=== PATIENT | female | born 1930 | race Caucasian/White ===

== ENCOUNTER 2016-10-09 07:08 | Emergency (ER) | payer MEDICARE, MEDICAID ==
[~2016-10-09 07:08] MED LIST: ACET-654 PO; ALBU83IN INH; ARIC10TA PO; ASPI81TA7 PO; ATEN25TA PO; ATEN50TA2 PO; CALTTAB11 PO; DIGO0.12 PO; ENSULIQ9 PO; FERR325T PO; FISH5CAP PO; FLAX10005 PO; FURO20TA2 PO; FURO40TA2 PO; LEVO88TA2 PO; LISI-542 PO; LOPR1TAB7 PO; OMEP40CA2 PO; POLYOPD OU; PRAD150C PO; PRIN10TA PO; SYNT88TA2 PO; TENO25TA PO; TYLE325T5 PO; XARE15TA PO; XARE20TA PO; albuterol; levoxyl; vitamin d
--- NOTE | 2016-10-09 08:00 | REPUSA ---
CLINICAL HISTORY: AMS. TECHNIQUE: Multiple axial CT images were obtained through the brain without IV contrast material. COMMENTS: Compared to 08/22/13 study. There is normal configuration of sella turcica. There are no intra or extra-axial collections. There is no mass effect or midline shift. There is no evidence of hematoma formation. No hydrocephalus is p resent. The ventricles are symmetrical. No abnormal calcifications are present. 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 There is diffuse age-appropriate cerebellar and cerebral atrophy with proportionally dilated ventricl es and cortical sulci. There are bilateral confluent periventricular and subcortical white matter hypolucencies compatible w ith severe chronic microvascular disease. Otherwise, no significant focal abnormalities are seen either in the posterior fossa or supratentoria l compartment. IMPRESSION: 1. Severe cerebellar and cerebral atrophy. 2. Severe chronic microvascular disease. 3. 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 4. No evidence of acute intracranial pathology. No interval change. Thank you for your kind referral of this patient.
[2016-10-09 08:06] LABS: BASO # 0.2 K/mm3 (0.0-0.2); BASO % 1.7 % (0.0-1.0); EOS # 0.5 K/mm3 (0.0-0.50); EOS % 5.5 % (0.0-3.0); LARGE UNSTAINED CELL # 0.2 K/mm3 (0.0-0.4); LARGE UNSTAINED CELL % 2.3 % (0.0-4.0); LYMPH # 1.2 K/mm3 (1.5-4.5); MEAN CORPUSCULAR HEMOGLOBIN 31.1 pg (27.0-33.0); MEAN CORPUSCULAR HGB CONC 33.6 g/dl (32.0-36.5); MEAN CORPUSCULAR VOLUME 92.7 fl (80.0-96.0); MONO # 0.8 K/mm3 (0.0-0.8); MONO % 9.2 % (0.0-5.0); NEUTROPHILS # 6.3 K/mm3 (1.8-7.7); NEUTROPHILS % 70.2 % (36.0-66.0); PLATELET COUNT, AUTOMATED 286 k/mm3 (150-450); WHITE BLOOD COUNT 8.9 K/mm3 (4.0-10.0)
[2016-10-09 08:22] LABS: ALBUMIN 3.9 GM/DL (3.2-5.2); ALBUMIN/GLOBULIN RATIO 0.98 (1.00-1.93); ALKALINE PHOSPHATASE 92 U/L (45-117); ALT/SGPT 28 U/L (12-78); ANION GAP 8 MEQ/L (8-16); AST/SGOT 23 U/L (15-37); BILIRUBIN,DIRECT 0.3 MG/DL (0.0-0.2); BILIRUBIN,TOTAL 1.2 MG/DL (0.2-1.0); BLOOD UREA NITROGEN 19 MG/DL (7-18); CALCIUM LEVEL 9.2 MG/DL (8.8-10.2); CARBON DIOXIDE LEVEL 33 MEQ/L (21-32); CHLORIDE LEVEL 101 MEQ/L (98-107); CREATININE FOR GFR 1.14 MG/DL (0.55-1.02); FREE T4 1.41 NG/DL (0.76-1.46); GLOMERULAR FILTRATION RATE 48.2 (>32); GLUCOSE, FASTING 97 MG/DL (83-110); POTASSIUM SERUM 3.5 MEQ/L (3.5-5.1); SODIUM LEVEL 142 MEQ/L (136-145); TOTAL PROTEIN 7.9 GM/DL (6.4-8.2)
--- NOTE | 2016-10-09 08:29 | REP ---
Clinical: Atrial fibrillation and chest pain . Comparison: 01/02/2016 . Technique: PA. Findings: The mediastinum and cardiac silhouette are normal. The lung sheffield demonstrate chronic stable changes and without acute consolidation, effusion, or pneumothorax. The skeletal structures are intact and normal. Impression: 1. No acute cardiopulmonary process. Signed by Myles Syed MD 10/09/2016 08:20 A
[2016-10-09 08:31] LABS: DIGOXIN LEVEL 0.9 NG/ML (0.5-2.0)
--- NOTE | 2016-10-09 09:59 | EDDOCDS ---
Nurse's Notes [facility] Name: Yashira Rangel Age: 86 yrs Sex: Female : 1930 Arrival Date: 10/09/2016 Time: 07:08 Bed 2 Private MD: Diagnosis: Unspecified dementia Presentation: 10/09 07:12 Presenting complaint: EMS states: found wandering around outside with pair of slippers ck1 and pajamas on. Patient found approximately 3-4 blocks from home address. Suicide/Homicide risk assessment- the patient denies having any suicidal and/or homicidal ideations and does not present with any other emotional, behavioral or mental health complaints. Status: Patient is not a ancillary services manager therapy or dependent. Transition of care: patient was not received from another setting of care. 07:12 Method Of Arrival: Ambulance ck1 07:29 Adult Sepsis Screening: The patient does not have new or worsening altered mentation. ck1 Patient's respiratory rate is less than 22. Systolic blood pressure is greater than 100. Patient has a qSOFA score of 0- Negative Sepsis Screen. 07:29 Acuity: SAVANAH Level 2 ck1 Triage Assessment: 07:28 General: Appears in no apparent distress, comfortable, Behavior is appropriate for age, ck1 cooperative. Pain: Denies pain. Neurological: Level of Consciousness is awake, confused, Oriented to person. Cardiovascular: Rhythm is sinus bradycardia. Respiratory: Respiratory effort is unlabored, Respiratory pattern is regular, symmetrical. GI: No deficits noted. Derm: Skin is pink, warm & dry. Musculoskeletal: Circulation, motion, and sensation intact Range of motion intact in all extremities. Historical: - Allergies: sulfamethoxazole-trimethoprim; Tylenol; Benadryl; Ceftin; Pravachol; Omeprazole; environmental allergies; - Home Meds: 1. Fish Oil 1,000 mg Oral cap daily 2. flax seed oil 1000 mg daily 3. Calcium + Vitamin D 600 - 400 mg Oral 2 tab daily 4. Lidoderm 5 % Topical ptmd 1 patch once daily 5. albuterol sulfate 2.5 mg /3 mL (0.083 %) Nebulizer nebu 3 times per day PRN 6. Artificial Tears Opht daily 7. ferrous sulfate 325 mg (65 mg iron) Oral cpER daily 8. Synthroid 88 mcg Oral tab 1 tab once daily 9. Aricept 10 mg Oral tab 1 tab once daily 10. tramadol 50 mg Oral tab every 6 hours PRN 11. furosemide 80 mg Oral tab 1 tab once daily 12. metoprolol tartrate 100 mg Oral tab 1 tab 2 times per day 13. Xarelto 15 mg oral tab daily 14. digoxin 125 mcg Oral tab 1 tab daily - PMHx: Hypothyroidism; Sleep Apnea w/o CPAP; Hypercholesterolemia; GERD; Atrial Fib; Dementia; - PSHx: Appendectomy; right carpal tongue; Colonoscopy; left carpal tunnel; Cholecystectomy; Cataract Surgery- Bilateral; - The history from nurses notes was reviewed: and I agree with what is documented. - Social history: Smoking status: Patient states former smoker of tobacco. No barriers to communication noted, The patient speaks fluent Lao, Speaks appropriately for age. - Family history: Not pertinent. - : The pt / caregiver states he / she is on anticoagulants: Xarelto Home medication list is obtained from [facility] office notes. - Hospitalizations: : No recent hospitalization is reported. - Exposure Risk Screening:: None identified. - Immunization history:: All immunizations up-to-date. - Social history:: the patient is a non-smoker, the patient does not drink alcohol, lives with daughter . Screenin:20 Screening information is obtained from prior medical records. Fall risk: At risk due to ck1 apparent cognitive impairment, The following interventions are performed due to a positive Fall Risk Screen: Fall Risk is added to Special Handling on the patient Summary Screen. A Fall Risk Bracelet was applied to the patient. Side Rails are placed in the up position. A Call Roche is given with instruction to call for help when getting out of bed. Fall Alert bracelet is placed on the patient. Abuse/DV Screen: The patient / caregiver reports he/she is: not in a situation that causes fear, pain or injury. Nutritional screening: No deficits noted. home support is adequate. 07:37 Assistance ADL's: Requires assistance with meal preparation, this assistance is ck1 provided by family members, medication administration, assistance is provided by family members. Advance Directives: There is an active Power of Space Engineer, Rosi Clifton (dtr). Assessment: 07:29 General: see triage note. ck1 08:20 General: Appears in no apparent distress, comfortable, Behavior is appropriate for age, ck1 cooperative. Pain: Denies pain. Neurological: Level of Consciousness is awake, confused, obeys commands, Oriented to person, place, time. Cardiovascular: Chest pain is denied. Respiratory: Respiratory effort is unlabored, Respiratory pattern is regular, symmetrical. GI: No deficits noted. Derm: Skin is intact, Skin is pink, warm & dry. 09:20 Reassessment: Patient appears in no apparent distress at this time. Patient denies pain ck1 at this time. 09:57 General: Appears in no apparent distress, comfortable, Behavior is appropriate for age, ck1 cooperative. Pain: Denies pain. Neurological: Level of Consciousness is awake, confused, obeys commands, Oriented to person. Respiratory: Respiratory effort is unlabored, Respiratory pattern is regular, symmetrical. GI: No deficits noted. Derm: Skin is intact, Skin is pink, warm & dry. Social Work Consult: 09:43 Social Work Note: Met with pt and her daughter and provided information on local ca services ([facility], [facility] daycare program, caregivers, etc). Pt's daughter is comfortable taking pt home and plans to initiate a number of plans to better care for pt in the daughter's home. No further needs at this time. Vital Signs: 07:18 BP 159 / 70 (auto/); ck1 07:19 BP 159 / 70; Pulse 63; Resp 18; Temp 97.0; Pulse Ox 97% on R/A; Weight 69.54 kg (M); ck1 Height 5 ft. 3 in. (160.02 cm); Pain 0/10; 07:21 Pulse 66 MON; Pulse Ox 95% ; ck1 07:45 BP 149 / 82 (auto/); ck1 07:46 Pulse 72 MON; Pulse Ox 96% ; ck1 08:00 BP 130 / 80 (auto/); ck1 08:01 Pulse 76 MON; Pulse Ox 96% ; ck1 08:15 BP 191 / 82 (auto/); ck1 08:16 Pulse 75 MON; Pulse Ox 97% ; ck1 08:30 BP 155 / 78 (auto/); ck1 08:31 Pulse 76 MON; Pulse Ox 100% ; ck1 08:45 BP 154 / 69 (auto/); ck1 08:46 Pulse 79 MON; Pulse Ox 95% ; ck1 09:00 BP 138 / 68 (auto/); ck1 09:00 Pulse 72 MON; Pulse Ox 96% ; ck1 09:15 BP 136 / 62 (auto/); ck1 09:16 Pulse 77 MON; Pulse Ox 98% ; ck1 09:56 BP 160 / 71; Pulse 89; Resp 18; Temp 96.7(O); Pulse Ox 97% on R/A; Pain 0/10; ck1 07:19 Body Mass Index 27.16 (69.54 kg, 160.02 cm) ck1 Vitals: 07:15 Log In Time N/A - ambulance arrival. ck1 ED Course: 07:09 Patient visited by Laura Lawson, Residential Building Inspector. deg 07:09 Patient moved to Waiting deg 07:10 Cat Garcia RN is Primary Nurse. deg 07:10 Valentine Ramirez RN is Primary Nurse. deg 07:10 Patient moved to 2 deg 07:14 Phi Franklin MD is Attending Physician. pc 07:27 Patient visited by Phi Franklin MD. pc 07:29 The patient / caregiver is instructed regarding the plan of care and ED course. ck1 07:30 Triage Initiated ck1 07:33 Patient visited by Kerwin Becker. tk 07:33 EKG done. (by ED staff). Reviewed by Phi Franklin MD. tk 07:52 TSH with Free T4 Sent. ck1 07:52 Digoxin Level Sent. ck1 07:52 CBC with Diff Sent. ck1 07:52 Cardiac Injury Profile Sent. ck1 07:52 Liver Profile Sent. ck1 07:52 MED Profile Sent. ck1 07:52 Thyroid Stimulating Hormone Sent. ck1 07:52 Troponin Sent. ck1 07:52 Inserted saline lock: 20 gauge in right hand The patient tolerated the procedure well. ck1 07:53 Patient visited by Valentine Ramirez,THUAN. ck1 08:17 Patient visited by Valentine Ramirez,THUAN. ck1 08:18 Urinalysis Sent. ck1 08:32 CT Head Without Contrast Returned. EDMS 08:33 Chest, 1 View Returned. EDMS 08:51 Patient visited by Valentine Ramirez,THUAN. ck1 09:17 Patient visited by Valentine Ramirez,THUAN. ck1 09:33 [facility] Payment Agreement was scanned into [employer] and attached to record. jp5 09:42 Referral list, As provided by [facility] is Referral Physician. pc 09:42 Miracle Chan FNP is Referral Physician. pc 09:56 Discontinued lock intact, bleeding controlled, pressure dressing applied, No ck1 redness/swelling at site. No procedures done that require assistance. Point of Care Testing: Blood Glucose: 08:17 Blood Glucose: 90 mg/dL; ck1 Ranges: Order Results: Lab Order: CBC with Diff; SPEC'M 10/09/16 07:51 Test: WHITE BLOOD COUNT; Value: 8.9; Range: 4.0-10.0; Units: K/mm3; Status: F Test: RED BLOOD COUNT; Value: 4.58; Range: 4.00-5.40; Units: M/mm3; Status: F Test: HEMOGLOBIN; Value: 14.2; Range: 12.0-16.0; Units: g/dl; Status: F Test: HEMATOCRIT; Value: 42.4; Range: 36.0-47.0; Units: %; Status: F Test: MEAN CORPUSCULAR VOLUME; Value: 92.7; Range: 80.0-96.0; Units: fl; Status: F Test: MEAN CORPUSCULAR HEMOGLOBIN; Value: 31.1; Range: 27.0-33.0; Units: pg; Status: F Test: MEAN CORPUSCULAR HGB CONC; Value: 33.6; Range: 32.0-36.5; Units: g/dl; Status: F Test: RED CELL DISTRIBUTION WIDTH; Value: 14.0; Range: 11.5-14.5; Units: %; Status: F Test: PLATELET COUNT, AUTOMATED; Value: 286; Range: 150-450; Units: k/mm3; Status: F Test: NEUTROPHILS %; Value: 70.2; Range: 36.0-66.0; Abnormal: Above high normal; Units: %; Status: F Test: LYMPH %; Value: 11.0; Range: 24.0-44.0; Abnormal: Below low normal; Units: %; Status: F Test: MONO %; Value: 9.2; Range: 0.0-5.0; Abnormal: Above high normal; Units: %; Status: F Test: EOS %; Value: 5.5; Range: 0.0-3.0; Abnormal: Above high normal; Units: %; Status: F Test: BASO %; Value: 1.7; Range: 0.0-1.0; Abnormal: Above high normal; Units: %; Status: F Test: LARGE UNSTAINED CELL %; Value: 2.3; Range: 0.0-4.0; Units: %; Status: F Test: NEUTROPHILS #; Value: 6.3; Range: 1.8-7.7; Units: K/mm3; Status: F Test: LYMPH #; Value: 1.2; Range: 1.5-4.5; Abnormal: Below low normal; Units: K/mm3; Status: F Test: MONO #; Value: 0.8; Range: 0.0-0.8; Units: K/mm3; Status: F Test: EOS #; Value: 0.5; Range: 0.0-0.50; Units: K/mm3; Status: F Test: BASO #; Value: 0.2; Range: 0.0-0.2; Units: K/mm3; Status: F Test: LARGE UNSTAINED CELL #; Value: 0.2; Range: 0.0-0.4; Units: K/mm3; Status: F Lab Order: Cardiac Injury Profile; SPEC'M 10/09/16 07:51 Test: CPK CREATINE PHOSPHOKINASE; Value: 63; Range: 26-192; Units: U/L; Status: F Test: CK-MB VALUE MASS; Value: 1.3; Range: 0.0-3.6; Units: NG/ML; Status: F Test: MB/CK RELATIVE INDEX; Value: 2.06; Range: < OR =4; Status: F Test Note: ; DIAGNOSIS CRITERIA MMB ng/ml Relative Index (RI) NON-AMI < or = 5 N/A POSEY ZONE > 5 < or = 4 AMI > 5 > 4 Lab Order: Liver Profile; SPEC'M 10/09/16 07:51 Test: AST/SGOT; Value: 23; Range: 15-37; Units: U/L; Status: F Test: ALT/SGPT; Value: 28; Range: 12-78; Units: U/L; Status: F Test: ALKALINE PHOSPHATASE; Value: 92; Range: 45-117; Units: U/L; Status: F Test: BILIRUBIN,TOTAL; Value: 1.2; Range: 0.2-1.0; Abnormal: Above high normal; Units: MG/DL; Status: F Test: BILIRUBIN,DIRECT; Value: 0.3; Range: 0.0-0.2; Abnormal: Above high normal; Units: MG/DL; Status: F Test: TOTAL PROTEIN; Value: 7.9; Range: 6.4-8.2; Units: GM/DL; Status: F Test: ALBUMIN; Value: 3.9; Range: 3.2-5.2; Units: GM/DL; Status: F Test: ALBUMIN/GLOBULIN RATIO; Value: 0.98; Range: 1.00-1.93; Abnormal: Below low normal; Status: F Lab Order: MED Profile; [facility] 10/09/16 07:51 Test: GLUCOSE, FASTING; Value: 97; Range: 83-110; Units: MG/DL; Status: F Test: BLOOD UREA NITROGEN; Value: 19; Range: 7-18; Abnormal: Above high normal; Units: MG/DL; Status: F Test: CREATININE FOR GFR; Value: 1.14; Range: 0.55-1.02; Abnormal: Above high normal; Units: MG/DL; Status: F Test: GLOMERULAR FILTRATION RATE; Value: 48.2; Range: >32; Status: F Test: SODIUM LEVEL; Value: 142; Range: 136-145; Units: MEQ/L; Status: F Test: POTASSIUM SERUM; Value: 3.5; Range: 3.5-5.1; Units: MEQ/L; Status: F Test: CHLORIDE LEVEL; Value: 101; Range: 98-107; Units: MEQ/L; Status: F Test: CARBON DIOXIDE LEVEL; Value: 33; Range: 21-32; Abnormal: Above high normal; Units: MEQ/L; Status: F Test: ANION GAP; Value: 8; Range: 8-16; Units: MEQ/L; Status: F Test: CALCIUM LEVEL; Value: 9.2; Range: 8.8-10.2; Units: MG/DL; Status: F Test Note: ; Units are mL/min/1.73 m2 Chronic Kidney Disease Staging per NKF: Stage I & II GFR >=60 Normal to Mildly Decreased Stage III GFR 30-59 Moderately Decreased Stage IV GFR 15-29 Severely Decreased Stage V GFR <15 Very Little GFR Left ESRD GFR <15 on INVESTMENT ANALYST Lab Order: Troponin; [facility] 10/09/16 07:51 Test: TROPONIN I; Value: < 0.02; Range: < 0.10; Units: NG/ML; Status: F Test Note: ; Troponin I Reference Interval for Siemens Ivisys LOCI: 99th Percentile= 0.00-0.045 ng/ml Risk Stratification: <= 0.10 ng/ml Decreased Risk for Adverse Clinical Events. 0.10-1.50 ng/ml Increased Risk for Adverse Clinical Events. Evaluation of additional criterion and/or repeat testing in 2-6 hours is suggested to rule out myocardial damage. >= 1.50 ng/ml Indicative of Myocardial Injury. Lab Order: Digoxin Level; [facility] 10/09/16 07:51 Test: DIGOXIN LEVEL; Value: 0.9; Range: 0.5-2.0; Units: NG/ML; Status: F Lab Order: TSH with Free T4; [facility] 10/09/16 07:51 Test: THYROID STIMULATING HORMONE; Value: 1.260; Range: 0.358-3.740; Units: uIU/ML; Status: F Test: FREE T4; Value: 1.41; Range: 0.76-1.46; Units: NG/DL; Status: F Lab Order: Urinalysis; [facility] 10/09/16 08:14 Test: APPEARANCE, URINE; Value: CLEAR; Range: CLEAR; Status: F Test: COLOR, URINE; Value: STRAW; Range: YELLOW; Status: F Test: PH,URINE; Value: 7.0; Range: 5.0-9.0; Units: UNITS; Status: F Test: SPECIFIC GRAVITY URINE AUTO; Value: 1.005; Range: 1.002-1.035; Status: F Test: PROTEIN, URINE AUTO; Value: NEGATIVE; Range: NEGATIVE; Units: mg/dL; Status: F Test: GLUCOSE, URINE (UA) AUTO; Value: NEGATIVE; Range: NEGATIVE; Units: mg/dL; Status: F Test: KETONE, URINE AUTO; Value: NEGATIVE; Range: NEGATIVE; Units: mg/dL; Status: F Test: UROBILINOGEN, URINE AUTO; Value: 0.2; Range: 0.0-2.0; Units: mg/dL; Status: F Test: BILIRUBIN, URINE AUTO; Value: NEGATIVE; Range: NEGATIVE; Status: F Test: NITRITE, URINE AUTO; Value: NEGATIVE; Range: NEGATIVE; Status: F Test: LEUKOCYTE ESTERASE, URINE AUTO; Value: TRACE; Range: NEGATIVE; Abnormal: Above high normal; Status: F Test: BLOOD, URINE BLOOD; Value: NEGATIVE; Range: NEGATIVE; Status: F Test: WBC, URINE AUTO; Value: 2; Range: 0-3; Units: /HPF; Status: F Test: RBC, URINE AUTO; Value: 2; Range: 0-3; Units: /HPF; Status: F Test: BACTERIA, URINE AUTO; Value: NEGATIVE; Range: NEGATIVE; Status: F Test: SQUAMOUS EPITHELIAL CELL UR AU; Value: 0; Range: 0-6; Units: /HPF; Status: F Test: HYALINE CAST, URINE AUTO; Value: 0; Range: 0-1; Units: /LPF; Status: F Lab Order: Fingerstick Blood Sugar; SPEC'M 10/09/16 08:16 Test: BEDSIDE GLUCOSE; Value: 94; Range: 83-110; Units: MG/DL; Status: F Radiology Order: CT Head Without Contrast Test: CT Head Without Contrast REASON FOR EXAMINATION: AMS; ; CLINICAL HISTORY: AMS.; TECHNIQUE: Multiple axial CT images were obtained through the brain without IV contrast material.; COMMENTS: Compared to 08/22/13 study.; There is normal configuration of sella turcica. There are no intra or extra-axial collections. There; is no mass effect or midline shift. There is no evidence of hematoma formation. No hydrocephalus is p; resent. The ventricles are symmetrical. 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 Severe cerebellar and cerebral atrophy.; 2. Severe chronic microvascular disease.; 3. 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 No evidence of acute intracranial pathology. No interval change.; Thank you for your kind referral of this patient.; ; ; Radiology Order: Chest, 1 View Test: Chest, 1 View REASON FOR EXAMINATION: Afib; Clinical: Atrial fibrillation and chest pain .; ; Comparison: 01/02/2016 .; ; Technique: PA.; ; Findings:; The mediastinum and cardiac silhouette are normal. The lung sheffield demonstrate; chronic stable changes and without acute consolidation, effusion, or; pneumothorax. The skeletal structures are intact and normal.; ; Impression:; 1. No acute cardiopulmonary process.; ; ; Signed by; Myles Syed MD 10/09/2016 08:20 A; Outcome: 07:35 CT Study completed. ck1 09:42 Discharge ordered by Provider. pc 09:56 Discharge Assessment: Patient awake, alert and oriented x 3. No cognitive and/or ck1 functional deficits noted. Patient verbalized understanding of disposition instructions. patient administered narcotics - no. The following High Risk Discharge criteria are identified: None. Discharged to home via wheelchair, with family. Condition: stable. Discharge instructions given to patient, Instructed on discharge instructions, follow up and referral plans. medication usage, Demonstrated understanding of instructions, medications, Pt was receptive of discharge instructions/ teaching. Property :Personal belongings accompany Pt. 09:57 Patient left the ED. ck1 Signatures: Dispatcher [employer] EDMS Phi Franklin MD MD pc Murray, Denise, Residential Building Inspector Unit deg Gris Licona, Valentine Shaikh RN RN ck1 Veronica Hardy jp5 Kerwin Becker Corrections: (The following items were deleted from the chart) 07:31 07:29 Acuity: SAVANAH Level 3 ck1 ck1 09:21 08:20 Neurological: Level of Consciousness is awake, alert, obeys commands, Oriented to ck1 person, place, time, ck1 MTDD
--- NOTE | 2016-10-09 09:59 | EDDOCDS ---
Physician Documentation [facility] Name: Yashira Rangel Age: 86 yrs Sex: Female : 1930 Arrival Date: 10/09/2016 Time: 07:08 Bed 2 Private MD: Disposition: 10/09 09:40 Critical Care: Critical care not applicable. pc Disposition: 10/09/16 09:42 Discharged to Home/Self Care. Impression: Unspecified dementia. - Condition is Stable. - Discharge Instructions: Dementia. - Medication Reconciliation, Local Pharmacy Hours form. - Follow up: Referral list, As provided by PFS; When: Call to arrange an appointment; Reason: Continuance of care. Follow up: Miracle Chan FNP; When: Call to arrange an appointment; Reason: Continuance of care. - Problem is an acute exacerbation. - Symptoms have improved. HPI: 07:42 This 86 yrs old Female presents to ER via Ambulance with complaints of pc Altered Mental Status. 07:42 The history is obtained from EMS providers. A reliable history and/or examination was pc not able to be obtained, due to baseline dementia. She was found wandering by a local restaurant in 22 degree weather, wearing only a night gown and slippers. The co director took her inside and and warmed her up by a fireplace and called police. EMS transported her here. She knows her last name and her . She has no visible injuries and denies any pain a dn has no complaints. Her EMR was reviewed, and it is noted that she has dementia, that she lives with her daughter, Rosi Clifton, who has been contacted by police and is on her way to the ED. 07:53 The patient has not experienced similar symptoms in the past. The patient has been pc recently seen by their primary care provider, and was started on a second dementia medication. Historical: - Allergies: sulfamethoxazole-trimethoprim; Tylenol; Benadryl; Ceftin; Pravachol; Omeprazole; environmental allergies; - Home Meds: 1. Fish Oil 1,000 mg Oral cap daily 2. flax seed oil 1000 mg daily 3. Calcium + Vitamin D 600 - 400 mg Oral 2 tab daily 4. Lidoderm 5 % Topical ptmd 1 patch once daily 5. albuterol sulfate 2.5 mg /3 mL (0.083 %) Nebulizer nebu 3 times per day PRN 6. Artificial Tears Opht daily 7. ferrous sulfate 325 mg (65 mg iron) Oral cpER daily 8. Synthroid 88 mcg Oral tab 1 tab once daily 9. Aricept 10 mg Oral tab 1 tab once daily 10. tramadol 50 mg Oral tab every 6 hours PRN 11. furosemide 80 mg Oral tab 1 tab once daily 12. metoprolol tartrate 100 mg Oral tab 1 tab 2 times per day 13. Xarelto 15 mg oral tab daily 14. digoxin 125 mcg Oral tab 1 tab daily - PMHx: Hypothyroidism; Sleep Apnea w/o CPAP; Hypercholesterolemia; GERD; Atrial Fib; Dementia; - PSHx: Appendectomy; right carpal tongue; Colonoscopy; left carpal tunnel; Cholecystectomy; Cataract Surgery- Bilateral; - The history from nurses notes was reviewed: and I agree with what is documented. - Social history: Smoking status: Patient states former smoker of tobacco. No barriers to communication noted, The patient speaks fluent Icelandic, Speaks appropriately for age. - Family history: Not pertinent. - : The pt / caregiver states he / she is on anticoagulants: Xarelto Home medication list is obtained from [facility] office notes. - Hospitalizations: : No recent hospitalization is reported. - Exposure Risk Screening:: None identified. - Immunization history:: All immunizations up-to-date. - Social history:: the patient is a non-smoker, the patient does not drink alcohol, lives with daughter . ROS: 07:53 All systems are negative except as listed. pc Exam: 07:53 General Appearance: no acute distress, alert. pc 07:53 EENT: normal eye inspection, ears, nose and throat normal, pharynx normal, mucous membranes moist 07:53 Neck: The exam reveals no acute abnormalities. ROM is normal and painless. No nuchal rigidity is noted.. 07:53 Respiratory: no respiratory distress, normal breath sounds, chest non-tender. 07:53 CVS: regular pulse rate, normal S1 and S2, no murmurs, strong peripheral pulses, irregularly irregular 07:53 Abdomen: soft, non-tender, no organomegaly, normal bowel sounds. 07:53 Back: normal inspection. 07:53 : bladder is non-distended, non-tender. 07:53 Skin: skin color is normal, warm, dry. 07:53 Extremities: The extremities have a grossly normal appearance, are non-tender, without acute ROM abnormalities. 07:53 Neuro: cranial nerves normal as tested, no motor deficits, no sensory deficits, not oriented to place, time. 07:53 Psych: normal mood. Vital Signs: 07:18 BP 159 / 70 (auto/); ck1 07:19 BP 159 / 70; Pulse 63; Resp 18; Temp 97.0; Pulse Ox 97% on R/A; Weight 69.54 kg / ck1 153.31 lbs (M); Height 5 ft. 3 in. (160.02 cm); Pain 0/10; 07:21 Pulse 66 MON; Pulse Ox 95% ; ck1 07:45 BP 149 / 82 (auto/); ck1 07:46 Pulse 72 MON; Pulse Ox 96% ; ck1 08:00 BP 130 / 80 (auto/); ck1 08:01 Pulse 76 MON; Pulse Ox 96% ; ck1 08:15 BP 191 / 82 (auto/); ck1 08:16 Pulse 75 MON; Pulse Ox 97% ; ck1 08:30 BP 155 / 78 (auto/); ck1 08:31 Pulse 76 MON; Pulse Ox 100% ; ck1 08:45 BP 154 / 69 (auto/); ck1 08:46 Pulse 79 MON; Pulse Ox 95% ; ck1 09:00 BP 138 / 68 (auto/); ck1 09:00 Pulse 72 MON; Pulse Ox 96% ; ck1 09:15 BP 136 / 62 (auto/); ck1 09:16 Pulse 77 MON; Pulse Ox 98% ; ck1 09:56 BP 160 / 71; Pulse 89; Resp 18; Temp 96.7(O); Pulse Ox 97% on R/A; Pain 0/10; ck1 07:19 Body Mass Index 27.16 (69.54 kg, 160.02 cm) ck1 MDM: 07:17 Pewter Finisher/Pulse Ox/q 15 min VS ordered. pc 07:17 Accucheck ordered. pc 07:17 IV Saline Lock ordered. pc 07:17 Rhythm Strip to chart ordered. pc 07:17 CBC with Diff Ordered. EDMS 07:17 Cardiac Injury Profile Ordered. EDMS 07:17 Liver Profile Ordered. EDMS 07:17 MED Profile Ordered. EDMS 07:18 Thyroid Stimulating Hormone Ordered. EDMS 07:18 Troponin Ordered. EDMS 07:18 Digoxin Level Ordered. EDMS 07:18 TSH with Free T4 Ordered. EDMS 07:18 CT Head Without Contrast Ordered. EDMS 07:19 Chest, 1 View Ordered. EDMS 07:19 ECG WITH READING ER PHYS+CARDIAG ordered. EDMS 07:53 Differential Diagnosis: dementia, found wandering without hypothermia and no signs of pc injury. Plan: labs, EKG, CT, CXR. Test interpretation: EKG. 08:15 Urinalysis Ordered. EDMS 08:17 CBC with Diff Reviewed. pc 08:24 Liver Profile Reviewed. pc 08:24 MED Profile Reviewed. pc 08:24 Urinalysis Reviewed. pc 08:24 Troponin Reviewed. pc 08:50 Liver Profile Reviewed. pc 08:50 MED Profile Reviewed. pc 08:50 Cardiac Injury Profile Reviewed. pc 08:50 Troponin Reviewed. pc 08:50 Digoxin Level Reviewed. pc 08:50 TSH with Free T4 Reviewed. pc 08:50 CT Head Without Contrast Reviewed. pc 08:50 Chest, 1 View Reviewed. pc 08:56 Fingerstick Blood Sugar Ordered. EDMS 09:09 Fingerstick Blood Sugar Reviewed. pc 09:12 Data reviewed: old medical records, vital signs, nurses notes, EKG(s), lab test pc results, all radiology studies and available results. Test interpretation: LAB - all labs as ordered have been reviewed, interpreted and considered in the overall management of the clinical presentation; X-RAY - interpreted by me, 1 view chest no acute disease, interpreted by Radiologist and personally reviewed, Head CT; no acute disease. The patient has been re-examined and re-evaluated. The clinical presentation did not require any ED treatment or interventions. ED course: Her daughter is in attendance and is requesting elementary school social worker involvement re: services, adult day care, etc.. Other consultation: The ED animal control licensing worker was notified and will evaluate the patient. 09:33 [facility] Payment Agreement was scanned into [employer] and attached to record. 5 09:33 Financial registration complete. 5 09:40 Disposition: The historical points, examination findings, and any diagnostic results pc supporting the provided diagnosis, were discussed with the patient or legal guardian. The need for outpatient follow up with the provider listed on their discharge instructions was discussed. They were encouraged to return to [facility], or the nearest ED, if symptoms worsen/persist, or for any other questions/concerns. EC:53 Rate is 71 beats/min. Rhythm is irregularly irregular, A fib. Left axis deviation pc noted. QRS is negative in leads II, aVF. QRS interval is normal. QT interval is normal. Q waves are Present in lead aVL. T waves are Inverted in lead aVL. ST Segment is depressed in leads I, aVL, <1mm. Clinical impression: Nonspecific ST-T changes, Atrial Fibrillation w/o RVR, and LAFB. No change from previous ECG in December,. Point of Care Testing: Blood Glucose: 08:17 Blood Glucose: 90 mg/dL; ck1 Ranges: Signatures: Dispatcher [employer] EDMS Phi Franklin MD MD pc Kim-Ashcraft, Connie, RN RN ck1 Veronica Hardy jp5 The chart was reviewed and I authenticate all verbal orders and agree with the evaluation and treatment provided.Corrections: (The following items were deleted from the chart) 07:58 07:42 She was found wandering by a local restaurant in 22 degree weather, wearing only pc a night gown and slippers. The co director took her inside and and warmed her up by a fireplace and called police. EMS transported her here. She knows her last name and her . pc Attachments: 09:33 [facility] Payment Agreement jp5 MTDD
--- NOTE | 2016-10-10 12:48 | ECGEPIP ---
Stationary ECG Study [facility] - ED Test Date: 2016-10-09 Pat Name: DEA BYERS Department: Room: - Gender: F Monkey Breeder: tk : 1930 Requested By: Phi River Order Number: [id number] Reading MD: Latia Pereira Measurements Intervals Soldier Rate: 71 P: VA: 0 QRS: -58 QRSD: 94 T: 72 QT: 419 QTc: 456 Interpretive Statements ATRIAL FIBRILLATION LEFT ANTERIOR FASCICULAR BLOCK MODERATE VOLTAGE CRITERIA FOR LVH, CONSIDER NORMAL VARIANT POSSIBLE ANTERIOR MYOCARDIAL INFARCTION, OF INDETERMINATE AGE DECREASED RATE 01/02/16 Electronically Signed On 10-10-2016 12:48:02 EST by Latia Pereira
--- NOTE | 2016-10-11 10:58 | EDDOCDS ---
Physician Documentation [facility] Name: Yashira Rangel Age: 86 yrs Sex: Female : 1930 Arrival Date: 10/09/2016 Time: 07:08 Bed 2 Private MD: Disposition: 10/09 09:40 Critical Care: Critical care not applicable. pc Disposition: 10/09/16 09:42 Discharged to Home/Self Care. Impression: Unspecified dementia. - Condition is Stable. - Discharge Instructions: Dementia. - Medication Reconciliation, Local Pharmacy Hours form. - Follow up: Referral list, As provided by PFS; When: Call to arrange an appointment; Reason: Continuance of care. Follow up: Miracle Chan FNP; When: Call to arrange an appointment; Reason: Continuance of care. - Problem is an acute exacerbation. - Symptoms have improved. HPI: 07:42 This 86 yrs old Female presents to ER via Ambulance with complaints of pc Altered Mental Status. 07:42 The history is obtained from EMS providers. A reliable history and/or examination was pc not able to be obtained, due to baseline dementia. She was found wandering by a local restaurant in 22 degree weather, wearing only a night gown and slippers. The business owner/engineer took her inside and and warmed her up by a fireplace and called police. EMS transported her here. She knows her last name and her . She has no visible injuries and denies any pain a dn has no complaints. Her EMR was reviewed, and it is noted that she has dementia, that she lives with her daughter, Rosi Clifton, who has been contacted by police and is on her way to the ED. 07:53 The patient has not experienced similar symptoms in the past. The patient has been pc recently seen by their primary care provider, and was started on a second dementia medication. Historical: - Allergies: sulfamethoxazole-trimethoprim; Tylenol; Benadryl; Ceftin; Pravachol; Omeprazole; environmental allergies; - Home Meds: 1. Fish Oil 1,000 mg Oral cap daily 2. flax seed oil 1000 mg daily 3. Calcium + Vitamin D 600 - 400 mg Oral 2 tab daily 4. Lidoderm 5 % Topical ptmd 1 patch once daily 5. albuterol sulfate 2.5 mg /3 mL (0.083 %) Nebulizer nebu 3 times per day PRN 6. Artificial Tears Opht daily 7. ferrous sulfate 325 mg (65 mg iron) Oral cpER daily 8. Synthroid 88 mcg Oral tab 1 tab once daily 9. Aricept 10 mg Oral tab 1 tab once daily 10. tramadol 50 mg Oral tab every 6 hours PRN 11. furosemide 80 mg Oral tab 1 tab once daily 12. metoprolol tartrate 100 mg Oral tab 1 tab 2 times per day 13. Xarelto 15 mg oral tab daily 14. digoxin 125 mcg Oral tab 1 tab daily - PMHx: Hypothyroidism; Sleep Apnea w/o CPAP; Hypercholesterolemia; GERD; Atrial Fib; Dementia; - PSHx: Appendectomy; right carpal tongue; Colonoscopy; left carpal tunnel; Cholecystectomy; Cataract Surgery- Bilateral; - The history from nurses notes was reviewed: and I agree with what is documented. - Social history: Smoking status: Patient states former smoker of tobacco. No barriers to communication noted, The patient speaks fluent Persian, Speaks appropriately for age. - Family history: Not pertinent. - : The pt / caregiver states he / she is on anticoagulants: Xarelto Home medication list is obtained from [facility] office notes. - Hospitalizations: : No recent hospitalization is reported. - Exposure Risk Screening:: None identified. - Immunization history:: All immunizations up-to-date. - Social history:: the patient is a non-smoker, the patient does not drink alcohol, lives with daughter . ROS: 07:53 All systems are negative except as listed. pc Exam: 07:53 General Appearance: no acute distress, alert. pc 07:53 EENT: normal eye inspection, ears, nose and throat normal, pharynx normal, mucous membranes moist 07:53 Neck: The exam reveals no acute abnormalities. ROM is normal and painless. No nuchal rigidity is noted.. 07:53 Respiratory: no respiratory distress, normal breath sounds, chest non-tender. 07:53 CVS: regular pulse rate, normal S1 and S2, no murmurs, strong peripheral pulses, irregularly irregular 07:53 Abdomen: soft, non-tender, no organomegaly, normal bowel sounds. 07:53 Back: normal inspection. 07:53 : bladder is non-distended, non-tender. 07:53 Skin: skin color is normal, warm, dry. 07:53 Extremities: The extremities have a grossly normal appearance, are non-tender, without acute ROM abnormalities. 07:53 Neuro: cranial nerves normal as tested, no motor deficits, no sensory deficits, not oriented to place, time. 07:53 Psych: normal mood. Vital Signs: 07:18 BP 159 / 70 (auto/); ck1 07:19 BP 159 / 70; Pulse 63; Resp 18; Temp 97.0; Pulse Ox 97% on R/A; Weight 69.54 kg / ck1 153.31 lbs (M); Height 5 ft. 3 in. (160.02 cm); Pain 0/10; 07:21 Pulse 66 MON; Pulse Ox 95% ; ck1 07:45 BP 149 / 82 (auto/); ck1 07:46 Pulse 72 MON; Pulse Ox 96% ; ck1 08:00 BP 130 / 80 (auto/); ck1 08:01 Pulse 76 MON; Pulse Ox 96% ; ck1 08:15 BP 191 / 82 (auto/); ck1 08:16 Pulse 75 MON; Pulse Ox 97% ; ck1 08:30 BP 155 / 78 (auto/); ck1 08:31 Pulse 76 MON; Pulse Ox 100% ; ck1 08:45 BP 154 / 69 (auto/); ck1 08:46 Pulse 79 MON; Pulse Ox 95% ; ck1 09:00 BP 138 / 68 (auto/); ck1 09:00 Pulse 72 MON; Pulse Ox 96% ; ck1 09:15 BP 136 / 62 (auto/); ck1 09:16 Pulse 77 MON; Pulse Ox 98% ; ck1 09:56 BP 160 / 71; Pulse 89; Resp 18; Temp 96.7(O); Pulse Ox 97% on R/A; Pain 0/10; ck1 07:19 Body Mass Index 27.16 (69.54 kg, 160.02 cm) ck1 MDM: 07:17 Flight Test Data Acquisition Technician/Pulse Ox/q 15 min VS ordered. pc 07:17 Accucheck ordered. pc 07:17 IV Saline Lock ordered. pc 07:17 Rhythm Strip to chart ordered. pc 07:17 CBC with Diff Ordered. EDMS 07:17 Cardiac Injury Profile Ordered. EDMS 07:17 Liver Profile Ordered. EDMS 07:17 MED Profile Ordered. EDMS 07:18 Thyroid Stimulating Hormone Ordered. EDMS 07:18 Troponin Ordered. EDMS 07:18 Digoxin Level Ordered. EDMS 07:18 TSH with Free T4 Ordered. EDMS 07:18 CT Head Without Contrast Ordered. EDMS 07:19 Chest, 1 View Ordered. EDMS 07:19 ECG WITH READING ER PHYS+CARDIAG ordered. EDMS 07:53 Differential Diagnosis: dementia, found wandering without hypothermia and no signs of pc injury. Plan: labs, EKG, CT, CXR. Test interpretation: EKG. 08:15 Urinalysis Ordered. EDMS 08:17 CBC with Diff Reviewed. pc 08:24 Liver Profile Reviewed. pc 08:24 MED Profile Reviewed. pc 08:24 Urinalysis Reviewed. pc 08:24 Troponin Reviewed. pc 08:50 Liver Profile Reviewed. pc 08:50 MED Profile Reviewed. pc 08:50 Cardiac Injury Profile Reviewed. pc 08:50 Troponin Reviewed. pc 08:50 Digoxin Level Reviewed. pc 08:50 TSH with Free T4 Reviewed. pc 08:50 CT Head Without Contrast Reviewed. pc 08:50 Chest, 1 View Reviewed. pc 08:56 Fingerstick Blood Sugar Ordered. EDMS 09:09 Fingerstick Blood Sugar Reviewed. pc 09:12 Data reviewed: old medical records, vital signs, nurses notes, EKG(s), lab test pc results, all radiology studies and available results. Test interpretation: LAB - all labs as ordered have been reviewed, interpreted and considered in the overall management of the clinical presentation; X-RAY - interpreted by me, 1 view chest no acute disease, interpreted by Radiologist and personally reviewed, Head CT; no acute disease. The patient has been re-examined and re-evaluated. The clinical presentation did not require any ED treatment or interventions. ED course: Her daughter is in attendance and is requesting oncology social worker involvement re: services, adult day care, etc.. Other consultation: The ED psychiatric social worker supervisor was notified and will evaluate the patient. 09:33 [facility] [place] [facility] Payment Agreement was scanned into [employer] and attached to record. 5 09:33 Financial registration complete. jp5 09:40 Disposition: The historical points, examination findings, and any diagnostic results pc supporting the provided diagnosis, were discussed with the patient or legal guardian. The need for outpatient follow up with the provider listed on their discharge instructions was discussed. They were encouraged to return to [facility], or the nearest ED, if symptoms worsen/persist, or for any other questions/concerns. 01/16 11:03 ECG/EKG was scanned into [employer] and attached to record. 11:03 Radiology Report was scanned into [employer] and attached to record. EC/15 07:53 Rate is 71 beats/min. Rhythm is irregularly irregular, A fib. Left axis deviation pc noted. QRS is negative in leads II, aVF. QRS interval is normal. QT interval is normal. Q waves are Present in lead aVL. T waves are Inverted in lead aVL. ST Segment is depressed in leads I, aVL, <1mm. Clinical impression: Nonspecific ST-T changes, Atrial Fibrillation w/o RVR, and LAFB. No change from previous ECG in December,. Point of Care Testing: Blood Glucose: 08:17 Blood Glucose: 90 mg/dL; ck1 Ranges: Signatures: Dispatcher [employer] EDMS Phi Franklin MD MD pc Barnhardt, Gloria, Reg Reg Valentine MnedozaRN RN ck1 Veronica Hardy jp5 The chart was reviewed and I authenticate all verbal orders and agree with the evaluation and treatment provided.Corrections: (The following items were deleted from the chart) 07:58 07:42 She was found wandering by a local restaurant in 22 degree weather, wearing only pc a night gown and slippers. The business owner/engineer took her inside and and warmed her up by a fireplace and called police. EMS transported her here. She knows her last name and her . pc Attachments: 09:33 [facility] Payment Agreement jp5 10/10 11:03 ECG/EKG Chart Complete MTDD
--- NOTE | 2016-10-11 10:58 | EDDOCDS ---
Physician Documentation [facility] Name: Yashira Rangel Age: 86 yrs Sex: Female : 1930 Arrival Date: 10/09/2016 Time: 07:08 Bed 2 Private MD: Disposition: 10/09 09:40 Critical Care: Critical care not applicable. pc Disposition: 10/09/16 09:42 Discharged to Home/Self Care. Impression: Unspecified dementia. - Condition is Stable. - Discharge Instructions: Dementia. - Medication Reconciliation, Local Pharmacy Hours form. - Follow up: Referral list, As provided by [facility]; When: Call to arrange an appointment; Reason: Continuance of care. Follow up: Miracle Chan FNP; When: Call to arrange an appointment; Reason: Continuance of care. - Problem is an acute exacerbation. - Symptoms have improved. HPI: 07:42 This 86 yrs old Female presents to ER via Ambulance with complaints of pc Altered Mental Status. 07:42 The history is obtained from EMS providers. A reliable history and/or examination was pc not able to be obtained, due to baseline dementia. She was found wandering by a local restaurant in 22 degree weather, wearing only a night gown and slippers. The garment presser took her inside and and warmed her up by a fireplace and called police. EMS transported her here. She knows her last name and her . She has no visible injuries and denies any pain a dn has no complaints. Her EMR was reviewed, and it is noted that she has dementia, that she lives with her daughter, Rosi Clifton, who has been contacted by police and is on her way to the ED. 07:53 The patient has not experienced similar symptoms in the past. The patient has been pc recently seen by their primary care provider, and was started on a second dementia medication. Historical: - Allergies: sulfamethoxazole-trimethoprim; Tylenol; Benadryl; Ceftin; Pravachol; Omeprazole; environmental allergies; - Home Meds: 1. Fish Oil 1,000 mg Oral cap daily 2. flax seed oil 1000 mg daily 3. Calcium + Vitamin D 600 - 400 mg Oral 2 tab daily 4. Lidoderm 5 % Topical ptmd 1 patch once daily 5. albuterol sulfate 2.5 mg /3 mL (0.083 %) Nebulizer nebu 3 times per day PRN 6. Artificial Tears Opht daily 7. ferrous sulfate 325 mg (65 mg iron) Oral cpER daily 8. Synthroid 88 mcg Oral tab 1 tab once daily 9. Aricept 10 mg Oral tab 1 tab once daily 10. tramadol 50 mg Oral tab every 6 hours PRN 11. furosemide 80 mg Oral tab 1 tab once daily 12. metoprolol tartrate 100 mg Oral tab 1 tab 2 times per day 13. Xarelto 15 mg oral tab daily 14. digoxin 125 mcg Oral tab 1 tab daily - PMHx: Hypothyroidism; Sleep Apnea w/o CPAP; Hypercholesterolemia; GERD; Atrial Fib; Dementia; - PSHx: Appendectomy; right carpal tongue; Colonoscopy; left carpal tunnel; Cholecystectomy; Cataract Surgery- Bilateral; - The history from nurses notes was reviewed: and I agree with what is documented. - Social history: Smoking status: Patient states former smoker of tobacco. No barriers to communication noted, The patient speaks fluent Wolof, Speaks appropriately for age. - Family history: Not pertinent. - : The pt / caregiver states he / she is on anticoagulants: Xarelto Home medication list is obtained from [facility] office notes. - Hospitalizations: : No recent hospitalization is reported. - Exposure Risk Screening:: None identified. - Immunization history:: All immunizations up-to-date. - Social history:: the patient is a non-smoker, the patient does not drink alcohol, lives with daughter . ROS: 07:53 All systems are negative except as listed. pc Exam: 07:53 General Appearance: no acute distress, alert. pc 07:53 EENT: normal eye inspection, ears, nose and throat normal, pharynx normal, mucous membranes moist 07:53 Neck: The exam reveals no acute abnormalities. ROM is normal and painless. No nuchal rigidity is noted.. 07:53 Respiratory: no respiratory distress, normal breath sounds, chest non-tender. 07:53 CVS: regular pulse rate, normal S1 and S2, no murmurs, strong peripheral pulses, irregularly irregular 07:53 Abdomen: soft, non-tender, no organomegaly, normal bowel sounds. 07:53 Back: normal inspection. 07:53 : bladder is non-distended, non-tender. 07:53 Skin: skin color is normal, warm, dry. 07:53 Extremities: The extremities have a grossly normal appearance, are non-tender, without acute ROM abnormalities. 07:53 Neuro: cranial nerves normal as tested, no motor deficits, no sensory deficits, not oriented to place, time. 07:53 Psych: normal mood. Vital Signs: 07:18 BP 159 / 70 (auto/); ck1 07:19 BP 159 / 70; Pulse 63; Resp 18; Temp 97.0; Pulse Ox 97% on R/A; Weight 69.54 kg / ck1 153.31 lbs (M); Height 5 ft. 3 in. (160.02 cm); Pain 0/10; 07:21 Pulse 66 MON; Pulse Ox 95% ; ck1 07:45 BP 149 / 82 (auto/); ck1 07:46 Pulse 72 MON; Pulse Ox 96% ; ck1 08:00 BP 130 / 80 (auto/); ck1 08:01 Pulse 76 MON; Pulse Ox 96% ; ck1 08:15 BP 191 / 82 (auto/); ck1 08:16 Pulse 75 MON; Pulse Ox 97% ; ck1 08:30 BP 155 / 78 (auto/); ck1 08:31 Pulse 76 MON; Pulse Ox 100% ; ck1 08:45 BP 154 / 69 (auto/); ck1 08:46 Pulse 79 MON; Pulse Ox 95% ; ck1 09:00 BP 138 / 68 (auto/); ck1 09:00 Pulse 72 MON; Pulse Ox 96% ; ck1 09:15 BP 136 / 62 (auto/); ck1 09:16 Pulse 77 MON; Pulse Ox 98% ; ck1 09:56 BP 160 / 71; Pulse 89; Resp 18; Temp 96.7(O); Pulse Ox 97% on R/A; Pain 0/10; ck1 07:19 Body Mass Index 27.16 (69.54 kg, 160.02 cm) ck1 MDM: 07:17 Movement Assembly Final Inspector/Pulse Ox/q 15 min VS ordered. pc 07:17 Accucheck ordered. pc 07:17 IV Saline Lock ordered. pc 07:17 Rhythm Strip to chart ordered. pc 07:17 CBC with Diff Ordered. EDMS 07:17 Cardiac Injury Profile Ordered. EDMS 07:17 Liver Profile Ordered. EDMS 07:17 MED Profile Ordered. EDMS 07:18 Thyroid Stimulating Hormone Ordered. EDMS 07:18 Troponin Ordered. EDMS 07:18 Digoxin Level Ordered. EDMS 07:18 TSH with Free T4 Ordered. EDMS 07:18 CT Head Without Contrast Ordered. EDMS 07:19 Chest, 1 View Ordered. EDMS 07:19 ECG WITH READING ER PHYS+CARDIAG ordered. EDMS 07:53 Differential Diagnosis: dementia, found wandering without hypothermia and no signs of pc injury. Plan: labs, EKG, CT, CXR. Test interpretation: EKG. 08:15 Urinalysis Ordered. EDMS 08:17 CBC with Diff Reviewed. pc 08:24 Liver Profile Reviewed. pc 08:24 MED Profile Reviewed. pc 08:24 Urinalysis Reviewed. pc 08:24 Troponin Reviewed. pc 08:50 Liver Profile Reviewed. pc 08:50 MED Profile Reviewed. pc 08:50 Cardiac Injury Profile Reviewed. pc 08:50 Troponin Reviewed. pc 08:50 Digoxin Level Reviewed. pc 08:50 TSH with Free T4 Reviewed. pc 08:50 CT Head Without Contrast Reviewed. pc 08:50 Chest, 1 View Reviewed. pc 08:56 Fingerstick Blood Sugar Ordered. EDMS 09:09 Fingerstick Blood Sugar Reviewed. pc 09:12 Data reviewed: old medical records, vital signs, nurses notes, EKG(s), lab test pc results, all radiology studies and available results. Test interpretation: LAB - all labs as ordered have been reviewed, interpreted and considered in the overall management of the clinical presentation; X-RAY - interpreted by me, 1 view chest no acute disease, interpreted by Radiologist and personally reviewed, Head CT; no acute disease. The patient has been re-examined and re-evaluated. The clinical presentation did not require any ED treatment or interventions. ED course: Her daughter is in attendance and is requesting outreach and education social worker involvement re: services, adult day care, etc.. Other consultation: The ED trail maintenance worker was notified and will evaluate the patient. 09:33 [facility] [place] into [employer] and attached to record. 5 09:33 Financial registration complete. jp5 09:40 Disposition: The historical points, examination findings, and any diagnostic results pc supporting the provided diagnosis, were discussed with the patient or legal guardian. The need for outpatient follow up with the provider listed on their discharge instructions was discussed. They were encouraged to return to [facility], or the nearest ED, if symptoms worsen/persist, or for any other questions/concerns. 01/16 11:03 ECG/EKG was scanned into [employer] and attached to record. 11:03 Radiology Report was scanned into [employer] and attached to record. EC/15 07:53 Rate is 71 beats/min. Rhythm is irregularly irregular, A fib. Left axis deviation pc noted. QRS is negative in leads II, aVF. QRS interval is normal. QT interval is normal. Q waves are Present in lead aVL. T waves are Inverted in lead aVL. ST Segment is depressed in leads I, aVL, <1mm. Clinical impression: Nonspecific ST-T changes, Atrial Fibrillation w/o RVR, and LAFB. No change from previous ECG in December,. Point of Care Testing: Blood Glucose: 08:17 Blood Glucose: 90 mg/dL; ck1 Ranges: Signatures: Dispatcher [employer] EDMS Phi Franklin MD MD pc Barnhardt, Gloria, Reg Reg Valentine MendozaRN RN ck1 Veronica Hardy jp5 The chart was reviewed and I authenticate all verbal orders and agree with the evaluation and treatment provided.Corrections: (The following items were deleted from the chart) 07:58 07:42 She was found wandering by a local restaurant in 22 degree weather, wearing only pc a night gown and slippers. The garment presser took her inside and and warmed her up by a fireplace and called police. EMS transported her here. She knows her last name and her . pc Attachments: 09:33 [facility] Payment Agreement jp5 10/10 11:03 ECG/EKG Chart Complete MTDD
--- NOTE | 2016-10-11 10:58 | EDDOCDS ---
Nurse's Notes [facility] Name: Dea Rangel Age: 86 yrs Sex: Female : 1930 Arrival Date: 10/09/2016 Time: 07:08 Bed 2 Private MD: Diagnosis: Unspecified dementia Presentation: 10/09 07:12 Presenting complaint: EMS states: found wandering around outside with pair of slippers ck1 and pajamas on. Patient found approximately 3-4 blocks from home address. Suicide/Homicide risk assessment- the patient denies having any suicidal and/or homicidal ideations and does not present with any other emotional, behavioral or mental health complaints. 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 Transition of care: patient was not received from another setting of care. 07:12 Method Of Arrival: Ambulance ck1 07:29 Adult Sepsis Screening: The patient does not have new or worsening altered mentation. ck1 Patient's respiratory rate is less than 22. Systolic blood pressure is greater than 100. Patient has a qSOFA score of 0- Negative Sepsis Screen. 07:29 Acuity: SAVANAH Level 2 ck1 Triage Assessment: 07:28 General: Appears in no apparent distress, comfortable, Behavior is appropriate for age, ck1 cooperative. Pain: Denies pain. Neurological: Level of Consciousness is awake, confused, Oriented to person. Cardiovascular: Rhythm is sinus bradycardia. Respiratory: Respiratory effort is unlabored, Respiratory pattern is regular, symmetrical. GI: No deficits noted. Derm: Skin is pink, warm & dry. Musculoskeletal: Circulation, motion, and sensation intact Range of motion intact in all extremities. Historical: - Allergies: sulfamethoxazole-trimethoprim; Tylenol; Benadryl; Ceftin; Pravachol; Omeprazole; environmental allergies; - Home Meds: 1. Fish Oil 1,000 mg Oral cap daily 2. flax seed oil 1000 mg daily 3. Calcium + Vitamin D 600 - 400 mg Oral 2 tab daily 4. Lidoderm 5 % Topical ptmd 1 patch once daily 5. albuterol sulfate 2.5 mg /3 mL (0.083 %) Nebulizer nebu 3 times per day PRN 6. Artificial Tears Opht daily 7. ferrous sulfate 325 mg (65 mg iron) Oral cpER daily 8. Synthroid 88 mcg Oral tab 1 tab once daily 9. Aricept 10 mg Oral tab 1 tab once daily 10. tramadol 50 mg Oral tab every 6 hours PRN 11. furosemide 80 mg Oral tab 1 tab once daily 12. metoprolol tartrate 100 mg Oral tab 1 tab 2 times per day 13. Xarelto 15 mg oral tab daily 14. digoxin 125 mcg Oral tab 1 tab daily - PMHx: Hypothyroidism; Sleep Apnea w/o CPAP; Hypercholesterolemia; GERD; Atrial Fib; Dementia; - PSHx: Appendectomy; right carpal tongue; Colonoscopy; left carpal tunnel; Cholecystectomy; Cataract Surgery- Bilateral; - The history from nurses notes was reviewed: and I agree with what is documented. - Social history: Smoking status: Patient states former smoker of tobacco. No barriers to communication noted, The patient speaks fluent Surinamese, Speaks appropriately for age. - Family history: Not pertinent. - : The pt / caregiver states he / she is on anticoagulants: Xarelto Home medication list is obtained from [facility] office notes. - Hospitalizations: : No recent hospitalization is reported. - Exposure Risk Screening:: None identified. - Immunization history:: All immunizations up-to-date. - Social history:: the patient is a non-smoker, the patient does not drink alcohol, lives with daughter . Screenin:20 Screening information is obtained from prior medical records. Fall risk: At risk due to ck1 apparent cognitive impairment, The following interventions are performed due to a positive Fall Risk Screen: Fall Risk is added to Special Handling on the patient Summary Screen. A Fall Risk Bracelet was applied to the patient. Side Rails are placed in the up position. A Call Roche is given with instruction to call for help when getting out of bed. Fall Alert bracelet is placed on the patient. Abuse/DV Screen: The patient / caregiver reports he/she is: not in a situation that causes fear, pain or injury. Nutritional screening: No deficits noted. home support is adequate. 07:37 Assistance ADL's: Requires assistance with meal preparation, this assistance is ck1 provided by family members, medication administration, assistance is provided by family members. Advance Directives: There is an active Power of Cash Accounting Clerk, Rosi Clifton (dtr). Assessment: 07:29 General: see triage note. ck1 08:20 General: Appears in no apparent distress, comfortable, Behavior is appropriate for age, ck1 cooperative. Pain: Denies pain. Neurological: Level of Consciousness is awake, confused, obeys commands, Oriented to person, place, time. Cardiovascular: Chest pain is denied. Respiratory: Respiratory effort is unlabored, Respiratory pattern is regular, symmetrical. GI: No deficits noted. Derm: Skin is intact, Skin is pink, warm & dry. 09:20 Reassessment: Patient appears in no apparent distress at this time. Patient denies pain ck1 at this time. 09:57 General: Appears in no apparent distress, comfortable, Behavior is appropriate for age, ck1 cooperative. Pain: Denies pain. Neurological: Level of Consciousness is awake, confused, obeys commands, Oriented to person. Respiratory: Respiratory effort is unlabored, Respiratory pattern is regular, symmetrical. GI: No deficits noted. Derm: Skin is intact, Skin is pink, warm & dry. Social Work Consult: 09:43 Social Work Note: Met with pt and her daughter and provided information on local ca services ([facility], [facility] daycare program, caregivers, etc). Pt's daughter is comfortable taking pt home and plans to initiate a number of plans to better care for pt in the daughter's home. No further needs at this time. Vital Signs: 07:18 BP 159 / 70 (auto/); ck1 07:19 BP 159 / 70; Pulse 63; Resp 18; Temp 97.0; Pulse Ox 97% on R/A; Weight 69.54 kg (M); ck1 Height 5 ft. 3 in. (160.02 cm); Pain 0/10; 07:21 Pulse 66 MON; Pulse Ox 95% ; ck1 07:45 BP 149 / 82 (auto/); ck1 07:46 Pulse 72 MON; Pulse Ox 96% ; ck1 08:00 BP 130 / 80 (auto/); ck1 08:01 Pulse 76 MON; Pulse Ox 96% ; ck1 08:15 BP 191 / 82 (auto/); ck1 08:16 Pulse 75 MON; Pulse Ox 97% ; ck1 08:30 BP 155 / 78 (auto/); ck1 08:31 Pulse 76 MON; Pulse Ox 100% ; ck1 08:45 BP 154 / 69 (auto/); ck1 08:46 Pulse 79 MON; Pulse Ox 95% ; ck1 09:00 BP 138 / 68 (auto/); ck1 09:00 Pulse 72 MON; Pulse Ox 96% ; ck1 09:15 BP 136 / 62 (auto/); ck1 09:16 Pulse 77 MON; Pulse Ox 98% ; ck1 09:56 BP 160 / 71; Pulse 89; Resp 18; Temp 96.7(O); Pulse Ox 97% on R/A; Pain 0/10; ck1 07:19 Body Mass Index 27.16 (69.54 kg, 160.02 cm) ck1 Vitals: 07:15 Log In Time N/A - ambulance arrival. ck1 ED Course: 07:09 Patient visited by Laura Lawson, Support Architect. deg 07:09 Patient moved to Waiting deg 07:10 Cat Garcia RN is Primary Nurse. deg 07:10 Valentine Ramirez RN is Primary Nurse. deg 07:10 Patient moved to 2 deg 07:14 Phi Franklin MD is Attending Physician. pc 07:27 Patient visited by Phi Franklin MD. pc 07:29 The patient / caregiver is instructed regarding the plan of care and ED course. ck1 07:30 Triage Initiated ck1 07:33 Patient visited by Kerwin Becker. tk 07:33 EKG done. (by ED staff). Reviewed by Phi Franklin MD. tk 07:52 TSH with Free T4 Sent. ck1 07:52 Digoxin Level Sent. ck1 07:52 CBC with Diff Sent. ck1 07:52 Cardiac Injury Profile Sent. ck1 07:52 Liver Profile Sent. ck1 07:52 MED Profile Sent. ck1 07:52 Thyroid Stimulating Hormone Sent. ck1 07:52 Troponin Sent. ck1 07:52 Inserted saline lock: 20 gauge in right hand The patient tolerated the procedure well. ck1 07:53 Patient visited by Valentine Ramirez,THUAN. ck1 08:17 Patient visited by Valentine Ramirez,THUAN. ck1 08:18 Urinalysis Sent. ck1 08:32 CT Head Without Contrast Returned. EDMS 08:33 Chest, 1 View Returned. EDMS 08:51 Patient visited by Valentine Ramirez,THUAN. ck1 09:17 Patient visited by Valentine Ramirez,THUAN. ck1 09:33 [facility] Payment Agreement was scanned into [employer] and attached to record. jp5 09:42 Referral list, As provided by [facility] is Referral Physician. pc 09:42 Miracle Chan FNP is Referral Physician. pc 09:56 Discontinued lock intact, bleeding controlled, pressure dressing applied, No ck1 redness/swelling at site. No procedures done that require assistance. 10/10 11:03 ECG/EKG was scanned into [employer] and attached to record. gb 11:03 Radiology Report was scanned into [employer] and attached to record. gb 13:09 EKG-ADULT Returned. [facility] Point of Care Testing: Blood Glucose: 10/09 08:17 Blood Glucose: 90 mg/dL; ck1 Ranges: Order Results: Lab Order: CBC with Diff; SPEC'M 10/09/16 07:51 Test: WHITE BLOOD COUNT; Value: 8.9; Range: 4.0-10.0; Units: K/mm3; Status: F Test: RED BLOOD COUNT; Value: 4.58; Range: 4.00-5.40; Units: M/mm3; Status: F Test: HEMOGLOBIN; Value: 14.2; Range: 12.0-16.0; Units: g/dl; Status: F Test: HEMATOCRIT; Value: 42.4; Range: 36.0-47.0; Units: %; Status: F Test: MEAN CORPUSCULAR VOLUME; Value: 92.7; Range: 80.0-96.0; Units: fl; Status: F Test: MEAN CORPUSCULAR HEMOGLOBIN; Value: 31.1; Range: 27.0-33.0; Units: pg; Status: F Test: MEAN CORPUSCULAR HGB CONC; Value: 33.6; Range: 32.0-36.5; Units: g/dl; Status: F Test: RED CELL DISTRIBUTION WIDTH; Value: 14.0; Range: 11.5-14.5; Units: %; Status: F Test: PLATELET COUNT, AUTOMATED; Value: 286; Range: 150-450; Units: k/mm3; Status: F Test: NEUTROPHILS %; Value: 70.2; Range: 36.0-66.0; Abnormal: Above high normal; Units: %; Status: F Test: LYMPH %; Value: 11.0; Range: 24.0-44.0; Abnormal: Below low normal; Units: %; Status: F Test: MONO %; Value: 9.2; Range: 0.0-5.0; Abnormal: Above high normal; Units: %; Status: F Test: EOS %; Value: 5.5; Range: 0.0-3.0; Abnormal: Above high normal; Units: %; Status: F Test: BASO %; Value: 1.7; Range: 0.0-1.0; Abnormal: Above high normal; Units: %; Status: F Test: LARGE UNSTAINED CELL %; Value: 2.3; Range: 0.0-4.0; Units: %; Status: F Test: NEUTROPHILS #; Value: 6.3; Range: 1.8-7.7; Units: K/mm3; Status: F Test: LYMPH #; Value: 1.2; Range: 1.5-4.5; Abnormal: Below low normal; Units: K/mm3; Status: F Test: MONO #; Value: 0.8; Range: 0.0-0.8; Units: K/mm3; Status: F Test: EOS #; Value: 0.5; Range: 0.0-0.50; Units: K/mm3; Status: F Test: BASO #; Value: 0.2; Range: 0.0-0.2; Units: K/mm3; Status: F Test: LARGE UNSTAINED CELL #; Value: 0.2; Range: 0.0-0.4; Units: K/mm3; Status: F Lab Order: Cardiac Injury Profile; SPEC'M 10/09/16 07:51 Test: CPK CREATINE PHOSPHOKINASE; Value: 63; Range: 26-192; Units: U/L; Status: F Test: CK-MB VALUE MASS; Value: 1.3; Range: 0.0-3.6; Units: NG/ML; Status: F Test: MB/CK RELATIVE INDEX; Value: 2.06; Range: < OR =4; Status: F Test Note: ; DIAGNOSIS CRITERIA MMB ng/ml Relative Index (RI) NON-AMI < or = 5 N/A POSEY ZONE > 5 < or = 4 AMI > 5 > 4 Lab Order: Liver Profile; SPEC'M 10/09/16 07:51 Test: AST/SGOT; Value: 23; Range: 15-37; Units: U/L; Status: F Test: ALT/SGPT; Value: 28; Range: 12-78; Units: U/L; Status: F Test: ALKALINE PHOSPHATASE; Value: 92; Range: 45-117; Units: U/L; Status: F Test: BILIRUBIN,TOTAL; Value: 1.2; Range: 0.2-1.0; Abnormal: Above high normal; Units: MG/DL; Status: F Test: BILIRUBIN,DIRECT; Value: 0.3; Range: 0.0-0.2; Abnormal: Above high normal; Units: MG/DL; Status: F Test: TOTAL PROTEIN; Value: 7.9; Range: 6.4-8.2; Units: GM/DL; Status: F Test: ALBUMIN; Value: 3.9; Range: 3.2-5.2; Units: GM/DL; Status: F Test: ALBUMIN/GLOBULIN RATIO; Value: 0.98; Range: 1.00-1.93; Abnormal: Below low normal; Status: F Lab Order: MED Profile; [facility] 10/09/16 07:51 Test: GLUCOSE, FASTING; Value: 97; Range: 83-110; Units: MG/DL; Status: F Test: BLOOD UREA NITROGEN; Value: 19; Range: 7-18; Abnormal: Above high normal; Units: MG/DL; Status: F Test: CREATININE FOR GFR; Value: 1.14; Range: 0.55-1.02; Abnormal: Above high normal; Units: MG/DL; Status: F Test: GLOMERULAR FILTRATION RATE; Value: 48.2; Range: >32; Status: F Test: SODIUM LEVEL; Value: 142; Range: 136-145; Units: MEQ/L; Status: F Test: POTASSIUM SERUM; Value: 3.5; Range: 3.5-5.1; Units: MEQ/L; Status: F Test: CHLORIDE LEVEL; Value: 101; Range: 98-107; Units: MEQ/L; Status: F Test: CARBON DIOXIDE LEVEL; Value: 33; Range: 21-32; Abnormal: Above high normal; Units: MEQ/L; Status: F Test: ANION GAP; Value: 8; Range: 8-16; Units: MEQ/L; Status: F Test: CALCIUM LEVEL; Value: 9.2; Range: 8.8-10.2; Units: MG/DL; Status: F Test Note: ; Units are mL/min/1.73 m2 Chronic Kidney Disease Staging per NKF: Stage I & II GFR >=60 Normal to Mildly Decreased Stage III GFR 30-59 Moderately Decreased Stage IV GFR 15-29 Severely Decreased Stage V GFR <15 Very Little GFR Left ESRD GFR <15 on TITLE CURATIVE SPECIALIST Lab Order: Troponin; [facility] 10/09/16 07:51 Test: TROPONIN I; Value: < 0.02; Range: < 0.10; Units: NG/ML; Status: F Test Note: ; Troponin I Reference Interval for [employer] LOCI: 99th Percentile= 0.00-0.045 ng/ml Risk Stratification: <= 0.10 ng/ml Decreased Risk for Adverse Clinical Events. 0.10-1.50 ng/ml Increased Risk for Adverse Clinical Events. Evaluation of additional criterion and/or repeat testing in 2-6 hours is suggested to rule out myocardial damage. >= 1.50 ng/ml Indicative of Myocardial Injury. Lab Order: Digoxin Level; [facility] 10/09/16 07:51 Test: DIGOXIN LEVEL; Value: 0.9; Range: 0.5-2.0; Units: NG/ML; Status: F Lab Order: TSH with Free T4; [facility] 10/09/16 07:51 Test: THYROID STIMULATING HORMONE; Value: 1.260; Range: 0.358-3.740; Units: uIU/ML; Status: F Test: FREE T4; Value: 1.41; Range: 0.76-1.46; Units: NG/DL; Status: F Lab Order: Urinalysis; [facility] 10/09/16 08:14 Test: APPEARANCE, URINE; Value: CLEAR; Range: CLEAR; Status: F Test: COLOR, URINE; Value: STRAW; Range: YELLOW; Status: F Test: PH,URINE; Value: 7.0; Range: 5.0-9.0; Units: UNITS; Status: F Test: SPECIFIC GRAVITY URINE AUTO; Value: 1.005; Range: 1.002-1.035; Status: F Test: PROTEIN, URINE AUTO; Value: NEGATIVE; Range: NEGATIVE; Units: mg/dL; Status: F Test: GLUCOSE, URINE (UA) AUTO; Value: NEGATIVE; Range: NEGATIVE; Units: mg/dL; Status: F Test: KETONE, URINE AUTO; Value: NEGATIVE; Range: NEGATIVE; Units: mg/dL; Status: F Test: UROBILINOGEN, URINE AUTO; Value: 0.2; Range: 0.0-2.0; Units: mg/dL; Status: F Test: BILIRUBIN, URINE AUTO; Value: NEGATIVE; Range: NEGATIVE; Status: F Test: NITRITE, URINE AUTO; Value: NEGATIVE; Range: NEGATIVE; Status: F Test: LEUKOCYTE ESTERASE, URINE AUTO; Value: TRACE; Range: NEGATIVE; Abnormal: Above high normal; Status: F Test: BLOOD, URINE BLOOD; Value: NEGATIVE; Range: NEGATIVE; Status: F Test: WBC, URINE AUTO; Value: 2; Range: 0-3; Units: /HPF; Status: F Test: RBC, URINE AUTO; Value: 2; Range: 0-3; Units: /HPF; Status: F Test: BACTERIA, URINE AUTO; Value: NEGATIVE; Range: NEGATIVE; Status: F Test: SQUAMOUS EPITHELIAL CELL UR AU; Value: 0; Range: 0-6; Units: /HPF; Status: F Test: HYALINE CAST, URINE AUTO; Value: 0; Range: 0-1; Units: /LPF; Status: F Lab Order: Fingerstick Blood Sugar; SPEC'M 10/09/16 08:16 Test: BEDSIDE GLUCOSE; Value: 94; Range: 83-110; Units: MG/DL; Status: F Radiology Order: CT Head Without Contrast Test: CT Head Without Contrast REASON FOR EXAMINATION: AMS; ; CLINICAL HISTORY: AMS.; TECHNIQUE: Multiple axial CT images were obtained through the brain without IV contrast material.; COMMENTS: Compared to 08/22/13 study.; There is normal configuration of sella turcica. There are no intra or extra-axial collections. There; is no mass effect or midline shift. There is no evidence of hematoma formation. No hydrocephalus is p; resent. The ventricles are symmetrical. 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 Severe cerebellar and cerebral atrophy.; 2. Severe chronic microvascular disease.; 3. 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 No evidence of acute intracranial pathology. No interval change.; Thank you for your kind referral of this patient.; ; ; Radiology Order: Chest, 1 View Test: Chest, 1 View REASON FOR EXAMINATION: Afib; Clinical: Atrial fibrillation and chest pain .; ; Comparison: 01/02/2016 .; ; Technique: PA.; ; Findings:; The mediastinum and cardiac silhouette are normal. The lung sheffield demonstrate; chronic stable changes and without acute consolidation, effusion, or; pneumothorax. The skeletal structures are intact and normal.; ; Impression:; 1. No acute cardiopulmonary process.; ; ; Signed by; Myles Syed MD 10/09/2016 08:20 A; Radiology Order: EKG-ADULT Test: EKG-ADULT REASON FOR EXAMINATION: AFib; Stationary ECG Study; [facility] - ED; ; Test Date: 2016-10-09; Pat Name: DEA RANGEL Department:; Room: -; Gender: F Poultry Trimmer: tk; : 1930 Requested By: Phi River; Order Number: [id number] Emmanuel MD: Latia Pereira; Measurements; Intervals [place]; Rate: 71 P:; MS: 0 QRS: -58; QRSD: 94 T: 72; QT: 419; QTc: 456; Interpretive Statements; ATRIAL FIBRILLATION; LEFT ANTERIOR FASCICULAR BLOCK; MODERATE VOLTAGE CRITERIA FOR LVH, CONSIDER NORMAL VARIANT; POSSIBLE ANTERIOR MYOCARDIAL INFARCTION, OF INDETERMINATE AGE; DECREASED RATE 01/02/16; Electronically Signed On 10-10-2016 12:48:02 EST by Latia Pereira; Outcome: 07:35 CT Study completed. ck1 09:42 Discharge ordered by Provider. pc 09:56 Discharge Assessment: Patient awake, alert and oriented x 3. No cognitive and/or ck1 functional deficits noted. Patient verbalized understanding of disposition instructions. patient administered narcotics - no. The following High Risk Discharge criteria are identified: None. Discharged to home via wheelchair, with family. Condition: stable. Discharge instructions given to patient, Instructed on discharge instructions, follow up and referral plans. medication usage, Demonstrated understanding of instructions, medications, Pt was receptive of discharge instructions/ teaching. Property :Personal belongings accompany Pt. 09:57 Patient left the ED. ck1 Signatures: Dispatcher [employer] EDMS Phi Franklin MD MD pc Murray, Denise, Support Architect Unit deg Gris Licona, PSA PSA ca Nickie Sandoval, Reg Reg Vaelntine MendozaRN RN ck1 Veronica Hardy jp5 Kerwin Becker Corrections: (The following items were deleted from the chart) 07:31 07:29 Acuity: SAVANAH Level 3 ck1 ck1 09:21 08:20 Neurological: Level of Consciousness is awake, alert, obeys commands, Oriented to ck1 person, place, time, ck1 Chart Complete MTDD
== END 2016-10-09 09:57 | disposition home or self-care (01) ==
LOC: M ED 07:08
DX: F03.90 Unspecified dementia, unspecified severity, without behavioral disturbance, psychotic disturbance, mood disturbance, and anxiety (principal); E03.9 Hypothyroidism, unspecified; G47.30 Sleep apnea, unspecified; E78.00 Pure hypercholesterolemia, unspecified; K21.9 Gastro-esophageal reflux disease without esophagitis; I48.91 Unspecified atrial fibrillation; Z79.899 Other long term (current) drug therapy; Z79.52 Long term (current) use of systemic steroids; J30.89 Other allergic rhinitis; Z88.1 Allergy status to other antibiotic agents; Z88.2 Allergy status to sulfonamides; Z88.6 Allergy status to analgesic agent; Z88.8 Allergy status to other drugs, medicaments and biological substances

== ENCOUNTER 2016-11-12 18:38 | Emergency (ER) | payer MEDICARE, MEDICAID ==
[2016-11-12] MEDS ORDERED: ACETAMINOPHEN 325 MG TAB As Ordered ONE (23:09)
[2016-11-12] MEDS ORDERED: traMADol 50 MG TAB As Ordered ONE (23:09)
--- NOTE | 2016-11-12 23:41 | EDDOCDS ---
Physician Documentation [facility] Name: Yashira Rangel Age: 86 yrs Sex: Female : 1930 Arrival Date: 11/12/2016 Time: 18:38 Bed TR7 Private MD: Miracle Chan M. Disposition: 11/12/16 23:24 Discharged to Home/Self Care. Impression: Sciatica, left side, Muscle spasm of back. - Condition is Stable. - Discharge Instructions: Back Pain, Adult, Sciatica, Heat Therapy. - Medication Reconciliation, Local Pharmacy Hours form. - Follow up: Miracle Chan; When: 4 - 5 days; Reason: Recheck today's complaints, Continuance of care. Follow up: Emergency Department; When: As needed; Reason: Worsening of conditions. - Problem is new. - Symptoms have improved. - Notes: recommend using tylenol with tramadol as needed. use heat for muscle spasm. follow up with physician for recheck and possible referral for physical therapy services. Historical: - Allergies: SULFA (SULFONAMIDES) (Unknown); - Home Meds: 1. ferrous sulfate 325 mg (65 mg iron) Oral cpER twice a day (Last dose: 11/12/2016 18:00) 2. Aricept 10 mg Oral tab 1 tab once daily (Last dose: 11/12/2016 18:00) 3. digoxin 125 mcg Oral tab 1 tab daily (Last dose: 11/12/2016 09:00) 4. albuterol sulfate 2.5 mg /3 mL (0.083 %) Inhl nebu 3 times per day PRN (Last dose: Unknown) 5. Calcium + Vitamin D 600 - 400 mg Oral 2 tab daily (Last dose: 11/12/2016 09:00) 6. Artificial Tears Opht as needed (Last dose: Unknown) 7. Fish Oil 1,000 mg Oral cap daily (Last dose: 11/12/2016 09:00) 8. flax seed oil 1000 mg daily (Last dose: 11/12/2016 09:00) 9. furosemide 80 mg Oral tab 1 tab once daily (Last dose: 11/12/2016 09:00) 10. metoprolol tartrate 100 mg Oral tab 1 tab 2 times per day (Last dose: 11/12/2016 18:00) 11. Synthroid 88 mcg Oral tab 1 tab once daily (Last dose: 11/12/2016 09:00) 12. tramadol 50 mg Oral tab every 6 hours PRN (Last dose: 11/12/2016 18:00) 13. Xarelto 15 mg oral tab daily (Last dose: 11/12/2016 18:00) 14. Lidoderm 5 % Topical ptmd 1 patch once daily (Last dose: Unknown) 15. Zoloft Unknown Oral Unknown once daily (Last dose: 11/12/2016 09:00) - PMHx: Atrial Fib; Dementia; GERD; Sleep Apnea w/o CPAP; Hypothyroidism; Hypercholesterolemia; Depression; - PSHx: Appendectomy; Colonoscopy; Carpal Tunnel Repair- Left; Cataract Surgery- Bilateral; Cholecystectomy; Carpal Tunnel Repair- Right; - Social history: No barriers to communication noted, The patient speaks fluent Tajik, Speaks appropriately for age, Smoking status: Patient states former smoker of tobacco. - Family history: Not pertinent. - : The pt / caregiver states he / she is on anticoagulants: Xarelto Home medication list is obtained from the patient. - Exposure Risk Screening:: None identified. Vital Signs: 11/12 18:40 BP 155 / 68; Pulse 61; Resp 16; Temp 97.1(T); Pulse Ox 97% on R/A; Weight 69.4 kg / 153 lr2 lbs (R); Height 4 ft. 8 in. (142.24 cm); Pain 7/10; 23:37 BP 132 / 92; Pulse 59; Resp 16; Pulse Ox 96% on R/A; cz 18:40 Body Mass Index 34.30 (69.40 kg, 142.24 cm) lr2 MDM: 21:31 [facility] Payment Agreement was scanned into [employer] and attached to record. gb 21:57 Financial registration complete. gb 23:07 traMADol 50 mg PO once ordered. ar2 23:07 Acetaminophen Tablet 650 mg PO once ordered. ar2 Administered Medications: 23:16 Drug: traMADol 50 mg [tramadol 50 mg tablet (1 tabs)] Route: PO; cz 23:16 Drug: Acetaminophen 650 mg [acetaminophen 325 mg tablet (2 tabs)] Route: PO; cz Signatures: Jose A Moss RN RN cz Nickie Sandoval, Moustapha Reg gb Russel Cruz PA-C PA-C ar2 Bonita Ashby,RN RN dsf The chart was reviewed and I authenticate all verbal orders and agree with the evaluation and treatment provided.Attachments: 21:31 [facility] Payment Agreement gb MTDD
--- NOTE | 2016-11-12 23:41 | EDDOCDS ---
Nurse's Notes [facility] Name: Yashira Rangel Age: 86 yrs Sex: Female : 1930 Arrival Date: 11/12/2016 Time: 18:38 Bed TR7 Private MD: Miracle Chan M. Diagnosis: Sciatica, left side;Muscle spasm of back Presentation: 11/12 18:45 Presenting complaint: Patient states: left hip pain that started today worse the past dsf hour. pt denies falling. Adult Sepsis Screening: The patient does not have new or worsening altered mentation. Patient's respiratory rate is less than 22. Systolic blood pressure is greater than 100. Patient has a qSOFA score of 0- Negative Sepsis Screen. Suicide/Homicide risk assessment- the patient denies having any suicidal and/or homicidal ideations and does not present with any other emotional, behavioral or mental health complaints. Status: Patient is not a rn women services or dependent. Transition of care: patient was not received from another setting of care. 18:45 Acuity: SAVANAH Level 4 dsf 18:45 Method Of Arrival: Wheelchair dsf Triage Assessment: 18:51 General: Appears in no apparent distress, Behavior is appropriate for age, cooperative. dsf Pain: Location: left hip Pain currently is 10 out of 10 on a pain scale. Quality of pain is described as sharp. Musculoskeletal: Reports pain in left hip. Historical: - Allergies: SULFA (SULFONAMIDES) (Unknown); - Home Meds: 1. ferrous sulfate 325 mg (65 mg iron) Oral cpER twice a day (Last dose: 11/12/2016 18:00) 2. Aricept 10 mg Oral tab 1 tab once daily (Last dose: 11/12/2016 18:00) 3. digoxin 125 mcg Oral tab 1 tab daily (Last dose: 11/12/2016 09:00) 4. albuterol sulfate 2.5 mg /3 mL (0.083 %) Inhl nebu 3 times per day PRN (Last dose: Unknown) 5. Calcium + Vitamin D 600 - 400 mg Oral 2 tab daily (Last dose: 11/12/2016 09:00) 6. Artificial Tears Opht as needed (Last dose: Unknown) 7. Fish Oil 1,000 mg Oral cap daily (Last dose: 11/12/2016 09:00) 8. flax seed oil 1000 mg daily (Last dose: 11/12/2016 09:00) 9. furosemide 80 mg Oral tab 1 tab once daily (Last dose: 11/12/2016 09:00) 10. metoprolol tartrate 100 mg Oral tab 1 tab 2 times per day (Last dose: 11/12/2016 18:00) 11. Synthroid 88 mcg Oral tab 1 tab once daily (Last dose: 11/12/2016 09:00) 12. tramadol 50 mg Oral tab every 6 hours PRN (Last dose: 11/12/2016 18:00) 13. Xarelto 15 mg oral tab daily (Last dose: 11/12/2016 18:00) 14. Lidoderm 5 % Topical ptmd 1 patch once daily (Last dose: Unknown) 15. Zoloft Unknown Oral Unknown once daily (Last dose: 11/12/2016 09:00) - PMHx: Atrial Fib; Dementia; GERD; Sleep Apnea w/o CPAP; Hypothyroidism; Hypercholesterolemia; Depression; - PSHx: Appendectomy; Colonoscopy; Carpal Tunnel Repair- Left; Cataract Surgery- Bilateral; Cholecystectomy; Carpal Tunnel Repair- Right; - Social history: No barriers to communication noted, The patient speaks fluent Guatemalan, Speaks appropriately for age, Smoking status: Patient states former smoker of tobacco. - Family history: Not pertinent. - : The pt / caregiver states he / she is on anticoagulants: Xarelto Home medication list is obtained from the patient. - Exposure Risk Screening:: None identified. Screenin:39 Screening information is obtained from the patient. Fall risk: No risks identified. cz Assistance ADL's: requires no assistance with activities of daily living. Abuse/DV Screen: The patient / caregiver reports he/she is: not in a situation that causes fear, pain or injury. Nutritional screening: No deficits noted. home support is adequate. Assessment: 23:39 General: alert female with left hip pain increased after doing P.T. at home. cz Vital Signs: 18:40 BP 155 / 68; Pulse 61; Resp 16; Temp 97.1(T); Pulse Ox 97% on R/A; Weight 69.4 kg (R); lr2 Height 4 ft. 8 in. (142.24 cm); Pain 7/10; 23:37 BP 132 / 92; Pulse 59; Resp 16; Pulse Ox 96% on R/A; cz 18:40 Body Mass Index 34.30 (69.40 kg, 142.24 cm) lr2 Vitals: 18:40 Log In Time: November 12, 2016 at 18:38. lr2 ED Course: 18:39 Patient visited by Maria Elena Mims. lr2 18:39 Patient moved to Waiting lr2 18:40 Miracle Chan is Private Physician. lr2 18:41 Patient moved to Pre RCE lr2 18:47 Triage Initiated dsf 20:43 Patient moved to Triage 3 cz 21:31 [facility] Payment Agreement was scanned into [employer] and attached to record. gb 21:53 Lorena Pro PA-C is PHCP. dt4 21:53 Lucas Saab DO is Attending Physician. dt4 21:53 Patient visited by Lorena Pro PA-C. dt4 22:40 PHCP role handed off by Lorena Pro PA-C ar2 22:40 Russel Cruz PA-C is PHCP. ar2 23:23 Miracle Chan is Referral Physician. ar2 23:37 Patient moved to TR7 cz 23:39 The patient / caregiver is instructed regarding the plan of care and ED course. cz 23:39 No IV's were initiated during this patient's visit. No procedures done that require cz assistance. Administered Medications: 23:16 Drug: traMADol 50 mg [tramadol 50 mg tablet (1 tabs)] Route: PO; cz 23:16 Drug: Acetaminophen 650 mg [acetaminophen 325 mg tablet (2 tabs)] Route: PO; cz Order Results: There are currently no results for this order. Outcome: 23:24 Discharge ordered by Provider. ar2 23:39 Discharge Assessment: Patient awake, alert and oriented x 3. No cognitive and/or cz functional deficits noted. Patient verbalized understanding of disposition instructions. patient administered narcotics - no. The following High Risk Discharge criteria are identified: None. Discharged to home via wheelchair, with family. Condition: stable. Discharge instructions given to patient, Instructed on discharge instructions, follow up and referral plans. Demonstrated understanding of instructions, Pt was receptive of discharge instructions/ teaching. No special radiology studies were completed. Property :Personal belongings accompany Pt. 23:40 Patient left the ED. cz Signatures: Jose A Moss RN RN cz Nickie Sandoval, Reg Reg gb Russel Cruz, PAKaylieC PAKaylieC ar2 Bonita Ashby RN RN dsf Tschudi, Diane, KANIKA PACarmen dt4 Maria Elena Mims lr2 MTDD
--- NOTE | 2016-11-15 00:42 | EDDOCDS ---
Physician Documentation [facility] Name: Yashira Rangel Age: 86 yrs Sex: Female : 1930 Arrival Date: 11/12/2016 Time: 18:38 Bed TR7 Private MD: Miracle Chan M. Disposition: 11/12/16 23:24 Discharged to Home/Self Care. Impression: Sciatica, left side, Muscle spasm of back. - Condition is Stable. - Discharge Instructions: Back Pain, Adult, Sciatica, Heat Therapy. - Medication Reconciliation, Local Pharmacy Hours form. - Follow up: Miracle Chan; When: 4 - 5 days; Reason: Recheck today's complaints, Continuance of care. Follow up: Emergency Department; When: As needed; Reason: Worsening of conditions. - Problem is new. - Symptoms have improved. - Notes: recommend using tylenol with tramadol as needed. use heat for muscle spasm. follow up with physician for recheck and possible referral for physical therapy services. Historical: - Allergies: SULFA (SULFONAMIDES) (Unknown); - Home Meds: 1. ferrous sulfate 325 mg (65 mg iron) Oral cpER twice a day (Last dose: 11/12/2016 18:00) 2. Aricept 10 mg Oral tab 1 tab once daily (Last dose: 11/12/2016 18:00) 3. digoxin 125 mcg Oral tab 1 tab daily (Last dose: 11/12/2016 09:00) 4. albuterol sulfate 2.5 mg /3 mL (0.083 %) Inhl nebu 3 times per day PRN (Last dose: Unknown) 5. Calcium + Vitamin D 600 - 400 mg Oral 2 tab daily (Last dose: 11/12/2016 09:00) 6. Artificial Tears Opht as needed (Last dose: Unknown) 7. Fish Oil 1,000 mg Oral cap daily (Last dose: 11/12/2016 09:00) 8. flax seed oil 1000 mg daily (Last dose: 11/12/2016 09:00) 9. furosemide 80 mg Oral tab 1 tab once daily (Last dose: 11/12/2016 09:00) 10. metoprolol tartrate 100 mg Oral tab 1 tab 2 times per day (Last dose: 11/12/2016 18:00) 11. Synthroid 88 mcg Oral tab 1 tab once daily (Last dose: 11/12/2016 09:00) 12. tramadol 50 mg Oral tab every 6 hours PRN (Last dose: 11/12/2016 18:00) 13. Xarelto 15 mg oral tab daily (Last dose: 11/12/2016 18:00) 14. Lidoderm 5 % Topical ptmd 1 patch once daily (Last dose: Unknown) 15. Zoloft Unknown Oral Unknown once daily (Last dose: 11/12/2016 09:00) - PMHx: Atrial Fib; Dementia; GERD; Sleep Apnea w/o CPAP; Hypothyroidism; Hypercholesterolemia; Depression; - PSHx: Appendectomy; Colonoscopy; Carpal Tunnel Repair- Left; Cataract Surgery- Bilateral; Cholecystectomy; Carpal Tunnel Repair- Right; - Social history: No barriers to communication noted, The patient speaks fluent Czech, Speaks appropriately for age, Smoking status: Patient states former smoker of tobacco. - Family history: Not pertinent. - : The pt / caregiver states he / she is on anticoagulants: Xarelto Home medication list is obtained from the patient. - Exposure Risk Screening:: None identified. Vital Signs: 11/12 18:40 BP 155 / 68; Pulse 61; Resp 16; Temp 97.1(T); Pulse Ox 97% on R/A; Weight 69.4 kg / 153 lr2 lbs (R); Height 4 ft. 8 in. (142.24 cm); Pain 7/10; 23:37 BP 132 / 92; Pulse 59; Resp 16; Pulse Ox 96% on R/A; cz 18:40 Body Mass Index 34.30 (69.40 kg, 142.24 cm) lr2 MDM: 21:31 [facility] Payment Agreement was scanned into [employer] and attached to record. gb 21:57 Financial registration complete. gb 23:07 traMADol 50 mg PO once ordered. ar2 23:07 Acetaminophen Tablet 650 mg PO once ordered. ar2 11/13 12:11 T-Sheet-- Draft Copy was scanned into [employer] and attached to record. lg Administered Medications: 11/12 23:16 Drug: traMADol 50 mg [tramadol 50 mg tablet (1 tabs)] Route: PO; cz 23:16 Drug: Acetaminophen 650 mg [acetaminophen 325 mg tablet (2 tabs)] Route: PO; cz Signatures: Jose A Moss RN RN cz Nickie Sandoval, Reg Reg gb Mercy Donahue, Reg Reg lg Russel Cruz, KANIKA BOUDREAUX ar2 Bonita Ashby RN RN arlphf The chart was reviewed and I authenticate all verbal orders and agree with the evaluation and treatment provided.Attachments: 21:31 [facility] Payment Agreement gb 11/13 12:11 T-Sheet-- Draft Copy lg Chart Complete MTDD
--- NOTE | 2016-11-15 00:42 | EDDOCDS ---
Nurse's Notes [facility] Name: Yashira Rangel Age: 86 yrs Sex: Female : 1930 Arrival Date: 11/12/2016 Time: 18:38 Bed TR7 Private MD: Miracle Chan M. Diagnosis: Sciatica, left side;Muscle spasm of back Presentation: 11/12 18:45 Presenting complaint: Patient states: left hip pain that started today worse the past dsf hour. pt denies falling. Adult Sepsis Screening: The patient does not have new or worsening altered mentation. Patient's respiratory rate is less than 22. Systolic blood pressure is greater than 100. Patient has a qSOFA score of 0- Negative Sepsis Screen. Suicide/Homicide risk assessment- the patient denies having any suicidal and/or homicidal ideations and does not present with any other emotional, behavioral or mental health complaints. Status: Patient is not a answering service operator or dependent. Transition of care: patient was not received from another setting of care. 18:45 Acuity: SAVANAH Level 4 dsf 18:45 Method Of Arrival: Wheelchair dsf Triage Assessment: 18:51 General: Appears in no apparent distress, Behavior is appropriate for age, cooperative. dsf Pain: Location: left hip Pain currently is 10 out of 10 on a pain scale. Quality of pain is described as sharp. Musculoskeletal: Reports pain in left hip. Historical: - Allergies: SULFA (SULFONAMIDES) (Unknown); - Home Meds: 1. ferrous sulfate 325 mg (65 mg iron) Oral cpER twice a day (Last dose: 11/12/2016 18:00) 2. Aricept 10 mg Oral tab 1 tab once daily (Last dose: 11/12/2016 18:00) 3. digoxin 125 mcg Oral tab 1 tab daily (Last dose: 11/12/2016 09:00) 4. albuterol sulfate 2.5 mg /3 mL (0.083 %) Inhl nebu 3 times per day PRN (Last dose: Unknown) 5. Calcium + Vitamin D 600 - 400 mg Oral 2 tab daily (Last dose: 11/12/2016 09:00) 6. Artificial Tears Opht as needed (Last dose: Unknown) 7. Fish Oil 1,000 mg Oral cap daily (Last dose: 11/12/2016 09:00) 8. flax seed oil 1000 mg daily (Last dose: 11/12/2016 09:00) 9. furosemide 80 mg Oral tab 1 tab once daily (Last dose: 11/12/2016 09:00) 10. metoprolol tartrate 100 mg Oral tab 1 tab 2 times per day (Last dose: 11/12/2016 18:00) 11. Synthroid 88 mcg Oral tab 1 tab once daily (Last dose: 11/12/2016 09:00) 12. tramadol 50 mg Oral tab every 6 hours PRN (Last dose: 11/12/2016 18:00) 13. Xarelto 15 mg oral tab daily (Last dose: 11/12/2016 18:00) 14. Lidoderm 5 % Topical ptmd 1 patch once daily (Last dose: Unknown) 15. Zoloft Unknown Oral Unknown once daily (Last dose: 11/12/2016 09:00) - PMHx: Atrial Fib; Dementia; GERD; Sleep Apnea w/o CPAP; Hypothyroidism; Hypercholesterolemia; Depression; - PSHx: Appendectomy; Colonoscopy; Carpal Tunnel Repair- Left; Cataract Surgery- Bilateral; Cholecystectomy; Carpal Tunnel Repair- Right; - Social history: No barriers to communication noted, The patient speaks fluent Greenlandic, Speaks appropriately for age, Smoking status: Patient states former smoker of tobacco. - Family history: Not pertinent. - : The pt / caregiver states he / she is on anticoagulants: Xarelto Home medication list is obtained from the patient. - Exposure Risk Screening:: None identified. Screenin:39 Screening information is obtained from the patient. Fall risk: No risks identified. cz Assistance ADL's: requires no assistance with activities of daily living. Abuse/DV Screen: The patient / caregiver reports he/she is: not in a situation that causes fear, pain or injury. Nutritional screening: No deficits noted. home support is adequate. Assessment: 23:39 General: alert female with left hip pain increased after doing P.T. at home. cz Vital Signs: 18:40 BP 155 / 68; Pulse 61; Resp 16; Temp 97.1(T); Pulse Ox 97% on R/A; Weight 69.4 kg (R); lr2 Height 4 ft. 8 in. (142.24 cm); Pain 7/10; 23:37 BP 132 / 92; Pulse 59; Resp 16; Pulse Ox 96% on R/A; cz 18:40 Body Mass Index 34.30 (69.40 kg, 142.24 cm) lr2 Vitals: 18:40 Log In Time: November 12, 2016 at 18:38. lr2 ED Course: 18:39 Patient visited by Maria Elena Mims. lr2 18:39 Patient moved to Waiting lr2 18:40 Miracle Chan is Private Physician. lr2 18:41 Patient moved to Pre RCE lr2 18:47 Triage Initiated dsf 20:43 Patient moved to Triage 3 cz 21:31 [facility] Payment Agreement was scanned into [employer] and attached to record. gb 21:53 Lorena Pro PA-C is PHCP. dt4 21:53 Lucas Saab DO is Attending Physician. dt4 21:53 Patient visited by Lorena Pro PA-C. dt4 22:40 PHCP role handed off by Lorena Pro PA-C ar2 22:40 Russel Cruz PA-C is PHCP. ar2 23:23 Miracle Chan is Referral Physician. ar2 23:37 Patient moved to TR7 cz 23:39 The patient / caregiver is instructed regarding the plan of care and ED course. cz 23:39 No IV's were initiated during this patient's visit. No procedures done that require cz assistance. 11/13 12:11 T-Sheet-- Draft Copy was scanned into [employer] and attached to record. lg Administered Medications: 11/12 23:16 Drug: traMADol 50 mg [tramadol 50 mg tablet (1 tabs)] Route: PO; cz 23:16 Drug: Acetaminophen 650 mg [acetaminophen 325 mg tablet (2 tabs)] Route: PO; cz Order Results: There are currently no results for this order. Outcome: 23:24 Discharge ordered by Provider. ar2 23:39 Discharge Assessment: Patient awake, alert and oriented x 3. No cognitive and/or cz functional deficits noted. Patient verbalized understanding of disposition instructions. patient administered narcotics - no. The following High Risk Discharge criteria are identified: None. Discharged to home via wheelchair, with family. Condition: stable. Discharge instructions given to patient, Instructed on discharge instructions, follow up and referral plans. Demonstrated understanding of instructions, Pt was receptive of discharge instructions/ teaching. No special radiology studies were completed. Property :Personal belongings accompany Pt. 23:40 Patient left the ED. cz Signatures: Jose A Moss, THUAN RN Nickie Cooper, Reg Reg gb Mercy Donahue, Reg Reg lg Russel Cruz, KANIKA BOUDREAUX ar2 Bonita Ashby RN RN dsf Tschudi, Diane, PA-C PA-C dt4 Maria Elena Mims lr2 Chart Complete MTDD
--- NOTE | 2016-11-15 00:42 | EDDOCDS ---
Physician Documentation [facility] Name: Yashira Rangel Age: 86 yrs Sex: Female : 1930 Arrival Date: 11/12/2016 Time: 18:38 Bed TR7 Private MD: Miracle Chan M. Disposition: 11/12/16 23:24 Discharged to Home/Self Care. Impression: Sciatica, left side, Muscle spasm of back. - Condition is Stable. - Discharge Instructions: Back Pain, Adult, Sciatica, Heat Therapy. - Medication Reconciliation, Local Pharmacy Hours form. - Follow up: Miracle Chan; When: 4 - 5 days; Reason: Recheck today's complaints, Continuance of care. Follow up: Emergency Department; When: As needed; Reason: Worsening of conditions. - Problem is new. - Symptoms have improved. - Notes: recommend using tylenol with tramadol as needed. use heat for muscle spasm. follow up with physician for recheck and possible referral for physical therapy services. Historical: - Allergies: SULFA (SULFONAMIDES) (Unknown); - Home Meds: 1. ferrous sulfate 325 mg (65 mg iron) Oral cpER twice a day (Last dose: 11/12/2016 18:00) 2. Aricept 10 mg Oral tab 1 tab once daily (Last dose: 11/12/2016 18:00) 3. digoxin 125 mcg Oral tab 1 tab daily (Last dose: 11/12/2016 09:00) 4. albuterol sulfate 2.5 mg /3 mL (0.083 %) Inhl nebu 3 times per day PRN (Last dose: Unknown) 5. Calcium + Vitamin D 600 - 400 mg Oral 2 tab daily (Last dose: 11/12/2016 09:00) 6. Artificial Tears Opht as needed (Last dose: Unknown) 7. Fish Oil 1,000 mg Oral cap daily (Last dose: 11/12/2016 09:00) 8. flax seed oil 1000 mg daily (Last dose: 11/12/2016 09:00) 9. furosemide 80 mg Oral tab 1 tab once daily (Last dose: 11/12/2016 09:00) 10. metoprolol tartrate 100 mg Oral tab 1 tab 2 times per day (Last dose: 11/12/2016 18:00) 11. Synthroid 88 mcg Oral tab 1 tab once daily (Last dose: 11/12/2016 09:00) 12. tramadol 50 mg Oral tab every 6 hours PRN (Last dose: 11/12/2016 18:00) 13. Xarelto 15 mg oral tab daily (Last dose: 11/12/2016 18:00) 14. Lidoderm 5 % Topical ptmd 1 patch once daily (Last dose: Unknown) 15. Zoloft Unknown Oral Unknown once daily (Last dose: 11/12/2016 09:00) - PMHx: Atrial Fib; Dementia; GERD; Sleep Apnea w/o CPAP; Hypothyroidism; Hypercholesterolemia; Depression; - PSHx: Appendectomy; Colonoscopy; Carpal Tunnel Repair- Left; Cataract Surgery- Bilateral; Cholecystectomy; Carpal Tunnel Repair- Right; - Social history: No barriers to communication noted, The patient speaks fluent Egyptian, Speaks appropriately for age, Smoking status: Patient states former smoker of tobacco. - Family history: Not pertinent. - : The pt / caregiver states he / she is on anticoagulants: Xarelto Home medication list is obtained from the patient. - Exposure Risk Screening:: None identified. Vital Signs: 11/12 18:40 BP 155 / 68; Pulse 61; Resp 16; Temp 97.1(T); Pulse Ox 97% on R/A; Weight 69.4 kg / 153 lr2 lbs (R); Height 4 ft. 8 in. (142.24 cm); Pain 7/10; 23:37 BP 132 / 92; Pulse 59; Resp 16; Pulse Ox 96% on R/A; cz 18:40 Body Mass Index 34.30 (69.40 kg, 142.24 cm) lr2 MDM: 21:31 [facility] Payment Agreement was scanned into [employer] and attached to record. gb 21:57 Financial registration complete. gb 23:07 traMADol 50 mg PO once ordered. ar2 23:07 Acetaminophen Tablet 650 mg PO once ordered. ar2 11/13 12:11 T-Sheet-- Draft Copy was scanned into [employer] and attached to record. lg Administered Medications: 11/12 23:16 Drug: traMADol 50 mg [tramadol 50 mg tablet (1 tabs)] Route: PO; cz 23:16 Drug: Acetaminophen 650 mg [acetaminophen 325 mg tablet (2 tabs)] Route: PO; cz Signatures: Jose A Moss RN RN cz Nickie Sandoval, Reg Reg gb Mercy Donahue, Reg Reg lg Russel Cruz, KANIKA BOUDREAUX ar2 Bonita Ashby RN RN ralphf The chart was reviewed and I authenticate all verbal orders and agree with the evaluation and treatment provided.Attachments: 21:31 [facility] Payment Agreement gb 11/13 12:11 T-Sheet-- Draft Copy lg Chart Complete MTDD
== END 2016-11-12 23:40 | disposition home or self-care (01) ==
LOC: M ED 18:38
DX: M54.42 Lumbago with sciatica, left side (principal); I48.91 Unspecified atrial fibrillation; F03.90 Unspecified dementia, unspecified severity, without behavioral disturbance, psychotic disturbance, mood disturbance, and anxiety; K21.9 Gastro-esophageal reflux disease without esophagitis; G47.30 Sleep apnea, unspecified; E03.9 Hypothyroidism, unspecified; E78.00 Pure hypercholesterolemia, unspecified; F32.9 Major depressive disorder, single episode, unspecified; Z79.899 Other long term (current) drug therapy; Z79.01 Long term (current) use of anticoagulants; Z88.2 Allergy status to sulfonamides; Z87.891 Personal history of nicotine dependence

== ENCOUNTER → 2016-11-18 | Outpatient (REF) | payer MEDICARE, MEDICAID ==
[2016-11-18 16:45] LABS: ALBUMIN 4.1 GM/DL (3.2-5.2); ALBUMIN/GLOBULIN RATIO 1.11 (1.00-1.93); ALKALINE PHOSPHATASE 99 U/L (45-117); ALT/SGPT 19 U/L (12-78); ANION GAP 7 MEQ/L (8-16); AST/SGOT 22 U/L (15-37); BILIRUBIN,TOTAL 1.1 MG/DL (0.2-1.0); BLOOD UREA NITROGEN 12 MG/DL (7-18); CALCIUM LEVEL 9.1 MG/DL (8.8-10.2); CARBON DIOXIDE LEVEL 34 MEQ/L (21-32); CHLORIDE LEVEL 98 MEQ/L (98-107); CREATININE FOR GFR 1.03 MG/DL (0.55-1.02); GLOMERULAR FILTRATION RATE 54.2 (>32); GLUCOSE, FASTING 112 MG/DL (83-110); POTASSIUM SERUM 3.7 MEQ/L (3.5-5.1); SODIUM LEVEL 139 MEQ/L (136-145); TOTAL PROTEIN 7.8 GM/DL (6.4-8.2)
[2016-11-18 16:54] LABS: MEAN CORPUSCULAR HEMOGLOBIN 31.3 pg (27.0-33.0); MEAN CORPUSCULAR HGB CONC 33.6 g/dl (32.0-36.5); MEAN CORPUSCULAR VOLUME 93.3 fl (80.0-96.0); RED CELL DISTRIBUTION WIDTH 13.2 % (11.5-14.5)
== END ==
LOC: M SFHCCLAY 10:52
PROVIDERS: ATTEND Family Medicine
DX: M54.9 Dorsalgia, unspecified (principal); M25.552 Pain in left hip; M25.551 Pain in right hip; E03.9 Hypothyroidism, unspecified

== ENCOUNTER → 2016-11-18 | Outpatient (CLI) | payer MEDICARE, MEDICAID ==
[~2016-11-18] MED LIST changes: +AMLO5TAB2 PO; +ARTI99.0 OU; +COLA100C PO; +DULO1CAP2 PO; +FERR325T3 PO; +FERR325T69 PO; +LEVO100T5 PO; +LIDO1CRE2 EXT; +METO100T PO; +NAME5TAB13 PO
--- NOTE | 2016-11-18 13:11 | REP ---
THORACIC SPINE, THREE VIEWS: HISTORY: Mid back pain. There is no acute fracture or subluxation. There is loss of height of several mid and lower thoracic intervertebral discs. Osteophytes are present in the mid and lower thoracic spine. IMPRESSION: Degenerative change as described above.
--- NOTE | 2016-11-18 13:12 | REP ---
LUMBAR SPINE, FIVE VIEW: HISTORY: Back pain. There is no acute fracture. There is an old compression fracture of the L1 vertebral body with minimal height loss. The lumbar intervertebral discs are decreased in height consistent with disc degeneration. Osteophytes are present throughout the lumbar spine. There is narrowing of the L3-4 through L5-S1 facet joints. There are 4 mm of grade 1 spondylolisthesis of L3 on 4 and L5 on S1. There is scoliosis convex to the left. The bony structures is osteopenic. IMPRESSION: Degenerative change as described above.
--- NOTE | 2016-11-18 13:14 | REP ---
BILATERAL HIPS, AP PELVIS, FIVE VIEWS: HISTORY: Hip pain. COMPARISON: 05/30/2016. There is no acute fracture or dislocation. There is narrowing of the right hip joint space with associated sclerosis and osteophyte formation. There is narrowing of the left hip joint space with associated sclerosis. The bony structure is osteopenic. IMPRESSION: Degenerative change as described above.
== END ==
LOC: M CLY 11:25
PROVIDERS: ATTEND Family Medicine
DX: M16.0 Bilateral primary osteoarthritis of hip (principal); M25.78 Osteophyte, vertebrae; M43.16 Spondylolisthesis, lumbar region; M43.17 Spondylolisthesis, lumbosacral region; M54.9 Dorsalgia, unspecified; E03.9 Hypothyroidism, unspecified
CPT/HCPCS: 72072; 72110; 73521; 80053; 84443; 84550; 85027; 85652; 86038; 86431; G0463

== ENCOUNTER 2016-11-28 09:56 | Inpatient (IN) | payer MEDICARE, MEDICAID ==
[~2016-11-28] VITALS: Ht 152.4 cm; Wt 71.8 kg
[~2016-11-28 09:56] MED LIST changes: -AMLO5TAB2 PO; -ARTI99.0 OU; -COLA100C PO; -DULO1CAP2 PO; -FERR325T3 PO; -FERR325T69 PO; -LEVO100T5 PO; -LIDO1CRE2 EXT; -METO100T PO; -NAME5TAB13 PO
[2016-11-28] MEDS ORDERED: FERR325T3 PO (10:26)
[2016-11-28] MEDS ORDERED: NAME5TAB13 PO (10:35)
[2016-11-28] MEDS ORDERED: DULO1CAP2 PO (10:35)
[2016-11-28] MEDS ORDERED: FURO40TA2 PO (10:35)
[2016-11-28 11:59] LABS: BASO # 0.1 K/mm3 (0.0-0.2); EOS # 0.9 K/mm3 (0.0-0.50); EOS % 10.6 % (0.0-3.0); LARGE UNSTAINED CELL # 0.1 K/mm3 (0.0-0.4); LARGE UNSTAINED CELL % 1.2 % (0.0-4.0); LYMPH # 0.9 K/mm3 (1.5-4.5); LYMPH % 8.9 % (24.0-44.0); MEAN CORPUSCULAR HEMOGLOBIN 32.3 pg (27.0-33.0); MEAN CORPUSCULAR HGB CONC 34.3 g/dl (32.0-36.5); MEAN CORPUSCULAR VOLUME 94.3 fl (80.0-96.0); MONO # 0.6 K/mm3 (0.0-0.8); NEUTROPHILS # 6.1 K/mm3 (1.8-7.7); NEUTROPHILS % 71.3 % (36.0-66.0); PLATELET COUNT, AUTOMATED 365 k/mm3 (150-450); RED CELL DISTRIBUTION WIDTH 13.3 % (11.5-14.5); WHITE BLOOD COUNT 8.5 K/mm3 (4.0-10.0)
[2016-11-28 12:12] LABS: ALBUMIN 3.6 GM/DL (3.2-5.2); ALBUMIN/GLOBULIN RATIO 0.9 (1.00-1.93); BILIRUBIN,DIRECT 0.2 MG/DL (0.0-0.2); CALCIUM LEVEL 9.2 MG/DL (8.8-10.2); CREATININE FOR GFR 1.08 MG/DL (0.55-1.02); GLOMERULAR FILTRATION RATE 51.3 (>32); TOTAL PROTEIN 7.6 GM/DL (6.4-8.2)
[2016-11-28] MEDS ORDERED: POTASSIUM CHLORIDE 10 MEQ SR TABLET PO ONE (12:30)
--- NOTE | 2016-11-28 13:04 | REP ---
CHEST, SINGLE VIEW: Single view of the chest is performed. COMPARISON: 10/09/2016 No acute infiltrate is seen. Heart appears mildly enlarged. There is mild calcification and tortuosity of the thoracic aorta. The mediastinal silhouette is unchanged. IMPRESSION: Mild cardiomegaly. No acute infiltrate. Signed by Hugh Hong MD 11/28/2016 04:16 P
--- NOTE | 2016-11-28 13:31 | REP ---
CT LUMBAR SPINE WITHOUT CONTRAST: HISTORY: Back pain. A diffuse disc bulge is present at the L1-2 level. There is minima compression of the thecal sac. The L1 nerves exit the neural foramina without compression. A diffuse disc bulge is present at the L2-3 level. There is minimal compression of the thecal sac. There is hypertrophy of the posterior articulating facets. The L2 nerves exit the neural foramina without compression. A diffuse disc bulge is present at the L3-4 level. There is hypertrophy of the ligamenta flava and posterior articulating facets. There are 3 mm of grade 1 spondylolisthesis of L3 on 4. These findings produce moderate central canal stenosis. There is compression of the L3 nerves in the neural foramina. A diffuse disc bulge is present at the L4-5 level. There is hypertrophy of the ligamenta flava and posterior articulating facets. These findings produce moderate central canal stenosis. There is compression of the L4 nerves in the neural foramina. A diffuse disc bulge is present at the L5-S1 level. There is minimal compression of the thecal sac. There is hypertrophy of the posterior articulating facets. There are 3 mm of grade 1 spondylolisthesis of L5 on S1. There is compression of the left L5 nerve in the neural foramen. The right L5 nerve exits the neural foramen without compression. The lumbar intervertebral discs are decreased in height. Vacuum phenomenon is present at the L1-2, L4-5, and L5-S1 intervertebral discs. These findings are consistent with disc degeneration. There is an old compression fracture of the L1 vertebral body with minimal height loss. IMPRESSION: 1. Diffuse disc bulges at the L1-2 and L2-3 levels with minimal thecal sac compression. 2. Moderate central canal stenosis at the L3-4 level secondary to disc bulge, ligamentous, and facet hypertrophy and grade 1 spondylolisthesis. There is compression of the L3 nerves in the neural foramina. 3. Moderate central canal stenosis at the L4-5 level secondary to disc bulge ligamentous and facet hypertrophy. There is compression of the L4 nerves in the neural foramina. 4. Diffuse disc bulge at the L5-S1 level with minimal thecal sac compression. There is grade 1 spondylolisthesis of L5 on S1. There is compression of the left L5 nerve in the neural foramen. Signed by Inderjit Santiago MD 11/28/2016 01:35 P
[2016-11-28] MEDS ORDERED: MORPHINE 2 MG/ML 1ML SYRINGE IV PRN (13:45)
[2016-11-28] MEDS ORDERED: ONDANSETRON 4MG/2ML VIAL (J2405) IV ONE (13:45)
[2016-11-28] MEDS ORDERED: LEVO100T5 PO (14:32)
[2016-11-28] MEDS ORDERED: DIGO0.12 PO (14:35)
[2016-11-28] MEDS ORDERED: ARTI99.0 OU (14:35)
[2016-11-28] MEDS ORDERED: LIDO1CRE2 EXT (14:38)
[2016-11-28] MEDS ORDERED: METO100T PO (14:38)
[2016-11-28] MEDS ORDERED: FERR325T69 PO (14:38)
[2016-11-28] MEDS ORDERED: XARE15TA PO (14:38)
--- NOTE | 2016-11-28 15:07 | HPEPDOC ---
Medical History and Physical Date of Admission 11/28/16 History and Physical ATTENDING: Dr. Jimenez PCP: Silvino CC: Back pain HPI: 86yoF with a past medical history significant for chronic LBP, atrial fib, who states she has had increasing LBP for the past 2 weeks and was seen by Dr Araya with Lidocaine cream prescribed. Pain has persisted and worsened and came to ED for eval. Per pt pain across LB with radiation down LLE to [place]/ foot. weak at times, uses cane as needed. Refuses walker. Denies paresthesia, denies B/Bl incontinence. Achey pain. Yesterday noticed black stools with abdominal pain. Associated diarrea. Past 1 month dec appetite. Decreased wt. No NSAID use. Denies any fevers, chills, weakness, fatigue, [place], CP, SOB, cough, palpitations , abdominal pain, N/V/D or changes in bowel or bladder habits. Upon presentation to the hospital the patient was found to have GI Bleeding and intractable LBP, thus the hospitalist team was consulted. PMHx: hypothyroid HTN dementia MORENITA/ REFUSES CPAP Chronic LBP- seen by [facility] Dr Araya/Pain MGMT in past. HLD Allergic rhinitis GERD Vitamin D Def A Fib- Xarelto PSHX: appendectomy B/L CTR cholecystectomy Colonoscopy 2007 B/L cataract SOCHX: Resides in: [place], lives in [facility] at [facility] Marital Status: Kids: x 2 Employment: retired Tobacco use: denies ETOH: denies Illicit Drugs: Denies Recent travel: denies Advanced directives: none FAMHX: Mother: [place] Father: CVA Siblings: Alive, h/o MM Children: Alive, well Unexpected deaths due to medical reasons: None. ROS: As noted in HPI, otherwise 11pt ROS of systems reviewed and unremarkable. PE: GEN: 86yoF, appears stated age. Well-nourished, well developed. No acute distress. Alert and oriented x 3. Pleasant, interactive. HEENT: Normocephalic, atraumatic. Pupils are equal, round, and reactive to light. Extraocular movements are intact. No nystagmus appreciated. Sclera are nonicteric. Conjunctiva without injection. Nose midline. Nasal turbinates without bogginess. EACs both patent BL. TMs both visualized and hernández with good cone of light, no bulging or erythema. No facial asymmetry. Moist mucous membranes. Dentition fair. Pharynx pink and moist, no cobblestoning. Neck supple , trachea midline. No lymphadenopathy or thyromegaly appreciated. CHEST: Regular rate and rhythm, +S1, +S2 LUNGS: Clear to auscultation bilaterally. No wheezes, rales, or rhonchi. Breathing appears symmetric and easy. Patient is speaking in full sentences. No accessory muscle use. ABD: Round, soft, non-tender, non-distended. +Bowel sounds throughout. No rebound or guarding. No costovertebral angle tenderness. EXT: Pulses 2+ bilaterally dorsalis pedis and radial. No lower extremity edema appreciated. SKIN: [place], dry, warm. Capillary refill <2sec. No rashes. TTP LB and PS muscles. NEURO: Alert and oriented x 3. Cranial nerves III-XII are intact. No focal deficits appreciated. CXR: Mild cardiomegaly. No acute infiltrate. CT: LS 1. Diffuse disc bulges at the L1-2 and L2-3 levels with minimal thecal sac compression. 2. Moderate central canal stenosis at the L3-4 level secondary to disc bulge, ligamentous, and facet hypertrophy and grade 1 spondylolisthesis. There is compression of the L3 nerves in the neural foramina. 3. Moderate central canal stenosis at the L4-5 level secondary to disc bulge ligamentous and facet hypertrophy. There is compression of the L4 nerves in the neural foramina. 4. Diffuse disc bulge at the L5-S1 level with minimal thecal sac compression. There is grade 1 spondylolisthesis of L5 on S1. There is compression of the left L5 nerve in the neural foramen. Heme pos in ED. A&P: 86yoF with a past medical history significant for chronic LBP, atrial fib , who states she has had increasing LBP for the past 2 weeks and was seen by Dr Araya with Lidocaine cream prescribed. Pain has persisted and worsened and came to ED for eval. The patient will be admitted to for at least [address] Jimenez's service. GI Bleeding. NPO/IVF at 75cc/hr. Zofran prn. IV Protonix Q12. Dr Simon consulted and will see pt. Q6 CBC. Consent for blood products placed on chart. hypokalemia. Supplement given in ED. Recheck BMP with next set of labs. Chronic LBP. Pain control. PT. Consider MRI if pain persists. A Fib Hold Xarelto. Metoprolol Q6 with hold parameters. Digoxin(add level) Hypothyroid. Continue supplement. HTN. Hold lisinopril for now. DVT prophylaxis. The patient is a Full code Vital Signs 96.7 82 97/54 16 96RA Laboratory Data Labs 24H Laboratory Tests 2 11/28/16 10:57: Aspartate Amino Transf (AST/SGOT) 21, Alanine Aminotransferase (ALT/SGPT) 23, Alkaline Phosphatase 84, Total Bilirubin 1.0, Direct Bilirubin 0.2, Albumin 3.6 , Albumin/Globulin Ratio 0.90L, Anion Gap 11, White Blood Count 8.5, Red Blood Count 4.66, Hemoglobin 15.1, Hematocrit 44.0, Mean Corpuscular Volume 94.3, Mean Corpuscular Hemoglobin 32.3, Mean Corpuscular Hemoglobin Concent 34.3, Red Cell Distribution Width 13.3, Platelet Count 365, Neutrophils (%) (Auto) 71.3H, Lymphocytes (%) (Auto) 8.9L, Monocytes (%) (Auto) 7.0H, Eosinophils (%) (Auto) 10.6H, Basophils (%) (Auto) 1.0, Neutrophils # (Auto) 6.1, Lymphocytes # (Auto) 0.9L, Monocytes # (Auto) 0.6, Eosinophils # (Auto) 0.9H, Basophils # (Auto) 0.1 , Calcium Level 9.2, Glomerular Filtration Rate 51.3, Large Unclassified Cells # 0.1, Large Unclassified Cells % 1.2, Lipase 143, Total Protein 7.6 11/28/16 13:10: Urine Amorphous Sediment , Urine Appearance CLEAR, Urine Color YELLOW, Urine pH 7.0, Urine Specific [place] 1.009, Urine Protein NEGATIVE, Urine Glucose (UA) NEGATIVE, Urine Ketones NEGATIVE, Urine Urobilinogen 0.2, Urine Bilirubin NEGATIVE, Urine Leukocyte Esterase NEGATIVE, Urine Bacteria (Auto) NEGATIVE, Urine Blood NEGATIVE, Urine Calcium Carbonate Cryst(Auto) , Urine Calcium Oxalate Cryst (Auto) , Urine Calcium Phosphate [place] (Auto) , Urine Cellular Casts , Urine Cystine Crystals , Urine Granular Casts (Auto) , Urine Hyaline Casts (Auto) 4, Urine Leucine Crystals , Urine Mucus (Auto) , Urine Nitrite NEGATIVE, Urine Oval Fat Bodies (Auto) , Urine RBC (Auto) 1, Urine Renal Epithelial Cells , Urine Sperm (Auto) , Urine Squamous Epithelial Cells 0, Urine Transitional Epithelial Cells , Urine Trichomonas (Auto) , Urine Triple Phosphate Cryst (Auto) , Urine Tyrosine Crystals , Urine Uric Acid Crystals ( Auto) , Urine WBC (Auto) 5H, Urine Waxy Casts (Auto) , Urine Yeast-Like Cells ( Auto) CBC/BMP Laboratory Tests 11/28/16 10:57 Red Blood Count 4.66, Mean Corpuscular Volume 94.3, Mean Corpuscular Hemoglobin 32.3, Mean Corpuscular Hemoglobin Concent 34.3, Red Cell Distribution Width 13.3 , Neutrophils (%) (Auto) 71.3 H, Lymphocytes (%) (Auto) 8.9 L, Monocytes (%) ( Auto) 7.0 H, Eosinophils (%) (Auto) 10.6 H, Basophils (%) (Auto) 1.0, Neutrophils # (Auto) 6.1, Lymphocytes # (Auto) 0.9 L, Monocytes # (Auto) 0.6, Eosinophils # (Auto) 0.9 H, Basophils # (Auto) 0.1 Microbiology Microbiology 11/28/16 Urine Culture, Received Pending Home Medications Scheduled (Caltrate 600+D 600-800 mg-Unit) 1 Tab Tab 1 TAB PO DAILY (Ensure Plus) 1 Liq Liq 1 LIQ PO QID PT DRINKS UP TO QID BUT SOME DAYS ONLY HAS ONE Digoxin (Digoxin) 0.125 Mg Tab 0.125 MG PO DAILY Donepezil Hydrochloride (Aricept) 10 Mg Tab 10 MG PO QHS Duloxetine Hcl (Duloxetine HCl) 30 Mg Cap 30 MG PO DAILY Ferrous Gluconate (Ferrous Gluconate) 325 Mg Tab 325 MG PO BID Furosemide (Furosemide) 40 Mg Tab 80 MG PO DAILY Levothyroxine Sodium (Synthroid) 88 Mcg Tab 88 MCG PO Q2D Levothyroxine Sodium (Synthroid) 100 Mcg Tab 100 MCG PO Q2D Lisinopril (Lisinopril) 5 Mg Tab 2.5 MG PO DAILY Memantine (Namenda) 5 Mg Tab 5 MG PO QHS Metoprolol Tartrate (Metoprolol Tartrate) 100 Mg Tab 100 MG PO BID Rivaroxaban (Xarelto) 15 Mg Tab 15 MG PO QHS Scheduled PRN (Lidocaine) 4 % Cre 4 % EXT TID PRN PRN BACK PAIN Acetaminophen (Acetaminophen) 325 Mg Tab 650 MG PO Q6H PRN PRN PAIN Albuterol Sulfate (Albuterol Sulfate) 2.5 Mg/3 Ml Nebu 2.5 MG INH Q4H PRN PRN SHORTNESS OF BREATH Artificial Tears (Artificial Tears) 1.4 % Laurie 2 DROP OU PRN DRY EYES Allergies Coded Allergies: Antihistamines, Chlorpheniramine-ty (Unverified Allergy, Unknown, headache , 11/28/16) Antihistamines, Loratadine-type (Unverified Allergy, Unknown, headache, 11/28/16) Cefuroxime (Verified Allergy, Unknown, 09/08/15) Cetirizine (Unverified Allergy, Unknown, headache, 11/28/16) Diphenhydramine (Unverified Adverse Reaction, Intermediate, SEVERE HEADACHE, 12/31/12) Sulfa Drugs (Unverified Adverse Reaction, Intermediate, FOGGY AND DIFFICULTY SEEING, 12/31/12) Sulfa Drugs Cross Reactors (Unverified Adverse Reaction, Intermediate, FOGGY AND DIFFICULTY SEEING, 12/31/12) Roxanne Henriquez Nov 28, 2016 15:07
[2016-11-28 15:19] LABS: INR 1.28
[2016-11-28] MEDS: NS 1,000 ML IV SCH (15:37)
[2016-11-28] MEDS ORDERED: ONDANSETRON 4MG/2ML VIAL (J2405) IV PRN (15:45)
[2016-11-28] MEDS ORDERED: ACETAMINOPHEN TAB 650MG DOSE (2X325MG) PO PRN (15:45)
[2016-11-28 16:24] LABS: DIGOXIN LEVEL 1.1 NG/ML (0.5-2.0)
[2016-11-28 17:01] LABS: MEAN CORPUSCULAR HEMOGLOBIN 31.7 pg (27.0-33.0); MEAN CORPUSCULAR VOLUME 93.3 fl (80.0-96.0); RED CELL DISTRIBUTION WIDTH 13.1 % (11.5-14.5); WHITE BLOOD COUNT 9.1 K/mm3 (4.0-10.0)
[2016-11-28 20:17] VITALS: BP 103/75
[2016-11-28] MEDS: METOPROLOL TART 50 MG TAB PO SCH (20:44)
--- NOTE | 2016-11-28 20:46 | ECGEPIP ---
Stationary ECG Study [facility] - ED Test Date: 2016-11-28 Pat Name: DEA BYERS Department: Room: - Gender: F Conveyor Tender: herbert : 1930 Requested By: SINGH Albarran Order Number: [id number] Reading MD: Phi Franklin Measurements Intervals [place] Rate: 50 P: KS: 0 QRS: -64 QRSD: 87 T: 65 QT: 412 QTc: 378 Interpretive Statements ATRIAL FIBRILLATION WITH SLOW VENTRICULAR RESPONSE PATTERN CONSISTENT WITH PULMONARY DISEASE LEFT ANTERIOR FASCICULAR BLOCK MODERATE VOLTAGE CRITERIA FOR LVH, CONSIDER NORMAL VARIANT NONSPECIFIC ST & T-WAVE ABNORMALITY SIMILAR EXCEPT SLOWER RATE TO 10/09/16 Electronically Signed On 11-28-2016 20:45:36 EST by Phi Franklin
[2016-11-28] MEDS: MEMANTINE 5MG TABLET (NAMENDA) PO SCH (20:48)
[2016-11-28] MEDS: PANTOPRAZOLE 40MG INJ (PROTONIX) (C9113) IV SCH (20:48)
[2016-11-28] MEDS: PERCOCET 5MG/325MG TAB PO PRN (20:48)
[2016-11-28 23:38] LABS: MEAN CORPUSCULAR HEMOGLOBIN 31.2 pg (27.0-33.0); MEAN CORPUSCULAR HGB CONC 33.2 g/dl (32.0-36.5); MEAN CORPUSCULAR VOLUME 93.8 fl (80.0-96.0); RED CELL DISTRIBUTION WIDTH 13.3 % (11.5-14.5); WHITE BLOOD COUNT 9.5 K/mm3 (4.0-10.0)
[2016-11-29] VITALS (7 sets, daily range): BP systolic 124–160; BP diastolic 60–89
[2016-11-29] MEDS: METOPROLOL TART 50 MG TAB PO SCH ×5 (00:31→23:53)
[2016-11-29] MEDS: MORPHINE 2 MG/ML 1ML SYRINGE IV PRN ×4 (00:34→23:34)
[2016-11-29 05:19] LABS: MEAN CORPUSCULAR HEMOGLOBIN 30.9 pg (27.0-33.0); MEAN CORPUSCULAR HGB CONC 32.9 g/dl (32.0-36.5); RED CELL DISTRIBUTION WIDTH 13.1 % (11.5-14.5); WHITE BLOOD COUNT 9.3 K/mm3 (4.0-10.0)
[2016-11-29 05:20] LABS: ALBUMIN 3.4 GM/DL (3.2-5.2); ALBUMIN/GLOBULIN RATIO 0.92 (1.00-1.93); BILIRUBIN,TOTAL 1.2 MG/DL (0.2-1.0); CALCIUM LEVEL 8.5 MG/DL (8.8-10.2); CREATININE FOR GFR 1.07 MG/DL (0.55-1.02); GLOMERULAR FILTRATION RATE 51.9 (>32); POTASSIUM SERUM 3.9 MEQ/L (3.5-5.1); TOTAL PROTEIN 7.1 GM/DL (6.4-8.2)
[2016-11-29] MEDS: NS 1,000 ML IV SCH ×2 (05:29→09:12)
[2016-11-29] MEDS: DIGOXIN 0.125 MG TAB PO SCH (09:05)
[2016-11-29] MEDS: PANTOPRAZOLE 40MG INJ (PROTONIX) (C9113) IV SCH ×2 (09:05→21:00)
--- NOTE | 2016-11-29 09:58 | IPNPDOC ---
Subjective Date Seen The patient was seen on 11/29/16. Subjective Chief Complaint/HPI Pt confused. She c/o back pain and abd pain. Sitter at bedside. General: Denies: Fatigue Constitutional: Denies: Chills, Fever Pulmonary: Denies: Cough, Dyspnea Cardiovascular: Denies: Chest Pain, Palpitations Gastrointestinal: Reports: Abdominal Pain, Denies: Diarrhea, Nausea, Vomiting Musculoskeletal: Reports: Back Pain Psych: Reports: Memory Issues Objective Physical Examination General Exam: Positive: Alert, Mild Distress (noted with exam - she responds negatively to gentle touch responding that it is very painful, same response with moderate pressure) ENT Exam: Positive: Mucous membr. moist/pink Chest Exam: Positive: Normal air movement, Rales (fibrotic rales at B bases) Heart Exam: Positive: Normal S1, Normal S2, Rate Normal Abdomen Exam: Positive: Normal bowel sounds, Soft, Negative: Tenderness (LLQ moderate palpation with + pain response, then palpated LUQ with min pressure and had same response, then guarding throughout rest of exam, difficult to really determine where she truly has pain.) Extremity Exam: Negative: Edema Neuro Exam: Positive: Other (palpation of the mid to low back, gentle pressure applied, patient became slightly agitated due to pain, both over she spine and the paraspinal muscles. As I moved by hand away from her back my bracelets grazed her upper back and she had the same pain response.) Psych Exam: Negative: Memory Intact Assessment /Plan Problems (1) Chronic a-fib Status: Acute Problem Text: Xarelto on hold rate controlled on HD metoprolol/dig (2) Low back pain Status: Acute Response to Treatment: Uncontrolled Discussed With: Patient Problem Specific Plan: Monitor Clinically Problem Text: CT L spine with moderate disease, she does have some nerve compression but is not c/o of neuropathic radiating symptoms. Consider Ortho consult, consult Pain Consult - address with attending. Current pain control with morphine IV and percocet. (3) GI bleed Status: Acute Response to Treatment: Stable Problem Specific Plan: Monitor Clinically, Repeat Labs Problem Text: HO + but no change of hgb since admission 11/29 14.2 11/18/16 hgb 14.2 No stool since admission (4) Abdominal pain Status: Acute Response to Treatment: Stable Problem Specific Plan: Monitor Clinically Problem Text: address with attending, consider CT A & P. (5) Dementia Status: Chronic Response to Treatment: Stable Problem Specific Plan: Monitor Clinically (6) HTN (hypertension) Status: Chronic Response to Treatment: Stable Plan/VTE VTE Prophylaxis Ordered?: Yes VS, I&O, 24H, Fishbone Vital Signs/I&O Vital Signs Date Time Temp Pulse Resp B/P Pulse Ox O2 Delivery O2 Flow Rate FiO2 11/29/16 09:05 74 11/29/16 06:55 142/72 11/29/16 04:00 97.9 18 97 Room Air I&O- Last 24 Hours up to 6 AM 11/29/16 06:00 Intake Total 900 ml Output Total 525 ml Balance 375 ml Laboratory Data 24H LABS Laboratory Tests 2 11/28/16 10:57: Activated Partial Thromboplast Time 33.0, Aspartate Amino Transf (AST/SGOT) 21, Alanine Aminotransferase (ALT/SGPT) 23, Alkaline Phosphatase 84, Total Bilirubin 1.0, Direct Bilirubin 0.2, Albumin 3.6, Albumin/Globulin Ratio 0.90L, Anion Gap 11, White Blood Count 8.5, Red Blood Count 4.66, Hemoglobin 15.1, Hematocrit 44.0, Mean Corpuscular Volume 94.3, Mean Corpuscular Hemoglobin 32.3 , Mean Corpuscular Hemoglobin Concent 34.3, Red Cell Distribution Width 13.3, Platelet Count 365, Neutrophils (%) (Auto) 71.3H, Lymphocytes (%) (Auto) 8.9L, Monocytes (%) (Auto) 7.0H, Eosinophils (%) (Auto) 10.6H, Basophils (%) (Auto) 1.0, Neutrophils # (Auto) 6.1, Lymphocytes # (Auto) 0.9L, Monocytes # (Auto) 0.6 , Eosinophils # (Auto) 0.9H, Basophils # (Auto) 0.1, Calcium Level 9.2, Digoxin Level 1.1, Glomerular Filtration Rate 51.3, Large Unclassified Cells # 0.1, Large Unclassified Cells % 1.2, Lipase 143, Prothromb Time International Ratio 1.28, Prothrombin Time 16.1H, Total Protein 7.6 11/28/16 13:10: Urine Amorphous Sediment , Urine Appearance CLEAR, Urine Color YELLOW, Urine pH 7.0, Urine Specific [place] 1.009, Urine Protein NEGATIVE, Urine Glucose (UA) NEGATIVE, Urine Ketones NEGATIVE, Urine Urobilinogen 0.2, Urine Bilirubin NEGATIVE, Urine Leukocyte Esterase NEGATIVE, Urine Bacteria (Auto) NEGATIVE, Urine Blood NEGATIVE, Urine Calcium Carbonate Cryst(Auto) , Urine Calcium Oxalate Cryst (Auto) , Urine Calcium Phosphate Kenzie (Auto) , Urine Cellular Casts , Urine Cystine Crystals , Urine Granular Casts (Auto) , Urine Hyaline Casts (Auto) 4, Urine Leucine Crystals , Urine Mucus (Auto) , Urine Nitrite NEGATIVE, Urine Oval Fat Bodies (Auto) , Urine RBC (Auto) 1, Urine Renal Epithelial Cells , Urine Sperm (Auto) , Urine Squamous Epithelial Cells 0, Urine Transitional Epithelial Cells , Urine Trichomonas (Auto) , Urine Triple Phosphate Cryst (Auto) , Urine Tyrosine Crystals , Urine Uric Acid Crystals ( Auto) , Urine WBC (Auto) 5H, Urine Waxy Casts (Auto) , Urine Yeast-Like Cells ( Auto) 11/28/16 15:05: Lactic Acid (Sepsis) 1.6 11/29/16 04:42: Aspartate Amino Transf (AST/SGOT) 51H, Alanine Aminotransferase (ALT/SGPT) 30, Alkaline Phosphatase 75, Total Bilirubin 1.2H, Albumin 3.4, Albumin/Globulin Ratio 0.92L, Anion Gap 5L, Calcium Level 8.5L, Glomerular Filtration Rate 51.9, Total Protein 7.1, Blood Urea Nitrogen 13, Creatinine 1.07H, Sodium Level 141, Potassium Level 3.9#, Chloride Level 103, Carbon Dioxide Level 33H CBC/BMP Laboratory Tests 11/28/16 10:57 Red Blood Count 4.66, Mean Corpuscular Volume 94.3, Mean Corpuscular Hemoglobin 32.3, Mean Corpuscular Hemoglobin Concent 34.3, Red Cell Distribution Width 13.3 , Neutrophils (%) (Auto) 71.3 H, Lymphocytes (%) (Auto) 8.9 L, Monocytes (%) ( Auto) 7.0 H, Eosinophils (%) (Auto) 10.6 H, Basophils (%) (Auto) 1.0, Neutrophils # (Auto) 6.1, Lymphocytes # (Auto) 0.9 L, Monocytes # (Auto) 0.6, Eosinophils # (Auto) 0.9 H, Basophils # (Auto) 0.1 11/28/16 16:47 Red Blood Count 4.54, Mean Corpuscular Volume 93.3, Mean Corpuscular Hemoglobin 31.7, Mean Corpuscular Hemoglobin Concent 34.0, Red Cell Distribution Width 13.1 11/28/16 23:23 Red Blood Count 4.67, Mean Corpuscular Volume 93.8, Mean Corpuscular Hemoglobin 31.2, Mean Corpuscular Hemoglobin Concent 33.2, Red Cell Distribution Width 13.3 11/29/16 04:42 Red Blood Count 4.59, Mean Corpuscular Volume 94.0, Mean Corpuscular Hemoglobin 30.9, Mean Corpuscular Hemoglobin Concent 32.9, Red Cell Distribution Width 13.1 , Calcium Level 8.5 L, Aspartate Amino Transf (AST/SGOT) 51 H, Alanine Aminotransferase (ALT/SGPT) 30, Alkaline Phosphatase 75, Total Bilirubin 1.2 H, Total Protein 7.1, Albumin 3.4 Microbiology Microbiology 11/28/16 Urine Culture, Received Pending TOMI RUSSELL PA-C Nov 29, 2016 09:58 Yanick Crow M.D. Nov 29, 2016 16:29
[2016-11-29] MEDS: ENOXAPARIN 30 MG/0.3 ML SYR (J1650) SC SCH (11:38)
--- NOTE | 2016-11-29 12:00 | CR ---
DATE OF CONSULTATION: 11/28/2016 REASON FOR CONSULTATION: Gastrointestinal (GI) bleed. HISTORY OF PRESENT ILLNESS: The patient is an 86-year-old female who is an extremely poor historian, has developed chronic low lower back pain, atrial fibrillation (A Fib), and she has had worsening pain and discomfort. She was seen in the emergency room for further evaluation. At home she states that she had some darker stools. No bright red blood per rectum. She has not had any fevers or chills. No nausea or vomiting. No diarrhea. No constipation issues. She had a colonoscopy in 2007. She does have some dementia and thus her historical issues are somewhat vague. She did have "a reported heme-positive stool, although no bloody bowel movements in the emergency room, no bowel movements in the emergency room and none since that time. PAST MEDICAL HISTORY: 1. History of hypothyroidism. 2. History of hypertension. 3. History of dementia. 4. History of obstructive sleep apnea (MORENITA). 5. History of chronic lower back pain. 6. History of hyperlipidemia. 7. History of gastroesophageal reflux disease. 8. History of vitamin D deficiency. 9. History of atrial fibrillation (A-Fib). PAST SURGICAL HISTORY: 1. History of appendectomy. 2. History of cholecystectomy. 3. History of colonoscopy. 4. History of cataract surgery. MEDICATIONS: Digoxin, Aricept, Duloxetine, Iron, Lasix, Synthroid, Lisinopril, Namenda, Metoprolol and Xarelto. PHYSICAL EXAMINATION: GENERAL: The patient is an 86-year-old female who looks her stated age. She is uncomfortable and complaining of severe back pain. She is stating that she is hungry. HEENT: Unremarkable. LUNGS: Lungs are clear anteriorly although diminished posteriorly. HEART: Heart is regular. ABDOMEN: Soft, mildly tender throughout, with distraction the tenderness seems to be to resolve. EXTREMITIES: Warm, well-perfused. IMPRESSION AND PLAN: The patient had developed "gastrointestinal bleeding (GI)" however her hematocrit has been stable overnight despite being on Xarelto. I am not seeing a significant drop her hematocrit. At this point my recommendation is that we can start her on a clear liquid diet and consider an upper endoscopy later on this week. However, I am not convinced at this time that she has an active GI bleeding. She may have heme-positive stools but GI bleeding seems unlikely at this point. It is not unreasonable to have her undergo an upper and lower endoscopy at some point as an elective situation as an outpatient but if you would still like me to pursue an upper endoscopy while she is an inpatient that also is not unreasonable. Given her significant back pain and difficulty moving around, I feel that having her go through a bowel prep and having to move as much she needs to would be difficult and possibly quite uncomfortable for her. The other option of course given her anticoagulation issues and her advancing dementia issues is that she may not require additional anticoagulation or she may be deemed a high risk individual for anticoagulation. If that is the case, stopping her anticoagulation and repeating her stool guaiacs may also be reasonable. I do feel that the last reasonable option for her is to proceed with an upper GI here in the hospital. If this shows no significant abnormality, continued treatment with a proton pump inhibitor as an outpatient is reasonable and modifying her anticoagulation is also reasonable. Thanks for this consult. I will be available should you like to discuss this issue further. cc: Evelin Jimenez MD
[2016-11-29] MEDS: PERCOCET 5MG/325MG TAB PO PRN (14:40)
[2016-11-29 18:03] LABS: CALCIUM LEVEL 8.6 MG/DL (8.8-10.2); CREATININE FOR GFR 0.98 MG/DL (0.55-1.02); GLOMERULAR FILTRATION RATE 57.4 (>32); POTASSIUM SERUM 3.9 MEQ/L (3.5-5.1)
[2016-11-29] MEDS ORDERED: HALOPERIDOL 5 MG/ML VIAL (J1630) As Ordered ONE (19:37)
[2016-11-29] MEDS: HALOPERIDOL 5 MG/ML VIAL (J1630) IM PRN ×2 (19:42→20:10)
[2016-11-29] MEDS: MEMANTINE 5MG TABLET (NAMENDA) PO SCH (21:00)
[2016-11-29] MEDS ORDERED: HALOPERIDOL 0.5 MG TAB PO PRN (23:45)
[2016-11-29] MEDS ORDERED: HALOPERIDOL 5 MG/ML VIAL (J1630) IM PRN (23:45)
[2016-11-30] MEDS: LEVOTHYROXINE 0.088 MG TAB (88 MCG) PO SCH ×2 (05:48→05:57)
[2016-11-30] MEDS: METOPROLOL TART 50 MG TAB PO SCH ×5 (05:50→23:45)
[2016-11-30 06:00] VITALS: BP 149/89
--- NOTE | 2016-11-30 08:02 | IPNPDOC ---
Subjective Date Seen The patient was seen on 11/30/16. Subjective Chief Complaint/HPI The patient is a 86-year-old female admitted with a reason for visit of Gi Bleed. Events since last encounter Continues with spine pain, poor mobility and hip pain. Confusion has been progressing and needed Haldol IM. Spoke with daughter, behavior is consistent with when patient has pain. dementia has been present for 3-4 years and her behavior worsens when in pain. Constitutional: Denies: Chills, Fever ENT: Denies: Head Aches Pulmonary: Denies: Dyspnea Cardiovascular: Denies: Chest Pain Gastrointestinal: Reports: Constipation, Denies: Abdominal Pain, Nausea, Vomiting Genitourinary: Denies: Dysuria, Frequency Psych: Reports: Anger, Memory Issues, Other Psych (combative) Objective Physical Examination General Exam: Positive: Alert, Mild Distress (noted with exam - she responds negatively to gentle touch responding that it is very painful, same response with moderate pressure) ENT Exam: Positive: Mucous membr. moist/pink Chest Exam: Positive: Normal air movement Heart Exam: Positive: Normal S1, Normal S2, Rate Normal Abdomen Exam: Positive: Normal bowel sounds, Soft, Tenderness (LLQ moderate palpation with + pain response, then palpated LUQ with min pressure and had same response, then guarding throughout rest of exam, difficult to really determine where she truly has pain.) Extremity Exam: Negative: Edema Neuro Exam: Positive: Other (alert to self. agitated with touch/stimulation. unabel to eprform back exam due to patient refusal/agitation) Psych Exam: Negative: Memory Intact Assessment /Plan Problems (1) Low back pain Status: Acute Response to Treatment: Uncontrolled Discussed With: Patient Problem Specific Plan: Monitor Clinically Problem Text: CT L spine with moderate disease, she does have some nerve compression but is not c/o of neuropathic radiating symptoms. Consider Ortho consult, consult Pain Consult - address with attending. Current pain control with morphine IV and percocet. (2) RENITA positive Status: Acute Problem Text: RENITA 1:640 homogenous pattern on 11/18/2016 labs drawn as an outpatient. Will trial steroids today. Solumedrol 80 mg IV q1 8 hrs ordered. D/ W daughter: no prior hx of lupus, RA, autoimmune d/o. Agreeable to steroid trial (3) GI bleed Status: Acute Response to Treatment: Stable Problem Specific Plan: Monitor Clinically, Repeat Labs Problem Text: 11/30/2016: Hgb stable. No BM x 2 days. bowel regimen ordered. monitor. HO + but no change of hgb since admission 11/29 14.2 11/18/16 hgb 14.2 No stool since admission (4) Chronic a-fib Status: Acute Problem Text: Xarelto on hold rate controlled on HD metoprolol/dig (5) Abdominal pain Status: Acute Response to Treatment: Stable Problem Specific Plan: Monitor Clinically Problem Text: address with attending, consider CT A & P. (6) Dementia Status: Chronic Response to Treatment: Stable Problem Specific Plan: Monitor Clinically (7) HTN (hypertension) Status: Chronic Response to Treatment: Stable Plan/VTE VTE Prophylaxis Ordered?: Yes Plan Family Medicine Attending Note: Patient seen and examined; I d/w Kristin Solano NP and I agree with her note. Per nursing, patient refused PM meds yesterday and AM meds today - HR and BP is elevated, likely due to not receiving metoprolol. Her daughter is supposed to come in this evening to try to convince her to take her medications. H/H stable - likely due to xarelto being held. I would not recommend that she be discharged on xarelto; this may need to be discussed with her family. Gen Surg states that if we do not plan to d/c on xarelto, then EGD is probably not necessary as H/H is stable. Patient is still c/o back pain - solumedrol added today and continue pain medications. (KES) VS, I&O, 24H, Fishbone Vital Signs/I&O Vital Signs Date Time Temp Pulse Resp B/P Pulse Ox O2 Delivery O2 Flow Rate FiO2 11/30/16 06:00 97.3 82 18 149/89 94 Room Air I&O- Last 24 Hours up to 6 AM 11/30/16 06:00 Intake Total 1640 ml Output Total 425 ml Balance 1215 ml Laboratory Data 24H LABS Laboratory Tests 2 11/29/16 17:28: Anion Gap 6L, Blood Urea Nitrogen 14, Creatinine 0.98, Sodium Level 138, Potassium Level 3.9, Chloride Level 101, Carbon Dioxide Level 31, Calcium Level 8.6L, Glomerular Filtration Rate 57.4 CBC/BMP Laboratory Tests 11/29/16 17:28 Calcium Level 8.6 L Microbiology Microbiology 11/28/16 Urine Culture, Received Pending Kristin Solano Nov 30, 2016 08:02 REMBERTO GRANADOS MD Nov 30, 2016 17:00
[2016-11-30] MEDS: DOCUSATE SODIUM 100 MG CAP PO SCH ×3 (09:00→20:36)
[2016-11-30] MEDS: ENOXAPARIN 30 MG/0.3 ML SYR (J1650) SC SCH (09:00)
[2016-11-30] MEDS: methylPREDNISolone INJ 125 MG/2 ML VIAL (J2930) IV SCH ×3 (10:04→23:45)
[2016-11-30] MEDS: PANTOPRAZOLE 40MG INJ (PROTONIX) (C9113) IV SCH ×2 (10:05→20:36)
[2016-11-30] MEDS: NS 1,000 ML IV SCH ×2 (10:06→20:36)
[2016-11-30] MEDS: DIGOXIN 0.125 MG TAB PO SCH (10:09)
[2016-11-30] MEDS: MORPHINE 2 MG/ML 1ML SYRINGE IV PRN ×2 (18:31→21:44)
[2016-11-30] MEDS: SENNA 8.6 MG TAB (SENOKOT) PO SCH (20:36)
[2016-11-30] MEDS: MEMANTINE 5MG TABLET (NAMENDA) PO SCH (20:36)
[2016-11-30 22:00] VITALS: BP 144/68
[2016-11-30] MEDS: PERCOCET 5MG/325MG TAB PO PRN (22:19)
[2016-11-30 23:51] VITALS: BP 150/70
[2016-12-01] MEDS: MORPHINE 2 MG/ML 1ML SYRINGE IV PRN ×4 (01:35→13:48)
[2016-12-01] MEDS: METOPROLOL TART 50 MG TAB PO SCH ×3 (05:41→17:25)
[2016-12-01] MEDS: PERCOCET 5MG/325MG TAB PO PRN ×2 (05:42→11:31)
[2016-12-01 06:00] VITALS: BP 140/84
[2016-12-01] MEDS ORDERED: LEVOTHYROXINE 0.1 MG TAB (100 MCG) PO SCH (06:00)
[2016-12-01 07:27] LABS: ALBUMIN 3.5 GM/DL (3.2-5.2); ALBUMIN/GLOBULIN RATIO 0.88 (1.00-1.93); ALKALINE PHOSPHATASE 80 U/L (45-117); ALT/SGPT 37 U/L (12-78); ANION GAP 9 MEQ/L (8-16); AST/SGOT 35 U/L (15-37); BILIRUBIN,TOTAL 1.1 MG/DL (0.2-1.0); BLOOD UREA NITROGEN 13 MG/DL (7-18); CALCIUM LEVEL 9.2 MG/DL (8.8-10.2); CARBON DIOXIDE LEVEL 25 MEQ/L (21-32); CHLORIDE LEVEL 104 MEQ/L (98-107); CREATININE FOR GFR 0.78 MG/DL (0.55-1.02); GLOMERULAR FILTRATION RATE > 60.0 (>32); GLUCOSE, FASTING 149 MG/DL (83-110); POTASSIUM SERUM 4.1 MEQ/L (3.5-5.1); SODIUM LEVEL 138 MEQ/L (136-145); TOTAL PROTEIN 7.5 GM/DL (6.4-8.2)
[2016-12-01] MEDS: methylPREDNISolone INJ 125 MG/2 ML VIAL (J2930) IV SCH ×2 (08:38→16:31)
[2016-12-01] MEDS: PANTOPRAZOLE 40MG INJ (PROTONIX) (C9113) IV SCH ×2 (08:38→21:41)
[2016-12-01] MEDS: DIGOXIN 0.125 MG TAB PO SCH (08:38)
[2016-12-01] MEDS: ENOXAPARIN 30 MG/0.3 ML SYR (J1650) SC SCH (08:39)
[2016-12-01] MEDS: DOCUSATE SODIUM 100 MG CAP PO SCH ×2 (08:39→21:41)
[2016-12-01] MEDS: NS 1,000 ML IV SCH (11:31)
[2016-12-01] MEDS: HALOPERIDOL 5 MG/ML VIAL (J1630) IV PRN ×2 (16:01→23:29)
--- NOTE | 2016-12-01 16:16 | IPNPDOC ---
Subjective Date Seen The patient was seen on 12/01/16. Subjective Chief Complaint/HPI The patient is a 86-year-old female admitted with a reason for visit of Gi Bleed. Events since last encounter Patient is very agitated this afternoon; she is refusing to sit in bed. ROS is limited due to patient's agitation and confusion. Musculoskeletal: Reports: Back Pain Objective Physical Examination General Exam: Positive: Alert, Moderate Distress ENT Exam: Positive: Mucous membr. moist/pink Chest Exam: Positive: Normal air movement Heart Exam: Positive: Normal S1, Normal S2, Rate Normal Abdomen Exam: Positive: Normal bowel sounds, Soft, Negative: Tenderness Extremity Exam: Negative: Edema Neuro Exam: Positive: Other (exam difficult to perform due to patient's agitation and confusion; she does not react when back or hips are palpated) Psych Exam: Negative: Memory Intact, Mental status NL, Oriented x 3 Assessment /Plan Problems (1) Low back pain Status: Acute Response to Treatment: Uncontrolled Discussed With: Patient Problem Specific Plan: Monitor Clinically Problem Text: 12/01 - Patient is c/o "bad pain" but does not seem to be at all debilitated by this; she is getting in out of bed and her chair without difficulty and walking rapidly around the floor. I am uncertain if some of her pain concerns are related to her dementia. I am also concerned that her morphine is contributing to her confusion - I asked her nurse to try to use PO medications and minimize usage of her IV morphine. CT L spine with moderate disease, she does have some nerve compression but is not c/o of neuropathic radiating symptoms. (2) RENITA positive Status: Acute Problem Text: 12/01: patient required less pain medication yesterday but has required quite a few doses of morphine today. I am worried that steroids may be contributing to her agitation and confusion. I will decrease to PO steroids daily. 11/30 - RENITA 1:640 homogenous pattern on 11/18/2016 labs drawn as an outpatient. Will trial steroids today. Solumedrol 80 mg IV q 8 hrs ordered. D/W daughter: no prior hx of lupus, RA, autoimmune d/o. Agreeable to steroid trial. (3) GI bleed Status: Acute Response to Treatment: Stable Problem Specific Plan: Monitor Clinically, Repeat Labs Problem Text: 11/30/2016: Hgb stable. No BM x 2 days. bowel regimen ordered. monitor. HO + but no change of hgb since admission 11/29 14.2 11/18/16 hgb 14.2 No stool since admission (4) Chronic a-fib Status: Acute Problem Text: Xarelto on hold rate controlled on HD metoprolol/dig (5) Abdominal pain Status: Acute Response to Treatment: Stable, Improving Problem Specific Plan: Monitor Clinically Problem Text: Patient denies pain today though she is quite agitated; no tenderness on exam though exam is limited by agitation. (6) Dementia Status: Chronic Response to Treatment: Stable Problem Specific Plan: Monitor Clinically (7) HTN (hypertension) Status: Chronic Response to Treatment: Stable Plan/VTE VTE Prophylaxis Ordered?: Yes VS, I&O, 24H, Fishbone Vital Signs/I&O Vital Signs Date Time Temp Pulse Resp B/P Pulse Ox O2 Delivery O2 Flow Rate FiO2 12/01/16 14:06 16 12/01/16 11:36 77 180/100 12/01/16 06:00 96.7 94 Room Air I&O- Last 24 Hours up to 6 AM 12/01/16 06:00 Intake Total 2010 ml Output Total 977 ml Balance 1033 ml Laboratory Data 24H LABS Laboratory Tests 2 12/01/16 06:50: Blood Urea Nitrogen 13, Creatinine 0.78, Sodium Level 138, Potassium Level 4.1, Chloride Level 104, Carbon Dioxide Level 25, Calcium Level 9.2, Aspartate Amino Transf (AST/SGOT) 35, Alanine Aminotransferase (ALT/SGPT) 37, Alkaline Phosphatase 80, Total Bilirubin 1.1H, Total Protein 7.5, Albumin 3.5, Albumin/ Globulin Ratio 0.88L, Anion Gap 9, Glomerular Filtration Rate > 60.0 CBC/BMP Laboratory Tests 12/01/16 06:50 Calcium Level 9.2, Aspartate Amino Transf (AST/SGOT) 35, Alanine Aminotransferase (ALT/SGPT) 37, Alkaline Phosphatase 80, Total Bilirubin 1.1 H, Total Protein 7.5, Albumin 3.5 Microbiology Microbiology 11/30/16 Stool Occult Blood (DELILAH) - Final, Complete 11/28/16 Urine Culture - Final, Complete Strep Gallolyticus Ssp Elleu REMBERTO GRANADOS MD Dec 01, 2016 16:16
[2016-12-01] MEDS: predniSONE 20 MG TAB PO SCH ×2 (16:31→17:25)
[2016-12-01 18:25] VITALS: BP 208/102
[2016-12-01] MEDS: amLODIPine 5 MG TAB PO SCH (18:40)
[2016-12-01 19:29] VITALS: BP 212/110
[2016-12-01 20:15] VITALS: BP 198/108
[2016-12-01 21:05] VITALS: BP 174/98
[2016-12-01] MEDS: MEMANTINE 5MG TABLET (NAMENDA) PO SCH (21:41)
[2016-12-01] MEDS: SENNA 8.6 MG TAB (SENOKOT) PO SCH (21:41)
[2016-12-01 22:00] VITALS: BP 170/92
[2016-12-02] MEDS ORDERED: LORazepam 2 MG/ML VIAL (J2060) IV STA (00:17)
[2016-12-02 00:30] VITALS: BP 200/118
[2016-12-02] MEDS: METOPROLOL TART 50 MG TAB PO SCH ×3 (00:31→11:14)
[2016-12-02 01:45] VITALS: BP 152/78
[2016-12-02] MEDS: LEVOTHYROXINE 0.088 MG TAB (88 MCG) PO SCH (05:53)
[2016-12-02 06:00] VITALS: BP 182/110
[2016-12-02 06:48] LABS: MEAN CORPUSCULAR HEMOGLOBIN 31.6 pg (27.0-33.0); MEAN CORPUSCULAR HGB CONC 33.4 g/dl (32.0-36.5); MEAN CORPUSCULAR VOLUME 94.7 fl (80.0-96.0); RED CELL DISTRIBUTION WIDTH 13.4 % (11.5-14.5); WHITE BLOOD COUNT 16.4 K/mm3 (4.0-10.0)
[2016-12-02 07:00] LABS: ALBUMIN 3.6 GM/DL (3.2-5.2); ALKALINE PHOSPHATASE 89 U/L (45-117); ALT/SGPT 80 U/L (12-78); ANION GAP 9 MEQ/L (8-16); AST/SGOT 72 U/L (15-37); BILIRUBIN,TOTAL 1.1 MG/DL (0.2-1.0); BLOOD UREA NITROGEN 16 MG/DL (7-18); CALCIUM LEVEL 9.9 MG/DL (8.8-10.2); CARBON DIOXIDE LEVEL 28 MEQ/L (21-32); CHLORIDE LEVEL 105 MEQ/L (98-107); CREATININE FOR GFR 0.82 MG/DL (0.55-1.02); GLOMERULAR FILTRATION RATE > 60.0 (>32); GLUCOSE, FASTING 137 MG/DL (83-110); POTASSIUM SERUM 4.2 MEQ/L (3.5-5.1); SODIUM LEVEL 142 MEQ/L (136-145); TOTAL PROTEIN 7.6 GM/DL (6.4-8.2)
[2016-12-02] MEDS: DOCUSATE SODIUM 100 MG CAP PO SCH (08:50)
[2016-12-02] MEDS: PANTOPRAZOLE 40MG INJ (PROTONIX) (C9113) IV SCH (08:50)
[2016-12-02] MEDS: predniSONE 20 MG TAB PO SCH (08:50)
[2016-12-02] MEDS: DIGOXIN 0.125 MG TAB PO SCH (08:51)
[2016-12-02] MEDS: amLODIPine 5 MG TAB PO SCH (08:51)
[2016-12-02] MEDS: ENOXAPARIN 30 MG/0.3 ML SYR (J1650) SC SCH (09:00)
[2016-12-02] MEDS ORDERED: COLA100C PO (10:35)
[2016-12-02] MEDS ORDERED: AMLO5TAB2 PO (10:35)
[2016-12-02 11:14] VITALS: BP 172/77
--- NOTE | 2016-12-02 12:02 | CR ---
DATE OF CONSULTATION: 12/02/2016 REQUESTING SPEECH LANGUAGE ASSISTANT: Evelin Jimenez MD REASON FOR CONSULTATION: Intractable back pain. HISTORY OF PRESENT ILLNESS: This is an 86-year-old female that was initially evaluated for gastrointestinal (GI) bleed secondary to some darker stools. There was also a concern about some heightened back pain in a patient with a history of chronic lumbar pain . She is a poor historian with a history of dementia. She is denying any discomfort today and states that she just wants to "get out" in her words. She is denying any difficulty walking, unsteadiness or radiating leg pain. She did not comment on bowel or bladder issues when asked, but sprung right up out of bed and went to the bathroom unassisted. She has a history of lumbar x-rays and most recently CT. Findings were consistent with spondylosis, degenerative disk disease, spondylolisthesis and old L1 compression fracture. I generally agree with these findings and did review films dating back to May 2016, which showed this compression injury. It is also noted that Dr. Araya had previously seen her for the back and prescribed some lidocaine cream. ALLERGIES/ADVERSE REACTIONS: 1. ANTIHISTAMINES. 2. CHLORPHENIRAMINE. 3. LORATADINE. 4. CEFUROXIME. 5. CETIRIZINE. 6. DIPHENHYDRAMINE. 7. SULFA drugs. 8. SULFA drugs cross reactors. MEDICAL PROBLEM LIST: Was not obtainable so I reviewed Dr. Simon's note from 11/28/2016 and that showed: 1. Hypothyroidism. 2. Hypertension. 3. Dementia. 4. Obstructive sleep apnea (MORENITA). 5. Chronic low back pain. 6. Hyperlipidemia. 7. Gastroesophageal reflux disease. 8. Vitamin D deficiency. 9. Atrial fibrillation. 10. L1 compression fracture. PAST SURGICAL HISTORY: Appendectomy. Cholecystectomy. Colonoscopy. Cataract surgery. PHYSICAL EXAMINATION: Blood pressure 180/100, pulse 77, respirations 16, temperature 97.6, pulse oximetry 94. This is as of 12/01/2016. She is an agitated elderly female that is resting in bed lateral decubitus. She is alert and orientated times three. Mood agitated. The patient was awoken. She would not allow me to examine her back, but did sprain right out of bed ambulating steady without assistive device, went to the bathroom on her own. I tried to communicate with her and she stated she was doing fine. On psych exam, the patient is denying back pain when she clearly was admitted for acute recurrent back pain. ASSESSMENT: Low back pain with a history of chronic low back pain, underlying lumbar spondylosis, degenerative disc disease, spondylolisthesis and an old L1 compression fracture. This is overlapping in a patient with dementia who is now denying any back discomfort. RECOMMENDATIONS: I was able to speak with Stephanie Veliz, who has been actively involved with the patient's care. I am not sure that the patient really requires a back brace, which would be a [place] type for compression injury. Additionally , I do not think she would tolerate it well. Further imaging considerations would include lumbar MRI, which once again would be a difficult task since the patient is fairly noncompliant.It seems that this is more of a dementia issue. Though if her back pain returned and lumbar MRI would not be unreasonable. We thank you for the opportunity to participate with Mrs. Rangel's care and encourage our contact if there is any orthopedic issues. CAROLYNN
--- NOTE | 2016-12-02 12:40 | CR ---
DATE OF CONSULTATION: 12/02/[address] GRANADOS CHIEF COMPLAINT: Back pain. This is an addendum to a dictation that was done by Sadiq Rae, our physician assistant winemaker (BELLA). Essentially, this is an 86-year-old with history of chronic low back pain. She has actually had an old injury to her back years ago and was seen recently by Dr. Araya in the office. MRI scan was ordered, but has yet to be obtained. She was admitted to the hospital several days ago for among other things this increasing back pain. It sounds as though her pain has been doing somewhat better with the pain medication. She has had some occasional leg pain, but the family member felt this could have been related to just sitting for prolonged periods of time. She also has some history of GI bleed during this hospitalization. She has multiple allergies, including antihistamines, chlorpheniramine, loratadine, cefuroxime, Cetirizine, diphenhydramine, and sulfa drugs. Past medical history is notable for hypothyroidism, hypertension, dementia, obstructive sleep apnea, back pain, hyperlipidemia, reflux, vitamin D, atrial fibrillation, L1 compression fracture. On examination, she is resting comfortably currently. I obtained the history from the family member, I believe the daughter. She is grossly neurologically intact. She is moving her extremities well. The CT scan showed evidence of some degenerative changes. There is probably some foraminal narrowing. No acute findings. It looks like there is an old L1 compression fracture. I talked to the family about the options and have explained that what I think would be reasonable is to try to get her a lumbosacral corset if we can. If that is helpful then we can continue using that. The family wonders whether she would be willing to use it. She may be a candidate for epidural steroid injections. I do think that we should have her follow up with Dr. Araya in a week or so in the office. The family is going to contact our office on Monday. If the patient still having a lot of pain, we can proceed with the scheduling of the MRI scan which apparently has been approved. They also are to let us know or present to the emergency room if she has worsening symptoms, bowel or bladder changes, weakness, etc.
--- NOTE | 2016-12-03 15:27 | DSES ---
DATE OF ADMISSION: 11/28/2016 DATE OF DISCHARGE: 12/02/2016 PRIMARY CARE PROVIDER: Miracle Chan NP and Ottoniel Dubois MD HISTORY: This is an 86-year-old female patient who was brought to the [facility] Emergency Room with acute on chronic low back pain increased for approximately two weeks prior. She had been seen by Dr. Araya who prescribed lidocaine cream. Pain persisted and she came to the emergency room for evaluation. Also was noted to have black stools with abdominal pain the day prior also associated with diarrhea, one month of decreased appetite and decreased weight. The patient was admitted also for gastrointestinal (GI) bleeding and low back pain. During her hospitalization, she had a negative stool occult blood and her hemoglobin remained stable. Given there was concern about her back pain, she was started initially on intravenous (IV) morphine as well as Percocet. The patient suffered increased confusion and therefore we asked the nursing staff to back off on these medications. The patient remains confused, although she is ambulating and getting up and moving independently. She did have confusion and combativeness in the night, resulting in administration of Ativan and Haldol and family being called into bedside, they were able to calm the patient back down. I think her dementia has really become profoundly worse during her hospitalization. She did have lab work done this morning with a white blood cell count which bumped to 16,000, although I think that was associated with an acute stressful incident overnight as well as receiving some steroids, four doses of 80 mg of Solu-Medrol, which were initiated on 11/30/2016. She is not showing any other signs of infection. She did have a urinalysis which was without any significant findings. Urine culture grew Streptococcus gallolyticus, which was likely a contaminant. I will repeat a urine culture on her before she leaves today, especially given that she has had such significant episodes of confusion. Her daughter is at bedside this morning, Rosi Clifton. I have spoken with her about her mother's current situation. She has asked for a back brace or suggested a back brace. I spoke with Sadiq Rae from orthopedics, who consulted with Dr. Delgado. They do not feel as though the brace will give any significant benefit to the patient and given her confusion might, in fact, cause more of a problem. The patient this morning is telling her daughter that she would refuse to wear it and therefore, the daughter elected not to pursue this option further. The patient is also ambulating about the room freely. DISCHARGE DIAGNOSES: Include: 1. Acute low back pain. 2. Chronic atrial fibrillation. 3. Dementia. 4. Hypertension. DISCHARGE MEDICATIONS: Include: - amlodipine 5 mg by mouth daily - docusate sodium 100 mg by mouth twice a day - Tylenol 650 mg every 6 hours as needed for pain - albuterol sulfate 2.5 mg inhaled every 4 hours as needed for shortness of breath - artificial tears two drops each eye as needed for dry eyes - Caltrate 600 mg once daily - digoxin 0.125 mg daily - Aricept 10 mg daily - duloxetine 30 mg by mouth daily - Ensure four times daily - ferrous gluconate 325 mg twice daily - furosemide 80 mg daily - levothyroxine 88 mcg every other day, 100 mcg every other day - lisinopril 2.5 mg daily - Namenda 5 mg by mouth nightly - metoprolol 100 mg by mouth twice a day - Xarelto 15 mg by mouth nightly DISCHARGE PLAN: Followup with Miracle Wylie in 1 week. Activity should be as tolerated. Diet should be regular. I have discussed with Rosi Clifton my recommendations in terms of 24-hour care for the patient, which she agrees to provide. She is hopeful that her mother's dementia and mental status will improve over the weekend, although if it does not, she will rely on her brother to assist with 24-hour coverage for her at home. She would like a [facility] home health referral.
== END 2016-12-02 12:35 | disposition home health service (06) | DRG 379 ==
LOC: M ED 11:43 → M ED INP 15:45 → M ICU 20:09 → M MSPAV 11-29 11:48
PROVIDERS: ADMIT Internal Medicine; ATTEND Family Medicine
DX: K92.2 Gastrointestinal hemorrhage, unspecified (principal); M54.5 Low back pain; E03.9 Hypothyroidism, unspecified; I10 Essential (primary) hypertension; F03.90 Unspecified dementia, unspecified severity, without behavioral disturbance, psychotic disturbance, mood disturbance, and anxiety; G47.33 Obstructive sleep apnea (adult) (pediatric); J30.9 Allergic rhinitis, unspecified; E78.5 Hyperlipidemia, unspecified; K21.9 Gastro-esophageal reflux disease without esophagitis; E55.9 Vitamin D deficiency, unspecified; I48.2 Chronic atrial fibrillation; E87.6 Hypokalemia; Z79.01 Long term (current) use of anticoagulants; Z79.899 Other long term (current) drug therapy; Z88.2 Allergy status to sulfonamides; Z88.8 Allergy status to other drugs, medicaments and biological substances; Z88.1 Allergy status to other antibiotic agents

== ENCOUNTER → 2016-12-29 | Outpatient (CLI) | payer MEDICARE, MEDICAID ==
[~2016-12-29] MED LIST changes: +AMLO5TAB2 PO; +ARTI99.0 OU; +COLA100C3 PO; +DULO1CAP2 PO; +FERR325T3 PO; +FERR325T69 PO; +LEVO100T5 PO; +LIDO1CRE2 EXT; +METO100T PO; +NAME5TAB13 PO
--- NOTE | 2016-12-29 19:06 | REP ---
Right elbow for views: There are no comparisons. There is no fracture or dislocation. There is osteoarthritis between the scaphoid and multangular ossicles and osteoarthritis between the multangular ossicles and thumb metacarpal. The remainder of the carpal joint spaces are normal. There is diffuse demineralization. There is soft tissue edema dorsally. Impression: Osteoarthritis and dorsal soft tissue edema. No fracture or dislocation Signed by Hugh Michael MD 12/29/2016 06:57 P
== END ==
LOC: M WUC 18:24
PROVIDERS: ATTEND Physician Assistant
DX: M19.031 Primary osteoarthritis, right wrist (principal)

== ENCOUNTER 2017-03-18 17:46 | Emergency (ER) | payer MEDICARE, MEDICAID ==
[~2017-03-18] VITALS: Ht 144.8 cm; Wt 70.3 kg
[~2017-03-18 17:46] MED LIST changes: -ACET-654 PO; +ACET1TAB17 PO; -ARIC10TA PO; +ARIC1TAB2 PO; -COLA100C3 PO; +COLA100C5 PO; +FERR1TAB8 PO; -FERR325T PO; -METO100T PO; +METO100T5 PO
[2017-03-18] MEDS ORDERED: MUCI1CAP PO (17:58)
[2017-03-18 18:58] LABS: MEAN CORPUSCULAR HEMOGLOBIN 32.3 pg (27.0-33.0); MEAN CORPUSCULAR HGB CONC 33.6 g/dl (32.0-36.5); MEAN CORPUSCULAR VOLUME 96.3 fl (80.0-96.0); WHITE BLOOD COUNT 12.8 K/mm3 (4.0-10.0)
[2017-03-18] MEDS ORDERED: FUROSEMIDE 100 MG/10 ML VIAL (J1940) IV ONE (19:00)
[2017-03-18 19:25] LABS: ALBUMIN 3.8 GM/DL (3.2-5.2); ALKALINE PHOSPHATASE 102 U/L (45-117); ALT/SGPT 19 U/L (12-78); ANION GAP 7 MEQ/L (8-16); AST/SGOT 20 U/L (15-37); BILIRUBIN,TOTAL 1.5 MG/DL (0.2-1.0); BLOOD UREA NITROGEN 14 MG/DL (7-18); CALCIUM LEVEL 9.2 MG/DL (8.8-10.2); CARBON DIOXIDE LEVEL 33 MEQ/L (21-32); CHLORIDE LEVEL 97 MEQ/L (98-107); CREATININE FOR GFR 1.23 MG/DL (0.55-1.02); GLOMERULAR FILTRATION RATE 44.2 (>32); GLUCOSE, FASTING 118 MG/DL (83-110); SODIUM LEVEL 137 MEQ/L (136-145)
[2017-03-18] MEDS ORDERED: POTASSIUM CHLORIDE 10 MEQ SR TABLET PO ONE (19:45)
[2017-03-18] MEDS ORDERED: POTA20TA4 PO (20:27)
[2017-03-18 21:19] VITALS: BP 115/59
--- NOTE | 2017-03-19 07:28 | ECGEPIP ---
Stationary ECG Study [facility] - ED Test Date: 2017-03-18 Pat Name: DEA BYERS Department: Room: - Gender: F Residential Appliance Repair Technician: ct : 1930 Requested By: Phi River Order Number: [id number] Reading MD: Phi Franklin Measurements Intervals Marquez Rate: 58 P: MS: 0 QRS: -62 QRSD: 105 T: 68 QT: 423 QTc: 416 Interpretive Statements ATRIAL FIBRILLATION WITH SLOW VENTRICULAR RESPONSE PATTERN CONSISTENT WITH PULMONARY DISEASE LEFT ANTERIOR FASCICULAR BLOCK MINIMAL VOLTAGE CRITERIA FOR LVH, CONSIDER NORMAL VARIANT NONSPECIFIC ST & T-WAVE ABNORMALITY SIMILAR TO 11/28/16 Electronically Signed On 03-19-2017 7:28:04 EDT by Phi Franklin
--- NOTE | 2017-03-19 08:21 | REP ---
CHEST X-RAY PA AND LATERAL: 03/18/2017 COMPARISON: 11/28/2016, 10/09/2016. CLINICAL HISTORY: Dyspnea. FINDINGS: Two views show cardiomegaly with left atrial and left ventricular enlargement. There is venous hypertension present. Underlying interstitial fibrotic changes make early interstitial edema difficult to exclude. No effusion, lateral pleural thickening or dense consolidation. The aorta is calcified at the arch, mildly tortuous but without aneurysm. Airway intact. Bony thoracic spine without acute compression deformity but marginal osteophytes and disc space narrowing, representing significant degenerative changes throughout its mid and lower course. All of this in the spine is stable. IMPRESSION: 1. Cardiomegaly with left atrial and ventricular enlargement, some venous hypertension noted. Early interstitial edema is difficult to exclude given fibrosis. No dense consolidation or effusion. Signed by Samir Herring MD 03/19/2017 10:37 A
== END 2017-03-18 21:21 | disposition home or self-care (01) ==
LOC: M ED 21:02
DX: I51.7 Cardiomegaly (principal); I48.2 Chronic atrial fibrillation; R94.31 Abnormal electrocardiogram [ECG] [EKG]; Z79.899 Other long term (current) drug therapy; Z79.01 Long term (current) use of anticoagulants; Z88.8 Allergy status to other drugs, medicaments and biological substances; Z88.1 Allergy status to other antibiotic agents; Z88.2 Allergy status to sulfonamides
CPT/HCPCS: 71020; 80053; 82550; 82553; 83880; 84484; 85027; 93005; 96374; 99284; J1940

== ENCOUNTER → 2017-04-15 | Outpatient (REF) | payer MEDICARE, MEDICAID ==
[~2017-04-15] MED LIST changes: +MUCI1CAP PO; +POTA20TA4 PO
== END ==
LOC: M LAB REF 08:27
PROVIDERS: ATTEND Physician Assistant
DX: R30.0 Dysuria (principal)

== ENCOUNTER → 2017-04-18 | Outpatient (REF) | payer MEDICARE, MEDICAID ==
[2017-04-18 15:28] LABS: URIC ACID 7.1 MG/DL (2.6-6.0)
== END ==
LOC: M LABDRAW1 13:45
PROVIDERS: ATTEND Nurse Practitioner Family
DX: E78.4 Other hyperlipidemia (principal); E03.9 Hypothyroidism, unspecified; E79.0 Hyperuricemia without signs of inflammatory arthritis and tophaceous disease; E55.9 Vitamin D deficiency, unspecified

== ENCOUNTER → 2017-07-25 | Outpatient (REF) | payer MEDICARE, MEDICAID | LOC: M SFHCCLAY 15:22 | PROVIDERS: ATTEND Nurse Practitioner Family | DX: N39.0 Urinary tract infection, site not specified (principal) | CPT/HCPCS: 81002; 87088; 87186; G0463 ==

== ENCOUNTER → 2017-08-02 | Outpatient (REF) | payer MEDICARE, MEDICAID ==
[2017-08-02 17:23] LABS: MEAN CORPUSCULAR HGB CONC 33.1 g/dl (32.0-36.5); MEAN CORPUSCULAR VOLUME 93.6 fl (80.0-96.0); PLATELET COUNT, AUTOMATED 401 10^3/uL (150-450); RED CELL DISTRIBUTION WIDTH 13.7 % (11.5-14.5); WHITE BLOOD COUNT 10.2 10^3/uL (4.0-10.0)
[2017-08-02 18:00] LABS: ALBUMIN 4.2 GM/DL (3.2-5.2); ALBUMIN/GLOBULIN RATIO 1.05 (1.00-1.93); BILIRUBIN,TOTAL 1.3 MG/DL (0.2-1.0); CALCIUM LEVEL 9.7 MG/DL (8.8-10.2); CREATININE FOR GFR 1.15 MG/DL (0.55-1.02); GLOMERULAR FILTRATION RATE 47.6 (>32); POTASSIUM SERUM 4.5 MEQ/L (3.5-5.1); TOTAL PROTEIN 8.2 GM/DL (6.4-8.2)
== END ==
LOC: M SFHCCLAY 13:29
PROVIDERS: ATTEND Nurse Practitioner Family
DX: I10 Essential (primary) hypertension (principal); E78.4 Other hyperlipidemia; E03.9 Hypothyroidism, unspecified; E55.9 Vitamin D deficiency, unspecified; Z23 Encounter for immunization
CPT/HCPCS: 80053; 80061; 82306; 84443; 84550; 85027; 90662; G0008; G0463

== ENCOUNTER → 2017-12-20 | Outpatient (REF) | payer MEDICARE, MEDICAID ==
[2017-12-20 16:54] LABS: TOTAL 25(OH) VITAMIN D 33.2 NG/ML (30.0-100.0)
[2017-12-20 17:01] LABS: CHOLESTEROL LEVEL 213 MG/DL (<200); HDL CHOLESTEROL 25 MG/DL (>40); LDL CHOLESTEROL 134.8 MG/DL (<100); NON-HDL-C 188 MG/DL; THYROID STIMULATING HORMONE 0.329 uIU/ML (0.358-3.740); TRIGLYCERIDES LEVEL 266 MG/DL (<150); URIC ACID 12.3 MG/DL (2.6-6.0)
== END ==
LOC: M SFHCCLAY 13:07
DX: E78.4 Other hyperlipidemia (principal); E03.9 Hypothyroidism, unspecified; E79.0 Hyperuricemia without signs of inflammatory arthritis and tophaceous disease; E55.9 Vitamin D deficiency, unspecified
CPT/HCPCS: 84443

== ENCOUNTER 2018-01-04 16:55 | Inpatient (IN) | payer MEDICARE, MEDICAID ==
[2018-01-04 19:14] LABS: BASO % 0.2 % (0.0-1.0); EOS # 0.6 10^3/uL (0.0-0.50); HEMATOCRIT 39.6 % (36.0-47.0); HEMOGLOBIN 13.7 g/dl (12.0-15.5); IMMATURE GRANULOCYTE % 0.5 % (0-3.0); LYMPH # 0.8 10^3/uL (1.5-4.5); LYMPH % 8.7 % (24.0-44.0); MEAN CORPUSCULAR HEMOGLOBIN 32.1 pg (27.0-33.0); MEAN CORPUSCULAR HGB CONC 34.6 g/dl (32.0-36.5); MEAN CORPUSCULAR VOLUME 92.7 fl (80.0-96.0); MONO # 0.8 10^3/uL (0.0-0.8); MONO % 9.4 % (0.0-5.0); NEUTROPHILS # 6.5 10^3/uL (1.8-7.7); NEUTROPHILS % 74.2 % (36.0-66.0); PLATELET COUNT, AUTOMATED 287 10^3/uL (150-450); RED BLOOD COUNT 4.27 10^6/uL (4.00-5.40); RED CELL DISTRIBUTION WIDTH 13.8 % (11.5-14.5); WHITE BLOOD COUNT 8.8 10^3/uL (4.0-10.0)
[2018-01-04] MEDS: NS 1,000 ML IV ×2 (19:15→21:18)
[2018-01-04 19:33] LABS: ALBUMIN/GLOBULIN RATIO 0.87 (1.00-1.93); ALKALINE PHOSPHATASE 76 U/L (45-117); ALT/SGPT 20 U/L (12-78); ANION GAP 10 MEQ/L (8-16); AST/SGOT 18 U/L (7-37); BILIRUBIN,DIRECT 0.3 MG/DL (0.0-0.2); BILIRUBIN,TOTAL 1.2 MG/DL (0.2-1.0); BLOOD UREA NITROGEN 78 MG/DL (7-18); CALCIUM LEVEL 9.7 MG/DL (8.8-10.2); CARBON DIOXIDE LEVEL 28 MEQ/L (21-32); CHLORIDE LEVEL 92 MEQ/L (98-107); CPK CREATINE PHOSPHOKINASE 124 U/L (26-192); CREATININE FOR GFR 3.46 MG/DL (0.55-1.30); FREE T4 1.64 NG/DL (0.76-1.46); GLOMERULAR FILTRATION RATE 13.4 (>32); GLUCOSE, FASTING 134 MG/DL (70-100); POTASSIUM SERUM 4.9 MEQ/L (3.5-5.1); SODIUM LEVEL 130 MEQ/L (136-145); TOTAL PROTEIN 8.6 GM/DL (6.4-8.2); TROPONIN I 0.03 NG/ML (< 0.10)
[2018-01-04 19:38] LABS: CK-MB VALUE MASS 1.8 NG/ML (<3.6); MB/CK RELATIVE INDEX 1.45 (< OR =4); THYROID STIMULATING HORMONE 0.371 uIU/ML (0.358-3.740)
[2018-01-04 20:08] LABS: KETONE, URINE AUTO RFX NEGATIVE (NEGATIVE); LEUKOCYTE ESTERASE UR AUTO RFX NEGATIVE (NEGATIVE); NITRITE, URINE AUTO RFX NEGATIVE (NEGATIVE); RBC, URINE AUTO RFX 0 /HPF (0-3); SPECIFIC GRAVITY UR AUTO RFX 1.011 (1.002-1.035); SQUAM EPITHELIAL CELL UR AURFX 0 /HPF (0-6); WBC, URINE AUTO RFX 0 /HPF (0-3)
[2018-01-04 20:24] LABS: LACTIC ACID SEPSIS PROTOCOL 1.4 MMOL/L (0.4-2.0)
[2018-01-04] MEDS ORDERED: amLODIPine 5 MG TAB PO (21:00)
[2018-01-04] MEDS: DONEPEZIL 5 MG TAB PO (21:00)
[2018-01-04] MEDS ORDERED: ACETAMINOPHEN TAB 650MG DOSE (2X325MG) PO (21:30)
[2018-01-04] MEDS ORDERED: ONDANSETRON 4MG/2ML VIAL (J2405) IV (21:30)
[2018-01-04] MEDS ORDERED: PERCOCET 5MG/325MG TAB PO (21:30)
[2018-01-04] MEDS ORDERED: LIDOCAINE 4% CREAM 5GM (LMX4) TOP (22:45)
[2018-01-04] MEDS ORDERED: POLYVINYL ALCOHOL OPHTH SOLN 15 ML(LIQUITEARS) OU (22:45)
[2018-01-04] MEDS: HEPARIN SOD (PORCINE) 5000 UNITS/ML VIAL SC (23:19)
[2018-01-05] MEDS: LEVOTHYROXINE 100MCG TABLET (0.1MG) PO (05:13)
[2018-01-05] MEDS: NS 1,000 ML IV ×2 (05:38→09:04)
[2018-01-05] MEDS: HEPARIN SOD (PORCINE) 5000 UNITS/ML VIAL SC ×3 (05:53→21:56)
[2018-01-05 07:00] LABS: HEMATOCRIT 35.9 % (36.0-47.0); HEMOGLOBIN 12.1 g/dl (12.0-15.5); MEAN CORPUSCULAR HEMOGLOBIN 31.8 pg (27.0-33.0); MEAN CORPUSCULAR HGB CONC 33.7 g/dl (32.0-36.5); MEAN CORPUSCULAR VOLUME 94.2 fl (80.0-96.0); PLATELET COUNT, AUTOMATED 225 10^3/uL (150-450); RED BLOOD COUNT 3.81 10^6/uL (4.00-5.40); RED CELL DISTRIBUTION WIDTH 13.7 % (11.5-14.5); WHITE BLOOD COUNT 8.7 10^3/uL (4.0-10.0)
[2018-01-05 07:37] LABS: ALBUMIN 3.4 GM/DL (3.2-5.2); ALBUMIN/GLOBULIN RATIO 0.89 (1.00-1.93); ALKALINE PHOSPHATASE 63 U/L (45-117); ALT/SGPT 13 U/L (12-78); ANION GAP 9 MEQ/L (8-16); AST/SGOT 18 U/L (7-37); BILIRUBIN,DIRECT 0.3 MG/DL (0.0-0.2); BILIRUBIN,TOTAL 1.1 MG/DL (0.2-1.0); BLOOD UREA NITROGEN 72 MG/DL (7-18); CALCIUM LEVEL 8.8 MG/DL (8.8-10.2); CARBON DIOXIDE LEVEL 25 MEQ/L (21-32); CHLORIDE LEVEL 99 MEQ/L (98-107); CREATININE FOR GFR 2.85 MG/DL (0.55-1.30); GLOMERULAR FILTRATION RATE 16.7 (>32); GLUCOSE, FASTING 108 MG/DL (70-100); POTASSIUM SERUM 4.4 MEQ/L (3.5-5.1); SODIUM LEVEL 133 MEQ/L (136-145); TOTAL PROTEIN 7.2 GM/DL (6.4-8.2)
[2018-01-05] MEDS: METOPROLOL TARTRATE 100 MG TAB PO ×2 (09:05→21:00)
[2018-01-05] MEDS: DIGOXIN 0.125 MG TAB PO (09:05)
[2018-01-05] MEDS: ALLOPURINOL 300 MG TAB PO (09:05)
[2018-01-05 15:17] LABS: ANION GAP 7 MEQ/L (8-16); BLOOD UREA NITROGEN 62 MG/DL (7-18); CALCIUM LEVEL 8.6 MG/DL (8.8-10.2); CARBON DIOXIDE LEVEL 24 MEQ/L (21-32); CHLORIDE LEVEL 103 MEQ/L (98-107); CREATININE FOR GFR 2.42 MG/DL (0.55-1.30); GLOMERULAR FILTRATION RATE 20.2 (>32); GLUCOSE, FASTING 130 MG/DL (70-100); POTASSIUM SERUM 4.6 MEQ/L (3.5-5.1); SODIUM LEVEL 134 MEQ/L (136-145)
[2018-01-05] MEDS: MEMANTINE 5MG TABLET (NAMENDA) PO (21:00)
[2018-01-05] MEDS: amLODIPine 5 MG TAB PO (21:00)
[2018-01-05] MEDS: RIVAROXABAN 15 MG TAB (XARELTO) PO (21:56)
[2018-01-05] MEDS: DONEPEZIL 5 MG TAB PO (21:56)
[2018-01-05] MEDS: DULoxetine 30 MG CAP (CYMBALTA) PO (21:56)
[2018-01-06] MEDS: NS 1,000 ML IV ×4 (02:27→21:12)
[2018-01-06 04:05] LABS: HEMATOCRIT 33.1 % (36.0-47.0); HEMOGLOBIN 10.9 g/dl (12.0-15.5); MEAN CORPUSCULAR HEMOGLOBIN 31.1 pg (27.0-33.0); MEAN CORPUSCULAR HGB CONC 32.9 g/dl (32.0-36.5); MEAN CORPUSCULAR VOLUME 94.3 fl (80.0-96.0); PLATELET COUNT, AUTOMATED 228 10^3/uL (150-450); RED BLOOD COUNT 3.51 10^6/uL (4.00-5.40); RED CELL DISTRIBUTION WIDTH 14.1 % (11.5-14.5); WHITE BLOOD COUNT 7.2 10^3/uL (4.0-10.0)
[2018-01-06 04:27] LABS: ANION GAP 7 MEQ/L (8-16); BLOOD UREA NITROGEN 51 MG/DL (7-18); CALCIUM LEVEL 8.5 MG/DL (8.8-10.2); CARBON DIOXIDE LEVEL 24 MEQ/L (21-32); CHLORIDE LEVEL 109 MEQ/L (98-107); CREATININE FOR GFR 2.05 MG/DL (0.55-1.30); GLOMERULAR FILTRATION RATE 24.4 (>32); GLUCOSE, FASTING 89 MG/DL (70-100); POTASSIUM SERUM 4.3 MEQ/L (3.5-5.1); SODIUM LEVEL 140 MEQ/L (136-145)
[2018-01-06] MEDS: LEVOTHYROXINE 100MCG TABLET (0.1MG) PO (06:00)
[2018-01-06] MEDS: HEPARIN SOD (PORCINE) 5000 UNITS/ML VIAL SC ×3 (06:21→21:10)
[2018-01-06] MEDS: DIGOXIN 0.125 MG TAB PO (09:22)
[2018-01-06] MEDS: METOPROLOL TARTRATE 100 MG TAB PO ×2 (09:22→21:12)
[2018-01-06] MEDS: ALLOPURINOL 300 MG TAB PO (09:22)
[2018-01-06] MEDS: DONEPEZIL 5 MG TAB PO (21:10)
[2018-01-06] MEDS: DULoxetine 30 MG CAP (CYMBALTA) PO (21:10)
[2018-01-06] MEDS: RIVAROXABAN 15 MG TAB (XARELTO) PO (21:10)
[2018-01-06] MEDS: MEMANTINE 5MG TABLET (NAMENDA) PO (21:10)
[2018-01-06] MEDS: amLODIPine 5 MG TAB PO (21:11)
[2018-01-07] MEDS: ALBUTEROL SULFATE 2.5 MG/0.5 ML INH NEB SOLN INH ×2 (03:52→17:59)
[2018-01-07] MEDS ORDERED: FUROSEMIDE 40 MG/4 ML VIAL (J1940) As Ordered (04:03)
[2018-01-07] MEDS: FUROSEMIDE 40 MG/4 ML VIAL (J1940) IV (04:14)
[2018-01-07 05:05] LABS: ABG BASE EXCESS -4.2 (-2.0-2.0); ABG PARTIAL PRESSURE CO2 33.7 mmHg (35.0-45.0); ABG PARTIAL PRESSURE O2 65.6 mmHg (75.0-100.0); ABG STANDARD HCO3 20.9 MEQ/L (22.0-26.0); ABG pH (ARTERIAL) 7.391 UNITS (7.350-7.450)
[2018-01-07 05:20] LABS: HEMATOCRIT 33.7 % (36.0-47.0); HEMOGLOBIN 11.2 g/dl (12.0-15.5); MEAN CORPUSCULAR HEMOGLOBIN 31.3 pg (27.0-33.0); MEAN CORPUSCULAR HGB CONC 33.2 g/dl (32.0-36.5); MEAN CORPUSCULAR VOLUME 94.1 fl (80.0-96.0); PLATELET COUNT, AUTOMATED 248 10^3/uL (150-450); RED BLOOD COUNT 3.58 10^6/uL (4.00-5.40); RED CELL DISTRIBUTION WIDTH 14.2 % (11.5-14.5); WHITE BLOOD COUNT 11.4 10^3/uL (4.0-10.0)
[2018-01-07 05:40] LABS: CPK CREATINE PHOSPHOKINASE 86 U/L (26-192); TROPONIN I 0.06 NG/ML (< 0.10)
[2018-01-07 05:41] LABS: ALBUMIN 3.4 GM/DL (3.2-5.2); ALBUMIN/GLOBULIN RATIO 0.92 (1.00-1.93); ALKALINE PHOSPHATASE 71 U/L (45-117); ALT/SGPT 15 U/L (12-78); ANION GAP 8 MEQ/L (8-16); AST/SGOT 18 U/L (7-37); BILIRUBIN,TOTAL 1.2 MG/DL (0.2-1.0); BLOOD UREA NITROGEN 32 MG/DL (7-18); CALCIUM LEVEL 8.5 MG/DL (8.8-10.2); CARBON DIOXIDE LEVEL 21 MEQ/L (21-32); CHLORIDE LEVEL 112 MEQ/L (98-107); CK-MB VALUE MASS 1.8 NG/ML (<3.6); CREATININE FOR GFR 1.52 MG/DL (0.55-1.30); GLOMERULAR FILTRATION RATE 34.5 (>32); GLUCOSE, FASTING 154 MG/DL (70-100); MB/CK RELATIVE INDEX 2.09 (< OR =4); NT-PRO BNP 18540 PG/ML (<450); POTASSIUM SERUM 4.3 MEQ/L (3.5-5.1); SODIUM LEVEL 141 MEQ/L (136-145); TOTAL PROTEIN 7.1 GM/DL (6.4-8.2)
[2018-01-07] MEDS: LEVOTHYROXINE 100MCG TABLET (0.1MG) PO (06:00)
[2018-01-07] MEDS: HEPARIN SOD (PORCINE) 5000 UNITS/ML VIAL SC (06:00)
[2018-01-07] MEDS ORDERED: cefTRIAXone SOD 1 GM VIAL (J0696) IM (06:00)
[2018-01-07] MEDS: cefTRIAXone SOD 1 GM in D5W MINI-BAG PLUS 50 ML IV (06:47)
[2018-01-07] MEDS: ALLOPURINOL 300 MG TAB PO (09:34)
[2018-01-07] MEDS: DOXYCYCLINE HYCLATE 100 MG TAB PO ×2 (09:34→21:00)
[2018-01-07] MEDS: METOPROLOL TARTRATE 100 MG TAB PO ×2 (09:37→21:02)
[2018-01-07] MEDS: DIGOXIN 0.125 MG TAB PO (09:38)
[2018-01-07] MEDS: FUROSEMIDE 40 MG TAB PO (17:40)
[2018-01-07] MEDS: amLODIPine 5 MG TAB PO (21:00)
[2018-01-07] MEDS: DULoxetine 30 MG CAP (CYMBALTA) PO (21:00)
[2018-01-07] MEDS: MEMANTINE 5MG TABLET (NAMENDA) PO (21:02)
[2018-01-07] MEDS: RIVAROXABAN 15 MG TAB (XARELTO) PO (21:02)
[2018-01-07] MEDS: DONEPEZIL 5 MG TAB PO (21:02)
[2018-01-08] MEDS: LEVOTHYROXINE 100MCG TABLET (0.1MG) PO (05:23)
[2018-01-08] MEDS ORDERED: cefTRIAXone SOD 1 GM VIAL (J0696) IV (06:00)
[2018-01-08 06:37] LABS: HEMATOCRIT 31.6 % (36.0-47.0); HEMOGLOBIN 10.4 g/dl (12.0-15.5); MEAN CORPUSCULAR HGB CONC 32.9 g/dl (32.0-36.5); PLATELET COUNT, AUTOMATED 252 10^3/uL (150-450); RED BLOOD COUNT 3.36 10^6/uL (4.00-5.40); RED CELL DISTRIBUTION WIDTH 14.3 % (11.5-14.5); WHITE BLOOD COUNT 10.5 10^3/uL (4.0-10.0)
[2018-01-08 07:05] LABS: ANION GAP 7 MEQ/L (8-16); BLOOD UREA NITROGEN 26 MG/DL (7-18); CARBON DIOXIDE LEVEL 25 MEQ/L (21-32); CHLORIDE LEVEL 106 MEQ/L (98-107); CREATININE FOR GFR 1.44 MG/DL (0.55-1.30); GLOMERULAR FILTRATION RATE 36.7 (>32); GLUCOSE, FASTING 87 MG/DL (70-100); POTASSIUM SERUM 3.6 MEQ/L (3.5-5.1); SODIUM LEVEL 138 MEQ/L (136-145)
[2018-01-08] MEDS: cefTRIAXone SOD 1 GM in D5W MINI-BAG PLUS 50 ML IV (08:32)
[2018-01-08] MEDS: DOXYCYCLINE HYCLATE 100 MG TAB PO ×2 (08:33→22:15)
[2018-01-08] MEDS: ALLOPURINOL 300 MG TAB PO (08:33)
[2018-01-08] MEDS: FUROSEMIDE 40 MG TAB PO (08:33)
[2018-01-08] MEDS: METOPROLOL TARTRATE 100 MG TAB PO ×2 (08:33→22:15)
[2018-01-08] MEDS: DIGOXIN 0.125 MG TAB PO (08:34)
[2018-01-08] MEDS: FUROSEMIDE 20 MG TAB PO (19:06)
[2018-01-08] MEDS: MEMANTINE 5MG TABLET (NAMENDA) PO (22:14)
[2018-01-08] MEDS: DONEPEZIL 5 MG TAB PO (22:14)
[2018-01-08] MEDS: RIVAROXABAN 15 MG TAB (XARELTO) PO (22:14)
[2018-01-08] MEDS: POTASSIUM CHLORIDE 10 MEQ SR TABLET PO (22:14)
[2018-01-08] MEDS: DULoxetine 30 MG CAP (CYMBALTA) PO (22:15)
[2018-01-08] MEDS: amLODIPine 5 MG TAB PO (22:16)
[2018-01-09] MEDS: LEVOTHYROXINE 100MCG TABLET (0.1MG) PO (05:52)
[2018-01-09 06:15] LABS: HEMATOCRIT 31.2 % (36.0-47.0); HEMOGLOBIN 10.6 g/dl (12.0-15.5); MEAN CORPUSCULAR VOLUME 94.3 fl (80.0-96.0); PLATELET COUNT, AUTOMATED 239 10^3/uL (150-450); RED BLOOD COUNT 3.31 10^6/uL (4.00-5.40); RED CELL DISTRIBUTION WIDTH 14.3 % (11.5-14.5)
[2018-01-09 06:33] LABS: ANION GAP 4 MEQ/L (8-16); BLOOD UREA NITROGEN 21 MG/DL (7-18); CALCIUM LEVEL 8.9 MG/DL (8.8-10.2); CARBON DIOXIDE LEVEL 30 MEQ/L (21-32); CHLORIDE LEVEL 104 MEQ/L (98-107); CREATININE FOR GFR 1.28 MG/DL (0.55-1.30); GLOMERULAR FILTRATION RATE 42.1 (>32); GLUCOSE, FASTING 91 MG/DL (70-100); POTASSIUM SERUM 3.2 MEQ/L (3.5-5.1); SODIUM LEVEL 138 MEQ/L (136-145)
[2018-01-09] MEDS: cefTRIAXone SOD 1 GM in D5W MINI-BAG PLUS 50 ML IV (09:53)
[2018-01-09] MEDS: DIGOXIN 0.125 MG TAB PO (09:53)
[2018-01-09] MEDS: METOPROLOL TARTRATE 100 MG TAB PO ×2 (09:54→21:15)
[2018-01-09] MEDS: POTASSIUM CHLORIDE 10 MEQ SR TABLET PO ×3 (09:54→21:12)
[2018-01-09] MEDS: FUROSEMIDE 20 MG TAB PO ×2 (09:54→17:40)
[2018-01-09] MEDS: ALLOPURINOL 300 MG TAB PO (09:54)
[2018-01-09] MEDS: DOXYCYCLINE HYCLATE 100 MG TAB PO ×2 (09:55→21:16)
[2018-01-09] MEDS: MEMANTINE 5MG TABLET (NAMENDA) PO (21:12)
[2018-01-09] MEDS: DONEPEZIL 5 MG TAB PO (21:12)
[2018-01-09] MEDS: RIVAROXABAN 15 MG TAB (XARELTO) PO (21:12)
[2018-01-09] MEDS: amLODIPine 5 MG TAB PO (21:15)
[2018-01-09] MEDS: DULoxetine 30 MG CAP (CYMBALTA) PO (21:16)
[2018-01-10] MEDS: LEVOTHYROXINE 100MCG TABLET (0.1MG) PO (06:01)
[2018-01-10 06:26] LABS: HEMATOCRIT 30.1 % (36.0-47.0); HEMOGLOBIN 10.2 g/dl (12.0-15.5); MEAN CORPUSCULAR HGB CONC 33.9 g/dl (32.0-36.5); MEAN CORPUSCULAR VOLUME 91.5 fl (80.0-96.0); PLATELET COUNT, AUTOMATED 303 10^3/uL (150-450); RED BLOOD COUNT 3.29 10^6/uL (4.00-5.40); WHITE BLOOD COUNT 9.9 10^3/uL (4.0-10.0)
[2018-01-10 06:45] LABS: ANION GAP 8 MEQ/L (8-16); BLOOD UREA NITROGEN 18 MG/DL (7-18); CALCIUM LEVEL 8.7 MG/DL (8.8-10.2); CARBON DIOXIDE LEVEL 27 MEQ/L (21-32); CHLORIDE LEVEL 101 MEQ/L (98-107); GLOMERULAR FILTRATION RATE 45.3 (>32); GLUCOSE, FASTING 89 MG/DL (70-100); MAGNESIUM LEVEL 1.7 MG/DL (1.8-2.4); NT-PRO BNP 9511 PG/ML (<450); POTASSIUM SERUM 3.2 MEQ/L (3.5-5.1); SODIUM LEVEL 136 MEQ/L (136-145)
[2018-01-10] MEDS: cefTRIAXone SOD 1 GM in D5W MINI-BAG PLUS 50 ML IV (08:46)
[2018-01-10] MEDS: ALLOPURINOL 300 MG TAB PO (08:47)
[2018-01-10] MEDS: FUROSEMIDE 20 MG TAB PO ×2 (08:47→17:03)
[2018-01-10] MEDS: POTASSIUM CHLORIDE 10 MEQ SR TABLET PO ×3 (08:47→14:28)
[2018-01-10] MEDS: DOXYCYCLINE HYCLATE 100 MG TAB PO ×2 (08:47→20:43)
[2018-01-10] MEDS: DIGOXIN 0.125 MG TAB PO (08:53)
[2018-01-10] MEDS: METOPROLOL TARTRATE 100 MG TAB PO ×2 (08:54→20:46)
[2018-01-10] MEDS: MAG SULF 1GM/100ML (MAG RUN) 1 GM in APPROPRIATE DILUENT 1 EA IV (09:47)
[2018-01-10 11:57] LABS: CK-MB VALUE MASS 1.2 NG/ML (<3.6); CPK CREATINE PHOSPHOKINASE 23 U/L (26-192); MB/CK RELATIVE INDEX 5.21 (< OR =4); TROPONIN I 0.02 NG/ML (< 0.10)
[2018-01-10] MEDS: DONEPEZIL 5 MG TAB PO (20:43)
[2018-01-10] MEDS: DULoxetine 30 MG CAP (CYMBALTA) PO (20:46)
[2018-01-10] MEDS: RIVAROXABAN 15 MG TAB (XARELTO) PO (20:46)
[2018-01-10] MEDS: amLODIPine 5 MG TAB PO (20:47)
[2018-01-10] MEDS: MEMANTINE 5MG TABLET (NAMENDA) PO (20:47)
[2018-01-10] MEDS: ALBUTEROL SULFATE 2.5 MG/0.5 ML INH NEB SOLN INH (20:59)
[2018-01-11 06:44] LABS: HEMATOCRIT 31.8 % (36.0-47.0); HEMOGLOBIN 10.8 g/dl (12.0-15.5); MEAN CORPUSCULAR HEMOGLOBIN 31.4 pg (27.0-33.0); MEAN CORPUSCULAR VOLUME 92.4 fl (80.0-96.0); PLATELET COUNT, AUTOMATED 335 10^3/uL (150-450); RED BLOOD COUNT 3.44 10^6/uL (4.00-5.40); RED CELL DISTRIBUTION WIDTH 14.3 % (11.5-14.5); WHITE BLOOD COUNT 9.8 10^3/uL (4.0-10.0)
[2018-01-11] MEDS: LEVOTHYROXINE 100MCG TABLET (0.1MG) PO (06:45)
[2018-01-11 07:03] LABS: ANION GAP 7 MEQ/L (8-16); BLOOD UREA NITROGEN 18 MG/DL (7-18); CALCIUM LEVEL 8.9 MG/DL (8.8-10.2); CARBON DIOXIDE LEVEL 27 MEQ/L (21-32); CHLORIDE LEVEL 101 MEQ/L (98-107); CREATININE FOR GFR 1.31 MG/DL (0.55-1.30); GLUCOSE, FASTING 86 MG/DL (70-100); POTASSIUM SERUM 3.7 MEQ/L (3.5-5.1); SODIUM LEVEL 135 MEQ/L (136-145)
[2018-01-11] MEDS: FUROSEMIDE 20 MG TAB PO (09:04)
[2018-01-11] MEDS: cefTRIAXone SOD 1 GM in D5W MINI-BAG PLUS 50 ML IV (09:04)
[2018-01-11] MEDS: DIGOXIN 0.125 MG TAB PO (09:07)
[2018-01-11] MEDS: METOPROLOL TARTRATE 100 MG TAB PO ×2 (09:07→21:42)
[2018-01-11] MEDS: DOXYCYCLINE HYCLATE 100 MG TAB PO ×2 (09:07→21:42)
[2018-01-11] MEDS: ALLOPURINOL 300 MG TAB PO (09:07)
[2018-01-11] MEDS: CEFUROXIME 500 MG TAB PO ×2 (10:20→21:42)
[2018-01-11] MEDS: POTASSIUM CHLORIDE 10 MEQ SR TABLET PO (10:20)
[2018-01-11 13:52] LABS: DIGOXIN LEVEL 1.7 NG/ML (0.5-2.0)
[2018-01-11] MEDS: FUROSEMIDE 40 MG TAB PO (17:12)
[2018-01-11] MEDS: DULoxetine 30 MG CAP (CYMBALTA) PO (21:42)
[2018-01-11] MEDS: DONEPEZIL 5 MG TAB PO (21:42)
[2018-01-11] MEDS: RIVAROXABAN 15 MG TAB (XARELTO) PO (21:43)
[2018-01-11] MEDS: amLODIPine 5 MG TAB PO (21:43)
[2018-01-11] MEDS: MEMANTINE 5MG TABLET (NAMENDA) PO (21:43)
[2018-01-12] MEDS: LEVOTHYROXINE 100MCG TABLET (0.1MG) PO (06:00)
[2018-01-12 06:54] LABS: ANION GAP 10 MEQ/L (8-16); BLOOD UREA NITROGEN 21 MG/DL (7-18); CALCIUM LEVEL 9.1 MG/DL (8.8-10.2); CARBON DIOXIDE LEVEL 29 MEQ/L (21-32); CHLORIDE LEVEL 96 MEQ/L (98-107); CREATININE FOR GFR 1.33 MG/DL (0.55-1.30); GLOMERULAR FILTRATION RATE 40.3 (>32); GLUCOSE, FASTING 86 MG/DL (70-100); POTASSIUM SERUM 3.9 MEQ/L (3.5-5.1); SODIUM LEVEL 135 MEQ/L (136-145)
[2018-01-12] MEDS: DOXYCYCLINE HYCLATE 100 MG TAB PO ×2 (08:51→20:21)
[2018-01-12] MEDS: FUROSEMIDE 40 MG TAB PO ×2 (08:51→16:19)
[2018-01-12] MEDS: CEFUROXIME 500 MG TAB PO ×2 (08:51→20:21)
[2018-01-12] MEDS: METOPROLOL TARTRATE 100 MG TAB PO ×2 (08:51→20:20)
[2018-01-12] MEDS: ALLOPURINOL 300 MG TAB PO (08:52)
[2018-01-12] MEDS: MIRALAX *UNIT DOSE* 17GM PACKET PO (16:19)
[2018-01-12] MEDS: RIVAROXABAN 15 MG TAB (XARELTO) PO (20:20)
[2018-01-12] MEDS: MEMANTINE 5MG TABLET (NAMENDA) PO (20:21)
[2018-01-12] MEDS: DULoxetine 30 MG CAP (CYMBALTA) PO (20:21)
[2018-01-12] MEDS: DONEPEZIL 5 MG TAB PO (20:21)
[2018-01-12] MEDS: SENOKOT S TAB PO (20:21)
[2018-01-12] MEDS: amLODIPine 5 MG TAB PO (20:21)
[2018-01-13] MEDS: LEVOTHYROXINE 100MCG TABLET (0.1MG) PO (05:55)
[2018-01-13 06:16] LABS: ANION GAP 9 MEQ/L (8-16); BLOOD UREA NITROGEN 26 MG/DL (7-18); CALCIUM LEVEL 9.4 MG/DL (8.8-10.2); CARBON DIOXIDE LEVEL 29 MEQ/L (21-32); CHLORIDE LEVEL 97 MEQ/L (98-107); CREATININE FOR GFR 1.42 MG/DL (0.55-1.30); GLOMERULAR FILTRATION RATE 37.3 (>32); GLUCOSE, FASTING 86 MG/DL (70-100); MAGNESIUM LEVEL 2.4 MG/DL (1.8-2.4); POTASSIUM SERUM 3.8 MEQ/L (3.5-5.1); SODIUM LEVEL 135 MEQ/L (136-145)
[2018-01-13] MEDS: FUROSEMIDE 40 MG TAB PO (09:38)
[2018-01-13] MEDS: CEFUROXIME 500 MG TAB PO ×2 (09:38→20:22)
[2018-01-13] MEDS: DOXYCYCLINE HYCLATE 100 MG TAB PO ×2 (09:38→20:22)
[2018-01-13] MEDS: SENOKOT S TAB PO ×2 (09:38→20:22)
[2018-01-13] MEDS: DIGOXIN 0.125 MG TAB PO (09:38)
[2018-01-13] MEDS: ALLOPURINOL 300 MG TAB PO (09:39)
[2018-01-13] MEDS: MIRALAX *UNIT DOSE* 17GM PACKET PO (09:39)
[2018-01-13] MEDS: METOPROLOL TARTRATE 100 MG TAB PO ×2 (09:39→20:23)
[2018-01-13] MEDS: FUROSEMIDE 20 MG TAB PO (17:48)
[2018-01-13] MEDS: MEMANTINE 5MG TABLET (NAMENDA) PO (20:22)
[2018-01-13] MEDS: RIVAROXABAN 15 MG TAB (XARELTO) PO (20:23)
[2018-01-13] MEDS: amLODIPine 5 MG TAB PO (20:23)
[2018-01-13] MEDS: DONEPEZIL 5 MG TAB PO (20:24)
[2018-01-13] MEDS: DULoxetine 30 MG CAP (CYMBALTA) PO (20:24)
[2018-01-14] MEDS: LEVOTHYROXINE 100MCG TABLET (0.1MG) PO (06:04)
[2018-01-14 06:41] LABS: ANION GAP 7 MEQ/L (8-16); BLOOD UREA NITROGEN 26 MG/DL (7-18); CALCIUM LEVEL 9.5 MG/DL (8.8-10.2); CARBON DIOXIDE LEVEL 29 MEQ/L (21-32); CHLORIDE LEVEL 99 MEQ/L (98-107); CREATININE FOR GFR 1.47 MG/DL (0.55-1.30); GLOMERULAR FILTRATION RATE 35.9 (>32); GLUCOSE, FASTING 86 MG/DL (70-100); MAGNESIUM LEVEL 2.1 MG/DL (1.8-2.4); POTASSIUM SERUM 3.8 MEQ/L (3.5-5.1); SODIUM LEVEL 135 MEQ/L (136-145)
[2018-01-14] MEDS: CEFUROXIME 500 MG TAB PO (08:46)
[2018-01-14] MEDS: METOPROLOL TARTRATE 100 MG TAB PO ×2 (08:47→20:02)
[2018-01-14] MEDS: ALLOPURINOL 300 MG TAB PO (08:48)
[2018-01-14] MEDS: SENOKOT S TAB PO ×2 (08:48→20:01)
[2018-01-14] MEDS: FUROSEMIDE 40 MG TAB PO (08:48)
[2018-01-14] MEDS: MIRALAX *UNIT DOSE* 17GM PACKET PO (08:49)
[2018-01-14] MEDS: DOXYCYCLINE HYCLATE 100 MG TAB PO (09:00)
[2018-01-14] MEDS: amLODIPine 5 MG TAB PO (20:01)
[2018-01-14] MEDS: DULoxetine 30 MG CAP (CYMBALTA) PO (20:01)
[2018-01-14] MEDS: RIVAROXABAN 15 MG TAB (XARELTO) PO (20:01)
[2018-01-14] MEDS: DONEPEZIL 5 MG TAB PO (20:02)
[2018-01-14] MEDS: MEMANTINE 5MG TABLET (NAMENDA) PO (20:02)
[2018-01-15] MEDS: LEVOTHYROXINE 100MCG TABLET (0.1MG) PO (05:55)
[2018-01-15 06:12] LABS: ANION GAP 9 MEQ/L (8-16); BLOOD UREA NITROGEN 24 MG/DL (7-18); CALCIUM LEVEL 9.5 MG/DL (8.8-10.2); CARBON DIOXIDE LEVEL 31 MEQ/L (21-32); CHLORIDE LEVEL 94 MEQ/L (98-107); CREATININE FOR GFR 1.36 MG/DL (0.55-1.30); GLOMERULAR FILTRATION RATE 39.2 (>32); GLUCOSE, FASTING 93 MG/DL (70-100); POTASSIUM SERUM 3.7 MEQ/L (3.5-5.1); SODIUM LEVEL 134 MEQ/L (136-145)
[2018-01-15] MEDS: SENOKOT S TAB PO ×2 (09:25→22:00)
[2018-01-15] MEDS: ALLOPURINOL 300 MG TAB PO (09:25)
[2018-01-15] MEDS: METOPROLOL TARTRATE 100 MG TAB PO ×2 (09:27→22:01)
[2018-01-15] MEDS: MIRALAX *UNIT DOSE* 17GM PACKET PO (09:27)
[2018-01-15] MEDS: DIGOXIN 0.125 MG TAB PO (09:27)
[2018-01-15] MEDS: DULoxetine 30 MG CAP (CYMBALTA) PO (21:59)
[2018-01-15] MEDS: amLODIPine 5 MG TAB PO (22:00)
[2018-01-15] MEDS: RIVAROXABAN 15 MG TAB (XARELTO) PO (22:00)
[2018-01-15] MEDS: DONEPEZIL 5 MG TAB PO (22:00)
[2018-01-15] MEDS: MEMANTINE 5MG TABLET (NAMENDA) PO (22:00)
[2018-01-15] MEDS: CLOTRIMAZOLE 1% TOPICAL CREAM 30GM TOP (22:01)
[2018-01-16] MEDS: LEVOTHYROXINE 100MCG TABLET (0.1MG) PO (06:07)
[2018-01-16] MEDS: SENOKOT S TAB PO ×2 (09:26→19:59)
[2018-01-16] MEDS: ALLOPURINOL 300 MG TAB PO (09:26)
[2018-01-16] MEDS: CLOTRIMAZOLE 1% TOPICAL CREAM 30GM TOP ×2 (09:27→20:00)
[2018-01-16] MEDS: METOPROLOL TARTRATE 100 MG TAB PO ×2 (09:27→19:59)
[2018-01-16] MEDS: MIRALAX *UNIT DOSE* 17GM PACKET PO (09:27)
[2018-01-16 12:14] LABS: ANION GAP 6 MEQ/L (8-16); BLOOD UREA NITROGEN 25 MG/DL (7-18); CALCIUM LEVEL 9.7 MG/DL (8.8-10.2); CARBON DIOXIDE LEVEL 30 MEQ/L (21-32); CHLORIDE LEVEL 99 MEQ/L (98-107); CREATININE FOR GFR 1.39 MG/DL (0.55-1.30); GLOMERULAR FILTRATION RATE 38.3 (>32); GLUCOSE, FASTING 117 MG/DL (70-100); POTASSIUM SERUM 4.1 MEQ/L (3.5-5.1); SODIUM LEVEL 135 MEQ/L (136-145)
[2018-01-16] MEDS: DULoxetine 30 MG CAP (CYMBALTA) PO (19:58)
[2018-01-16] MEDS: MEMANTINE 5MG TABLET (NAMENDA) PO (19:59)
[2018-01-16] MEDS: DONEPEZIL 5 MG TAB PO (19:59)
[2018-01-16] MEDS: amLODIPine 5 MG TAB PO (20:00)
[2018-01-16] MEDS: RIVAROXABAN 15 MG TAB (XARELTO) PO (20:00)
[2018-01-17] MEDS: LEVOTHYROXINE 100MCG TABLET (0.1MG) PO (06:13)
[2018-01-17] MEDS: DIGOXIN 0.125 MG TAB PO (09:41)
[2018-01-17] MEDS: MIRALAX *UNIT DOSE* 17GM PACKET PO (09:41)
[2018-01-17] MEDS: SENOKOT S TAB PO ×2 (09:41→20:36)
[2018-01-17] MEDS: METOPROLOL TARTRATE 100 MG TAB PO ×2 (09:42→20:36)
[2018-01-17] MEDS: CLOTRIMAZOLE 1% TOPICAL CREAM 30GM TOP ×2 (09:42→20:37)
[2018-01-17] MEDS: ALLOPURINOL 300 MG TAB PO (09:42)
[2018-01-17] MEDS: MEMANTINE 5MG TABLET (NAMENDA) PO (20:35)
[2018-01-17] MEDS: DULoxetine 30 MG CAP (CYMBALTA) PO (20:35)
[2018-01-17] MEDS: RIVAROXABAN 15 MG TAB (XARELTO) PO (20:36)
[2018-01-17] MEDS: amLODIPine 5 MG TAB PO (20:36)
[2018-01-17] MEDS: DONEPEZIL 5 MG TAB PO (20:36)
[2018-01-18] MEDS: LEVOTHYROXINE 100MCG TABLET (0.1MG) PO (05:48)
[2018-01-18] MEDS: SENOKOT S TAB PO (08:43)
[2018-01-18] MEDS: MIRALAX *UNIT DOSE* 17GM PACKET PO (08:43)
[2018-01-18] MEDS: METOPROLOL TARTRATE 100 MG TAB PO (08:43)
[2018-01-18] MEDS: ALLOPURINOL 300 MG TAB PO (08:44)
[2018-01-18] MEDS: CLOTRIMAZOLE 1% TOPICAL CREAM 30GM TOP (08:44)
== END 2018-01-18 09:45 | DRG 682 ==
LOC: M MSPAV 01-06 19:46 → M PCU 01-05 21:21 → M MSPAV 01-08 22:06 → M ED 16:55 → M ED INP 21:18
DX: N17.9 Acute kidney failure, unspecified (principal); J18.9 Pneumonia, unspecified organism; E87.1 Hypo-osmolality and hyponatremia; I47.2 Ventricular tachycardia; F03.90 Unspecified dementia, unspecified severity, without behavioral disturbance, psychotic disturbance, mood disturbance, and anxiety; E03.9 Hypothyroidism, unspecified; I11.0 Hypertensive heart disease with heart failure; G47.33 Obstructive sleep apnea (adult) (pediatric); Z66 Do not resuscitate; M54.5 Low back pain; J30.9 Allergic rhinitis, unspecified; K21.9 Gastro-esophageal reflux disease without esophagitis; I48.2 Chronic atrial fibrillation; M10.9 Gout, unspecified; I50.9 Heart failure, unspecified; E86.0 Dehydration; E78.5 Hyperlipidemia, unspecified; E55.9 Vitamin D deficiency, unspecified; E87.6 Hypokalemia; E83.42 Hypomagnesemia; K59.00 Constipation, unspecified; R59.0 Localized enlarged lymph nodes; Z79.01 Long term (current) use of anticoagulants; Z79.899 Other long term (current) drug therapy